=== PATIENT | female | born 1985 ===

== ENCOUNTER 2020-08-02 14:21 | Outpatient (REF) | payer OTHER, SELFPAY ==
--- NOTE | 2020-08-02 | PFT_ITS ---
INDICATION: Asthma. SPIROMETRY: FEV1 to FVC of 91% with an FEV1 of 3.05 L which is 96% predicted and an FVC of 3.34 L which is 88% predicted. No significant response to bronchodilators noted. Maximum voluntary ventilation 97% predicted. LUNG VOLUMES: Total lung capacity 81% predicted with an expiratory reserve volume of 49% predicted likely from elevated BMI. DIFFUSION CAPACITY: DLCO 82% predicted. COMPARISONS: None. INTERPRETATION: No obstructive nor restrictive ventilatory defects identified. No significant response to bronchodilators noted. Lung volumes are low normal and also a decrease in the expiratory reserve volume secondary to an elevated BMI. Diffusion capacity is also low normal. If asthma is in the differential, a methacholine challenge may be helpful in assessing for hyperreactive airways, otherwise clinical correlation warranted. George Sebastian MD MR/MODL / [id number]
== END 2020-08-02 14:22 | disposition home or self-care (01) ==
LOC: HO.RESP 14:21
PROVIDERS: PCP Internal Medicine; Visit Provider Nurse Practitioner Primary Care
DX: J45.41 Moderate persistent asthma with (acute) exacerbation (principal)
CPT/HCPCS: 94060; 94727; 94729

== ENCOUNTER → 2020-10-14 08:56 | Outpatient (BNVA) | payer OTHER, SELFPAY | PROVIDERS: PCP Family Medicine; Visit Provider Internal Medicine | DX: Z76.89 Persons encountering health services in other specified circumstances (principal) ==

== ENCOUNTER 2021-02-02 13:50 | Outpatient (REF) | payer OTHER, SELFPAY ==
--- NOTE | ~2021-02-02 | US_ITS ---
EXAMINATION: US THYROID CLINICAL INFORMATION: Nontoxic multinodular goiter. Age 35. COMPARISON: Ultrasound soft tissue head/neck thyroid dated 05/18/2020 and 08/29/2018. TECHNIQUE: Linear transducer grayscale and color Doppler examination with attention to the region of the thyroid. FINDINGS: SIZE: Measurements of the thyroid lobes and nodules are given in sagittal, anteroposterior and transverse dimensions respectively. Right Thyroid Lobe: 4.5 x 2.0 x 1.2 cm, volume 5.6 mL. Previously 5.0 x 1.9 x 1.4 cm, volume 7.0 mL. Parenchyma: The gland echotexture is heterogeneous. Thyroid vascularity is normal. Left Thyroid Lobe: 4.7 x 1.6 x 1.9 cm, volume 7.5 mL. Previously 4.2 x 1.6 x 1.6 cm, volume 5.6 mL. Parenchyma: The gland echotexture is heterogeneous. Thyroid vascularity is normal. Isthmus: 0.6 cm in maximum AP dimension. Previously 0.5 cm. Estimated total number of nodules greater than or equal to 1 cm: 0. Media Intern nodules are described as follows: 1. Location: Right mid. Size: 0.9 x 0.5 x 0.7 cm, volume 0.2 mL. Previously: 0.8 x 0.5 x 0.7 cm, volume 0.15 mL. Nodule characteristics: Composition: Solid (2). Echogenicity: Hypoechoic (2). Shape: Not taller than wide (0). Margins: Ill-defined (0). Echogenic Foci: None (0). ACR TI-RADS total points: 4 ACR TI-RADS category: 4 No significant change from prior exam. 2. Location: Left inferior. Size: 0.6 x 0.3 x 0.5 cm, volume 0.05 mL. Previously: 0.4 x 0.3 x 0.5 cm, volume 0.01 mL. Nodule characteristics: Composition: Solid (2). Echogenicity: Hyperechoic (1). Shape: Not taller than wide (0). Margins: Smooth (0). Echogenic Foci: None (0). ACR TI-RADS total points: 3 ACR TI-RADS category: 3 No significant change from prior exam. NODES: Largest node on right measures 1.5 cm short axis and approximately 3.6 cm long axis. Other right-sided nodes measures 0.9 cm short axis and under. Comparison with prior exam images shows a right-sided node measuring approximately 1.2 cm short axis and 3.4 cm long axis. Largest short axis parisa dimension on left measures 0.9 cm short axis and 1.7 cm in length along axis. Comparison with prior exam images demonstrates left-sided node measuring 0.7 x 1.7 cm. US/US thyroid IMPRESSION: 1. Right TI-RADS 4 nodule under 1 cm. No significant change. 2. Left TI-RADS 3 nodule under 1 cm. No significant change. 3. Prominent upper cervical nodes similar to prior exam. If further parisa characterization is clinically indicated, this may be performed with CT soft tissue neck with IV contrast. ACR TI-RADS RECOMMENDATION REFERENCE: Ultrasound-guided fine-needle aspiration, followup ultrasound, no further follow up. * TR3 (3 points): FNA if more than or equal to 2.5 cm in maximum dimension, followup ultrasound in 1, 3 and 5 years if 1.5 to 2.4 cm in maximum dimension. * TR4 (4-6 points): FNA if more than or equal to 1.5 cm in maximum dimension, followup ultrasound in 1, 2, 3 and 5 years if 1 to 1.4 cm in maximum dimension.
[2021-02-02 16:14] LABS: Free T4 (Free Thyroxine) 0.85 ng/dL (0.71-1.85); Thyroid Stimulating Hormone 0.64 uIU/mL (0.32-4.0); Vitamin D 25-OH Total 8.5 ng/mL (>30)
[2021-02-03 07:41] LABS: Triiodothyronine T3 Total 115 ng/dL (76-181)
[2021-02-05 19:26] LABS: Thyrotropin Receptor Antibody 4.37 IU/L (<=2.00)
[2021-02-10 12:47] LABS: Thyroid Stimulating Immunoglob 142 % baseline (<140)
== END 2021-02-02 13:51 | disposition home or self-care (01) ==
LOC: HO.US 13:50
PROVIDERS: PCP Family Medicine; Visit Provider Internal Medicine
DX: E04.2 Nontoxic multinodular goiter (principal); R59.0 Localized enlarged lymph nodes; E05.00 Thyrotoxicosis with diffuse goiter without thyrotoxic crisis or storm; E55.9 Vitamin D deficiency, unspecified
CPT/HCPCS: 36415; 76536; 82306; 83520; 84439; 84443; 84445; 84480

== ENCOUNTER 2021-02-04 15:09 | Outpatient (REF) | payer OTHER, SELFPAY | END 2021-02-04 15:10 | disposition home or self-care (01) | LOC: HO.LAB 15:09 | PROVIDERS: Visit Provider Internal Medicine | DX: Z20.822 Contact with and (suspected) exposure to COVID-19 (principal) | CPT/HCPCS: C9803; U0003; U0005 ==

== ENCOUNTER 2021-02-09 15:30 | Outpatient (REF) | payer OTHER, SELFPAY | END 2021-02-09 15:31 | disposition home or self-care (01) | LOC: HO.LAB 15:30 | PROVIDERS: Visit Provider Internal Medicine | DX: Z20.822 Contact with and (suspected) exposure to COVID-19 (principal) | CPT/HCPCS: C9803; U0003; U0005 ==

== ENCOUNTER 2021-02-14 13:35 | Emergency (ER) | payer OTHER, SELFPAY ==
--- NOTE | ~2021-02-14 | XR_ITS ---
EXAMINATION: XR CHEST CLINICAL INFORMATION: Chest tightness. COMPARISON: None TECHNIQUE: Frontal view of the chest was obtained. FINDINGS: Lungs are well-expanded and clear. The heart size and pulmonary vascularity is normal. No gross bony abnormality seen. XR/XR chest 1V IMPRESSION: Unremarkable chest exam.
[2021-02-14 13:38] VITALS: BP 136/99; BP 156/102; PULSE 81; PULSE 85; RESP 18; TEMP 36.7; O2SAT 97; O2SAT 99; BMI 52.4
--- NOTE | 2021-02-14 15:37 | PC.NURSE ---
ambulatory pulse ox remains 99-100%, hr 105, Leola SHINE aware
--- NOTE | 2021-02-14 15:38 | ECG_ITS ---
Test Reason : WEAKNESS Blood Pressure : / mmHG Vent. Rate : 080 BPM Atrial Rate : 080 BPM P-R Int : 182 ms QRS Dur : 110 ms QT Int : 394 ms P-R-T Axes : 031 003 042 degrees QTc Int : 454 ms Normal sinus rhythm Incomplete right bundle branch block Voltage criteria for left ventricular hypertrophy Abnormal ECG When compared with ECG of 18-MAY-2020 17:38, Incomplete right bundle branch block is now Present Referred By: Leola Andrew Electronically Signed By:KARLIE ELAINE
[2021-02-14 15:57] VITALS: O2SAT 99
[2021-02-14 16:18] LABS: Influenza A PCR NEGATIVE (Negative); Influenza B PCR NEGATIVE (Negative); Resp Syncy Virus RNA Qual PCR NEGATIVE (Negative); SARS COV2 PCR INHOUSE NEGATIVE (Negative)
--- NOTE | 2021-02-14 16:33 | ED.GENADULT ---
HPI - General Adult General Chief complaint: General Medical Stated complaint: Chills/ Body aches Time Seen by Provider: 02/14/21 15:04 Source: patient Mode of arrival: EMS History of Present Illness HPI narrative: 35-year-old female with a past medical history of Graves disease, multinodular thyroid, vitamin-D deficiency, presenting to the ED complaining chest tightness, intermittent SOB, worse on exertion, myalgias, generalized fatigue since last night. Admits 5 children at home are COVID-19 positive, she last tested negative for COVID-19 five days ago. Denies fever, cough, LE edema/calf pain, recent travel, abdominal pain, nausea/vomiting Onset (ago): day(s) Related Data Home Medications Medication Instructions Recorded Confirmed albuterol sulfate 90 mcg/actuation 2 puff PO Q4-6H PRN 09/06/20 10/14/20 aerosol inhaler benzonatate 100 mg capsule 100 mg PO Q8H PRN 09/06/20 10/14/20 blood pressure test kit-large #1 ea 09/06/20 10/14/20 cyclobenzaprine 10 mg tablet 10 mg PO BEDTIME 09/06/20 10/14/20 diclofenac sodium 50 mg 50 mg PO BID 09/06/20 10/14/20 tablet,delayed release ketoconazole 2 % shampoo 1 applic TOPICAL 2XW 09/06/20 10/14/20 triamcinolone acetonide 0.025 % applic TOPICAL 09/06/20 10/14/20 topical cream clindamycin HCl 300 mg capsule 300 mg PO BID 10/14/20 10/14/20 fluticasone propionate 110 0 mcg INHALATION 10/14/20 10/14/20 mcg/actuation HFA aerosol inhaler ibuprofen 800 mg tablet 800 mg PO TID 10/14/20 10/14/20 inhalational spacing device #1 ea 10/14/20 10/14/20 metoprolol tartrate 50 mg tablet 50 mg PO DAILY 10/14/20 10/14/20 Previous Rx's Medication Instructions Recorded albuterol sulfate 5 mg INHALATION Q4H PRN #30 ea 02/14/21 benzonatate [Tessalon Perles] 100 mg PO TID PRN #14 cap 02/14/21 Allergies Allergy/AdvReac Type Severity Reaction Status Date / Time aspirin [ASA] Allergy Unknown HIVES Verified 10/14/20 09:02 levofloxacin [From LEVAQUIN] Allergy Unknown RASH Verified 10/14/20 09:02 penicillin G Allergy Unknown Unknown Verified 10/14/20 09:02 Penicillins [PCN] Allergy Unknown HIVES Verified 10/14/20 09:02 Sulfa (Sulfonamide Allergy Unknown ITCHING Verified 10/14/20 09:02 Antibiotics) [SULFA (SULFONAMIDE ANTIBIOTICS)] Aspir-81 Allergy Unknown Unknown Uncoded 10/14/20 09:02 Sulfa Allergy Unknown Unknown Uncoded 10/14/20 09:02 SURGICAL TAPE Allergy Unknown UNKNOWN Uncoded 07/01/20 19:21 Review of Systems Review of Systems: Constitutional: No Fever, + Chills, No Night Sweats, + Fatigue, No Malaise ENT/Mouth: No Ear Pain, + Nasal Congestion, No Sinus Pain, No Hoarseness, No sore throat, No Rhinorrhea Eyes: No Eye Pain, No Discharge, No Vision Changes Cardiovascular: + Chest Pain, + SOB, + Dyspnea on Exertion, + Orthopnea, No Edema, No Palpitations Respiratory: + Cough, + Sputum, No Wheezing Gastrointestinal: No Nausea, No Vomiting, No Diarrhea, No Constipation, No Abdominal pain Genitourinary: No irregular bleeding, No Dysuria Musculoskeletal: No joint pain, No Myalgias, No Joint Swelling Skin: No Skin Lesions, No rash Neuro: No Weakness, No Numbness, No Paresthesias Yes all other systems are reviewed and are negative PMFSH Past Medical History Attestation statement: The following information was validated with the patient. Medical History Graves disease Multinodular thyroid Vitamin D deficiency Surgical History History of 2 sections History of excision of pilonidal cyst Family History Family History Father Hypertension Mother Hypertension Diabetes Social History Social History Smoking Status: Current every day smoker Advance Directives: Yes Advance Directives Information Provided: Yes Advance Directives on File: No Physical Exam Vital Signs: Vital Signs: Last Vital Signs Temp 98.0 F 02/14/21 13:38 Pulse 81 02/14/21 13:38 Resp 18 02/14/21 13:38 BP 156/102 H 02/14/21 13:38 Pulse Ox 99 02/14/21 15:57 Body Mass Index 52.4 Const: General: cooperative, healthy appearing, comfortable, no acute distress, well developed, alert and awake Orientation/consciousness: patient oriented x3 Limitations: no limitations HENMT: Head: Yes normal to inspection Ears: hearing grossly normal bilaterally General nose exam: Normal external nose present Face and sinus: Yes normal facial exam Eyes: General: appearance normal, both eyes and all related structures EOM: EOMs intact bilaterally Neck: Neck: Yes normal visual inspection and Yes no meningeal signs Resp: Effort & Inspection: normal respiratory effort Auscultation: clear to auscultation bilaterally, no rales, no rhonchi and no wheezes Cardio: Rate: regular rate Heart sounds: S1 normal heart sound present and S2 normal heart sound present GI: Inspection: Yes normal to inspection Palpation (GI): Soft to palpation, nontender, no guarding and not rigid Skin: Rashes: no rashes Wounds: no wounds Neuro: General: patient oriented x3 and no meningeal signs Gait exam (Neuro): Normal gait present Extrem: General: Yes normal to inspection, Yes no pedal edema and Yes no calf tenderness Course Course Course Narrative: XR chest 1V IMPRESSION: Unremarkable chest exam. -patient maintain saturations of 99-100% on RA during ambulation -COVID-19/influenza/RSV negative -1700--troponin and BNP negative. Results discussed with patient including worrisome signs and symptoms and strict return precautions. She verbalized understanding feel safe for discharge home Medical Decision Making MDM Narrative Medical decision making narrative: On exam mildly hypertensive, NAD, nontoxic appearing, lungs CTA, no LE edema or calf tenderness. Concern for viral syndrome/COVID-19. Rule out pneumonia and ACS. Unlikely PE/CHF Plan: EKG, labs, COVID-19 testing, ambulatory pulse ox Lab Data Result diagrams: 02/14/21 16:36 02/14/21 16:36 Labs: Lab Results 02/14/21 02/14/21 02/14/21 Range/Units 15:25 16:36 16:36 WBC 10.0 (4.8-10.8) X10*3/uL RBC 4.03 L (4.20-5.50) X10*6/uL Hgb 10.9 L (12.0-16.0) g/dl Hct 35.7 L (37-47) % MCV 88.6 (80-98) fL MCH 27.0 (27.0-33.0) pg MCHC 30.5 L (31.0-35.0) g/dl RDW 17.1 H (11.0-16.0) % Plt Count 284 (160-400) X10*3/uL MPV 10.4 (9.4-12.3) fL Immature Gran % (Auto) 0.3 (0.0-0.4) % Neut % (Auto) 67.9 (45-73) % Lymph % (Auto) 22.8 (20-40) % [place] % (Auto) 5.1 (2-11) % Eos % (Auto) 3.4 (0-4) % Baso % (Auto) 0.5 (0-2) % Lymph # (Auto) 2.3 (1.2-4.9) X10*3/uL [place] # (Auto) 0.5 (0.1-1.2) X10*3/uL Eos # (Auto) 0.3 (0.0-0.4) X10*3/uL Baso # (Auto) 0.1 (0.0-0.2) X10*3/uL Abs Immat Gran (auto) 0.03 (0.00-0.03) X10*3/uL Absolute Neuts (auto) 6.8 (2.0-8.3) X10*3/uL Absolute Nucleated RBC 0.000 (0.0-0.012) X10*3/uL Nucleated RBC % (auto) 0.0 (0.0-0.2) /100WBC Hold Blue Top Sodium 139 (135-145) mmol/L Potassium 4.0 (3.3-5.1) mmol/L Chloride 104 (96-108) mmol/L Carbon Dioxide 26 (22-29) mmol/L Anion Gap 13 (12-20) BUN 13 (9-16) mg/dL Creatinine 0.77 (0.5-1.4) mg/dL Estim Creat Clear Calc 144.2 Estimated GFR > 60 Random Glucose 98 (60-115) mg/dL Calcium 9.3 (8.4-10.2) mg/dL Troponin I High Sens (<3.5-17.0) ng/L B-Natriuretic Peptide (<100) pg/mL Coronavirus (PCR) NEGATIVE (Negative) Influenza Type A (PCR) NEGATIVE (Negative) Influenza Type B (PCR) NEGATIVE (Negative) RSV RNA Qual (PCR) NEGATIVE (Negative) 02/14/21 02/14/21 Range/Units 16:36 16:36 WBC (4.8-10.8) X10*3/uL RBC (4.20-5.50) X10*6/uL Hgb (12.0-16.0) g/dl Hct (37-47) % MCV (80-98) fL MCH (27.0-33.0) pg MCHC (31.0-35.0) g/dl RDW (11.0-16.0) % Plt Count (160-400) X10*3/uL MPV (9.4-12.3) fL Immature Gran % (Auto) (0.0-0.4) % Neut % (Auto) (45-73) % Lymph % (Auto) (20-40) % [place] % (Auto) (2-11) % Eos % (Auto) (0-4) % Baso % (Auto) (0-2) % Lymph # (Auto) (1.2-4.9) X10*3/uL [place] # (Auto) (0.1-1.2) X10*3/uL Eos # (Auto) (0.0-0.4) X10*3/uL Baso # (Auto) (0.0-0.2) X10*3/uL Abs Immat Gran (auto) (0.00-0.03) X10*3/uL Absolute Neuts (auto) (2.0-8.3) X10*3/uL Absolute Nucleated RBC (0.0-0.012) X10*3/uL Nucleated RBC % (auto) (0.0-0.2) /100WBC Hold Blue Top SEE NOTE Sodium (135-145) mmol/L Potassium (3.3-5.1) mmol/L Chloride (96-108) mmol/L Carbon Dioxide (22-29) mmol/L Anion Gap (12-20) BUN (9-16) mg/dL Creatinine (0.5-1.4) mg/dL Estim Creat Clear Calc Estimated GFR Random Glucose (60-115) mg/dL Calcium (8.4-10.2) mg/dL Troponin I High Sens < 3.5 (<3.5-17.0) ng/L B-Natriuretic Peptide < 10 (<100) pg/mL Coronavirus (PCR) (Negative) Influenza Type A (PCR) (Negative) Influenza Type B (PCR) (Negative) RSV RNA Qual (PCR) (Negative) ECG Data Attestation: I personally reviewed and interpreted this ECG as follows: Interpretation: EKG normal sinus rhythm with rate of 80. Nonischemic/no STEMI, QTC 454 Discharge Plan Discharge Clinical Impression: Acute viral syndrome Patient Disposition: Home, Self-Care Instructions: Viral Syndrome (ED) Additional Instructions: Your chest x-ray was unremarkable today in the ED. Her COVID-19 was negative Tessalon Perles for cough, take as needed Albuterol inhaler will help with shortness of breath/wheezing, take as needed Follow-up with your doctor Prescriptions: New benzonatate [Tessalon Perles] 100 mg capsule 100 mg PO TID PRN (Reason: cough) Qty: 14 RF: 0 albuterol sulfate 2.5 mg/0.5 mL solution for nebulization 5 mg inhalation Q4H PRN (Reason: shortness of breath or wheezing) Qty: 30 RF: 0 No Action cyclobenzaprine 10 mg tablet 10 mg PO BEDTIME RF: 0 diclofenac sodium 50 mg tablet,delayed release (DR/EC) 50 mg PO BID RF: 0 albuterol sulfate 90 mcg/actuation HFA aerosol inhaler 2 puff PO Q4-6H PRNRF: 0 triamcinolone acetonide 0.025 % cream topical RF: 0 (DME) blood pressure test kit-large Kit See Rx Instructions ea .ROUTE .MEDSUPPLY Qty: 1 RF: 0 ketoconazole 2 % shampoo 1 applic topical 2XW RF: 0 benzonatate 100 mg capsule 100 mg PO Q8H PRN (Reason: cough) RF: 0 (DME) Aerochamber Plus Flow-Vu Spacer See Rx Instructions ea .ROUTE .MEDSUPPLY Qty: 1 RF: 0 Flovent HFA 110 mcg/actuation HFA aerosol inhaler 0 mcg inhalation RF: 0 ibuprofen 800 mg tablet 800 mg PO TID RF: 0 clindamycin HCl 300 mg capsule 300 mg PO BID RF: 0 metoprolol tartrate 50 mg tablet 50 mg PO DAILY RF: 0 Referrals: Thania Padgett MD [Primary Care Provider] - 2 days
[2021-02-14 16:42] LABS: MANUAL DIFF FLAG NO
[2021-02-14 16:45] LABS: Basophils Absolute Auto 0.1 X10*3/uL (0.0-0.2); Basophils Percent Auto 0.5 % (0-2); Eosinophils Absolute Auto 0.3 X10*3/uL (0.0-0.4); Eosinophils Percent Auto 3.4 % (0-4); Hematocrit 35.7 % (37-47); Hemoglobin 10.9 g/dl (12.0-16.0); Imm Gran Abs Auto 0.03 X10*3/uL (0.00-0.03); Imm Gran Pct Auto 0.3 % (0.0-0.4); Lymphocytes Absolute Auto 2.3 X10*3/uL (1.2-4.9); Lymphocytes Percent Auto 22.8 % (20-40); Mean Corpuscular HGB Conc 30.5 g/dl (31.0-35.0); Mean Corpuscular Volume 88.6 fL (80-98); Mean Platelet Volume 10.4 fL (9.4-12.3); Monocytes Absolute Auto 0.5 X10*3/uL (0.1-1.2); Monocytes Percent Auto 5.1 % (2-11); Neutrophils Absolute Auto 6.8 X10*3/uL (2.0-8.3); Neutrophils Percent Auto 67.9 % (45-73); Platelet Count 284 X10*3/uL (160-400); Red Blood Count 4.03 X10*6/uL (4.20-5.50); Red Cell Distribution Width 17.1 % (11.0-16.0)
[2021-02-14 17:00] LABS: Anion Gap 13 (12-20); Blood Urea Nitrogen 13 mg/dL (9-16); Calcium 9.3 mg/dL (8.4-10.2); Carbon Dioxide 26 mmol/L (22-29); Chloride 104 mmol/L (96-108); Creatinine Clr Calc Pharmacy 144.2; Estimated Glomerular Filt Rate > 60; Glucose Random 98 mg/dL (60-115); Sodium 139 mmol/L (135-145)
[2021-02-14 17:09] LABS: B Type Natriuretic Peptide < 10 pg/mL (<100); Troponin-I High Sensitivity < 3.5 ng/L (<3.5-17.0)
== END 2021-02-14 17:31 | disposition home or self-care (01) ==
PROVIDERS: Physician Assistant; Emergency Provider Internal Medicine; PCP Family Medicine
DX: B34.9 Viral infection, unspecified (principal); M79.10 Myalgia, unspecified site; E55.9 Vitamin D deficiency, unspecified; F17.200 Nicotine dependence, unspecified, uncomplicated; Z71.6 Tobacco abuse counseling; Z79.899 Other long term (current) drug therapy; Z20.822 Contact with and (suspected) exposure to COVID-19
CPT/HCPCS: 0241U; 36415; 71045; 80048; 83880; 84484; 85025; 93005; 99283

== ENCOUNTER 2021-03-09 12:11 | Emergency (ER) | payer OTHER, SELFPAY ==
--- NOTE | ~2021-03-09 | US_ITS ---
EXAMINATION: US VENOUS ULTRASOUND WITH DOPPLER LOWER EXTREMITY, LEFT CLINICAL INFORMATION: Leg pain and swelling COMPARISON: None TECHNIQUE: Ultrasound of the deep veins is performed from the hip to the calf with compression sonography and color and pulse Doppler assessment. Spectral analysis with color-flow imaging is performed. FINDINGS: Patient is unable to tolerate full compression of left common femoral and greater saphenous vein or condyle flow is visualized. There is normal venous compression and respiratory variation and augmented flow. The visualized common femoral vein, superficial femoral vein, profunda femoral vein, popliteal vein, and the trifurcation region shows no evidence of deep venous thrombosis. There is no significant popliteal fossa cyst. If the patient's symptoms persist, followup ultrasound in 5 days 7 days might be of value to exclude proximal propagation from a non-visualized calf vein. US/US venous duplex LE LT IMPRESSION: No DVT demonstrated in the left lower extremity.
[2021-03-09 12:40] VITALS: BP 181/115; RESP 16; TEMP 36.7; BMI 53.2
[2021-03-09 14:30] VITALS: BP 145/76; PULSE 85; RESP 18; O2SAT 96
--- NOTE | 2021-03-09 14:30 | ECG_ITS ---
Test Reason : HYPERTENSION Blood Pressure : / mmHG Vent. Rate : 083 BPM Atrial Rate : 083 BPM P-R Int : 170 ms QRS Dur : 106 ms QT Int : 376 ms P-R-T Axes : 044 007 032 degrees QTc Int : 441 ms Normal sinus rhythm Incomplete right bundle branch block Voltage criteria for left ventricular hypertrophy Abnormal ECG When compared with ECG of 14-FEB-2021 16:07, No significant change was found Referred By: Sydnie Philippe Electronically Signed By:KARLIE ELAINE
--- NOTE | 2021-03-09 14:32 | ED.GENADULT ---
HPI - General Adult General Chief complaint: General Medical <SILVIO Cain - Last Filed: 03/09/21 23:19> Stated complaint: leg swelling, high blood pressure <SILVIO Cain - Last Filed: 03/09/21 23:19> Time Seen by Provider: 03/09/21 14:18 <SILVIO Cain - Last Filed: 03/09/21 23:19> Source: patient, RN notes reviewed and old records reviewed <SILVIO Cain - Last Filed: 03/09/21 23:19> Mode of arrival: ambulatory <SILVIO Cain - Last Filed: 03/09/21 23:19> Limitations: no limitations <SILVIO Cain - Last Filed: 03/09/21 23:19> History of Present Illness HPI narrative: 35-year-old female with past medical history of vitamin-D deficiency, multinodular thyroid, obesity, asthma and Graves disease here today for complaining of high blood pressure and left leg pain and swelling. Patient also reports that she is short of breath with exertion. She also is SOB when she is lying down. Patient reports that she does have seasonal allergies and does not have anything at home to take for that except for her inhalers. Denies chest pain, syncope, presyncope. Patient reports that she called her doctor this morning when she checked her blood pressure was 160/110, however that was before she took her metoprolol. She was told to go to emergency department <SILVIO Cain - Last Filed: 03/09/21 23:19> Related Data Home medications: Home Medications Medication Instructions Recorded Confirmed albuterol sulfate 90 mcg/actuation 2 puff PO Q4-6H PRN 09/06/20 10/14/20 aerosol inhaler benzonatate 100 mg capsule 100 mg PO Q8H PRN 09/06/20 10/14/20 blood pressure test kit-large #1 ea 09/06/20 10/14/20 cyclobenzaprine 10 mg tablet 10 mg PO BEDTIME 09/06/20 10/14/20 diclofenac sodium 50 mg 50 mg PO BID 09/06/20 10/14/20 tablet,delayed release ketoconazole 2 % shampoo 1 applic TOPICAL 2XW 09/06/20 10/14/20 triamcinolone acetonide 0.025 % applic TOPICAL 09/06/20 10/14/20 topical cream clindamycin HCl 300 mg capsule 300 mg PO BID 10/14/20 10/14/20 fluticasone propionate 110 0 mcg INHALATION 10/14/20 10/14/20 mcg/actuation HFA aerosol inhaler ibuprofen 800 mg tablet 800 mg PO TID 10/14/20 10/14/20 inhalational spacing device #1 ea 10/14/20 10/14/20 metoprolol tartrate 50 mg tablet 50 mg PO DAILY 10/14/20 10/14/20 Previous Rx's Medication Instructions Recorded albuterol sulfate 5 mg INHALATION Q4H PRN #30 ea 02/14/21 benzonatate [Tessalon Perles] 100 mg PO TID PRN #14 cap 02/14/21 loratadine [Claritin] 10 mg PO DAILY #20 tab 03/09/21 <SILVIO Cain - Last Filed: 03/09/21 23:19> Allergies/adverse reactions: Allergies Allergy/AdvReac Type Severity Reaction Status Date / Time aspirin [ASA] Allergy Unknown HIVES Verified 03/09/21 12:45 levofloxacin [From LEVAQUIN] Allergy Unknown RASH Verified 03/09/21 12:45 penicillin G Allergy Unknown Unknown Verified 03/09/21 12:45 Penicillins [PCN] Allergy Unknown HIVES Verified 03/09/21 12:45 Sulfa (Sulfonamide Allergy Unknown ITCHING Verified 03/09/21 12:45 Antibiotics) [SULFA (SULFONAMIDE ANTIBIOTICS)] Aspir-81 Allergy Unknown Unknown Uncoded 10/14/20 09:02 Sulfa Allergy Unknown Unknown Uncoded 10/14/20 09:02 SURGICAL TAPE Allergy Unknown UNKNOWN Uncoded 07/01/20 19:21 <SILVIO Cain - Last Filed: 03/09/21 23:19> Review of Systems Review of Systems: Constitutional : No Weight loss, No Fever, No Chills, No Night Sweats, No Fatigue, No Malaise ENT/Mouth : No Hearing loss, No Ear Pain, No Nasal Congestion, No Sinus Pain, No Hoarseness, No sore throat, No Rhinorrhea, No Swallowing Difficulty Eyes: No Eye Pain, No Swelling, No Redness, No Foreign Body, No Discharge, No Vision Changes Cardiovascular : No Chest Pain, SOB,Dyspnea on Exertion, No Orthopnea, No Edema, No Palpitations Respiratory : No Cough, No Sputum, No Wheezing, No Smoke Exposure, No Dyspnea Gastrointestinal : No Nausea, No Vomiting, No Diarrhea, No Constipation, No abdominal Pain, No Hematochezia, No Melena Genitourinary : no irregular bleeding, No Dysuria, No Urinary Frequency, No Hematuria, No Urinary Incontinence, No Urgency, No Flank Pain, No Urinary Flow Changes, No Hesitancy Musculoskeletal : No joint pain, No Myalgias, No Joint Swelling Skin : No Skin Lesions, No rash Neuro : No Weakness, No Numbness, No Paresthesias, No Loss of Consciousness, No Dizziness, No Headache Psych : No Anxiety/Panic, No Depression, No SI/HI/AH/VH, No Social Issues, Heme/Lymph: No Bruising, No Bleeding,No Lymphadenopathy Endocrine : No Polyuria, No Polydipsia, No Temperature Intolerance <[facility] - Last Filed: 03/09/21 23:19> Yes all other systems are reviewed and are negative <TRUMAN Cain - Last Filed: 03/09/21 23:19> PMFSH Past Medical History Medical History: Medical History Graves disease Multinodular thyroid Vitamin D deficiency <[facility] - Last Filed: 03/09/21 23:19> Surgical History: Surgical History History of 2 sections History of excision of pilonidal cyst <TRUMAN Cain - Last Filed: 03/09/21 23:19> Family History Family History: Family History Father Hypertension Mother Hypertension Diabetes <TRUMAN Cain - Last Filed: 03/09/21 23:19> Social History Social History: Social History Alcohol intake: current Alcohol intake frequency: holidays/special occasions only Patient Tobacco Use Status: Current everyday Tobacco user Smoked in Last 30 Days: Yes Use of substances other than those prescribed or required for medical reasons: No Advance Directives: No Advance Directives Information Provided: No Patient : No <CHARLEE CainP-BC - Last Filed: 03/09/21 23:19> Physical Exam Vital Signs: Vital Signs: Last Vital Signs Temp 98.1 F 03/09/21 12:40 Pulse 85 03/09/21 14:30 Resp 18 03/09/21 14:30 BP 145/76 H 03/09/21 14:30 Pulse Ox 96 03/09/21 14:30 Body Mass Index 53.2 <Sydnie Philippe [employer] - Last Filed: 03/09/21 23:19> Vital Signs: Last Vital Signs Temp 98.1 F 03/09/21 12:40 Pulse 85 03/09/21 14:30 Resp 18 03/09/21 14:30 BP 145/76 H 03/09/21 14:30 Pulse Ox 96 03/09/21 14:30 Body Mass Index 53.2 <Juan Benitez MD - Last Filed: 03/11/21 13:53> Const: General: healthy appearing, no acute distress and well developed <CHARLEE CainP-BC - Last Filed: 03/09/21 23:19> Nutritional Appearance: well nourished <CHARLEE CainP-BC - Last Filed: 03/09/21 23:19> Orientation/consciousness: patient oriented x3 <Sydnie Philippe [employer] - Last Filed: 03/09/21 23:19> Neck: Neck: Yes normal visual inspection, Yes full ROM and Yes trachea midline <CHARLEE CainP-BC - Last Filed: 03/09/21 23:19> Thyroid: Thyroid normal <CHARLEE CainP-BC - Last Filed: 03/09/21 23:19> Resp: Auscultation: clear to auscultation bilaterally <SILVIO Cain - Last Filed: 03/09/21 23:19> Cardio: Rate: regular rate <SILVIO Cain - Last Filed: 03/09/21 23:19> Rhythm: regular rhythm <SILVIO Cain - Last Filed: 03/09/21 23:19> GI: Inspection: Yes normal to inspection and No distended <SILVIO Cain - Last Filed: 03/09/21 23:19> Palpation (GI): No hepatosplenomegaly present <SILVIO Cain - Last Filed: 03/09/21 23:19> Auscultation: normal bowel sounds <SILVIO Cain - Last Filed: 03/09/21 23:19> Skin: General skin exam: elasticity normal, turgor normal and dry skin <SILVIO Cain - Last Filed: 03/09/21 23:19> Neuro: General: patient oriented x3 <SILVIO Cain - Last Filed: 03/09/21 23:19> Course Course Course Narrative: 35-year-old female with past medical history of multinodular thyroid, Graves disease, asthma, morbid obesity here today with shortness of breath, left leg swelling and pain and high blood pressure. Blood pressure in the ED 145/76 heart rate 85. Will do ultrasound of her L leg to rule out DVT. Patient reports that she does have seasonal allergies, besides her inhaler does not take anything else for it. Her lung sounds are clear anteriorly and posteriorly. Patient looks common relaxed. <SILVIO Cain - Last Filed: 03/09/21 23:19> I have reviewed the chart <Juan Benitez MD - Last Filed: 03/11/21 13:53> Reevaluation(s) Reevaluation #1: Patient denies any CP, SOB. All lab work negative for any abnormalities, mild anemia, that has unchanged since February 14. BNP negative. Ultrasound done and negative for DVT. Patient reports that she does have seasonal allergies, I will send her home with Michael. She is agreeable to that. She will follow-up with her PCP in 2-3 days <KYLIE Cain- - Last Filed: 03/09/21 23:19> Medical Decision Making Lab Data Result diagrams: : 03/09/21 14:52 03/09/21 14:52 <KYLIE Cain-BC - Last Filed: 03/09/21 23:19> Labs: Lab Results 03/09/21 03/09/21 03/09/21 Range/Units 14:52 14:52 14:52 WBC 10.8 (4.8-10.8) X10*3/uL RBC 4.02 L (4.20-5.50) X10*6/uL Hgb 10.8 L (12.0-16.0) g/dl Hct 35.1 L (37-47) % MCV 87.3 (80-98) fL MCH 26.9 L (27.0-33.0) pg MCHC 30.8 L (31.0-35.0) g/dl RDW 16.3 H (11.0-16.0) % Plt Count 291 (160-400) X10*3/uL MPV 10.7 (9.4-12.3) fL Immature Gran % (Auto) 0.3 (0.0-0.4) % Neut % (Auto) 71.5 (45-73) % Lymph % (Auto) 18.5 L (20-40) % [place] % (Auto) 5.5 (2-11) % Eos % (Auto) 3.6 (0-4) % Baso % (Auto) 0.6 (0-2) % Lymph # (Auto) 2.0 (1.2-4.9) X10*3/uL [place] # (Auto) 0.6 (0.1-1.2) X10*3/uL Eos # (Auto) 0.4 (0.0-0.4) X10*3/uL Baso # (Auto) 0.1 (0.0-0.2) X10*3/uL Abs Immat Gran (auto) 0.03 (0.00-0.03) X10*3/uL Absolute Neuts (auto) 7.8 (2.0-8.3) X10*3/uL Absolute Nucleated RBC 0.000 (0.0-0.012) X10*3/uL Nucleated RBC % (auto) 0.0 (0.0-0.2) /100WBC Sodium 137 (135-145) mmol/L Potassium 4.1 (3.3-5.1) mmol/L Chloride 107 (96-108) mmol/L Carbon Dioxide 20 L (22-29) mmol/L Anion Gap 14 (12-20) BUN 11 (9-16) mg/dL Creatinine 0.73 (0.5-1.4) mg/dL Estim Creat Clear Calc 153.6 Estimated GFR > 60 Random Glucose 119 H (60-115) mg/dL Calcium 9.0 (8.4-10.2) mg/dL Troponin I High Sens < 3.5 (<3.5-17.0) ng/L B-Natriuretic Peptide < 10 (<100) pg/mL <Sydnie Philippe, [employer]- - Last Filed: 03/09/21 23:19> Lab Results 03/09/21 03/09/21 03/09/21 Range/Units 14:52 14:52 14:52 WBC 10.8 (4.8-10.8) X10*3/uL RBC 4.02 L (4.20-5.50) X10*6/uL Hgb 10.8 L (12.0-16.0) g/dl Hct 35.1 L (37-47) % MCV 87.3 (80-98) fL MCH 26.9 L (27.0-33.0) pg MCHC 30.8 L (31.0-35.0) g/dl RDW 16.3 H (11.0-16.0) % Plt Count 291 (160-400) X10*3/uL MPV 10.7 (9.4-12.3) fL Immature Gran % (Auto) 0.3 (0.0-0.4) % Neut % (Auto) 71.5 (45-73) % Lymph % (Auto) 18.5 L (20-40) % [place] % (Auto) 5.5 (2-11) % Eos % (Auto) 3.6 (0-4) % Baso % (Auto) 0.6 (0-2) % Lymph # (Auto) 2.0 (1.2-4.9) X10*3/uL [place] # (Auto) 0.6 (0.1-1.2) X10*3/uL Eos # (Auto) 0.4 (0.0-0.4) X10*3/uL Baso # (Auto) 0.1 (0.0-0.2) X10*3/uL Abs Immat Gran (auto) 0.03 (0.00-0.03) X10*3/uL Absolute Neuts (auto) 7.8 (2.0-8.3) X10*3/uL Absolute Nucleated RBC 0.000 (0.0-0.012) X10*3/uL Nucleated RBC % (auto) 0.0 (0.0-0.2) /100WBC Sodium 137 (135-145) mmol/L Potassium 4.1 (3.3-5.1) mmol/L Chloride 107 (96-108) mmol/L Carbon Dioxide 20 L (22-29) mmol/L Anion Gap 14 (12-20) BUN 11 (9-16) mg/dL Creatinine 0.73 (0.5-1.4) mg/dL Estim Creat Clear Calc 153.6 Estimated GFR > 60 Random Glucose 119 H (60-115) mg/dL Calcium 9.0 (8.4-10.2) mg/dL Troponin I High Sens < 3.5 (<3.5-17.0) ng/L B-Natriuretic Peptide < 10 (<100) pg/mL <Juan Benitez MD - Last Filed: 03/11/21 13:53> Discharge Plan Discharge Clinical Impression: FINLEY (dyspnea on exertion) <SILVIO Cain - Last Filed: 03/09/21 23:19> Patient Disposition: Home, Self-Care <SILVIO Cain - Last Filed: 03/09/21 23:19> Instructions: Shortness of Breath (ED) <SILVIO Cain - Last Filed: 03/09/21 23:19> Additional Instructions: You were seen here today for complaints of high blood pressure, shortness of breath and left leg swelling and pain. All your lab work was negative for any abnormal findings. Your ultrasound was also negative for any blood clots. Follow-up with your primary care doctor in 2-3 days. You may return to emergency department if you symptoms will return or if you will experience any additional concerning symptoms. Please make sure you take your medication for blood pressure <SILVIO Cain - Last Filed: 03/09/21 23:19> Prescriptions: New loratadine [Claritin] 10 mg tablet 10 mg PO DAILY Qty: 20 RF: 0 No Action benzonatate [Tessalon Perles] 100 mg capsule 100 mg PO TID PRN (Reason: cough) Qty: 14 RF: 0 albuterol sulfate 2.5 mg/0.5 mL solution for nebulization 5 mg inhalation Q4H PRN (Reason: shortness of breath or wheezing) Qty: 30 RF: 0 cyclobenzaprine 10 mg tablet 10 mg PO BEDTIME RF: 0 diclofenac sodium 50 mg tablet,delayed release (DR/EC) 50 mg PO BID RF: 0 albuterol sulfate 90 mcg/actuation HFA aerosol inhaler 2 puff PO Q4-6H PRNRF: 0 triamcinolone acetonide 0.025 % cream topical RF: 0 (DME) blood pressure test kit-large Kit See Rx Instructions ea .ROUTE .MEDSUPPLY Qty: 1 RF: 0 ketoconazole 2 % shampoo 1 applic topical 2XW RF: 0 benzonatate 100 mg capsule 100 mg PO Q8H PRN (Reason: cough) RF: 0 (DME) Aerochamber Plus Flow-Vu Spacer See Rx Instructions ea .ROUTE .MEDSUPPLY Qty: 1 RF: 0 Flovent HFA 110 mcg/actuation HFA aerosol inhaler 0 mcg inhalation RF: 0 ibuprofen 800 mg tablet 800 mg PO TID RF: 0 clindamycin HCl 300 mg capsule 300 mg PO BID RF: 0 metoprolol tartrate 50 mg tablet 50 mg PO DAILY RF: 0 <SILVIO Cain - Last Filed: 03/09/21 23:19> Referrals: Thania Padgett MD [Primary Care Provider] - 2 days <SILVIO Cain - Last Filed: 03/09/21 23:19> Interventions: ED Discharge Assessment Last Done: 03/09/21 18:31 <SILVIO Cain - Last Filed: 03/09/21 23:19> Discharge Date/Time: 03/09/21 18:33 <SILVIO Cain - Last Filed: 03/09/21 23:19>
[2021-03-09 15:01] LABS: Basophils Absolute Auto 0.1 X10*3/uL (0.0-0.2); Basophils Percent Auto 0.6 % (0-2); Eosinophils Absolute Auto 0.4 X10*3/uL (0.0-0.4); Eosinophils Percent Auto 3.6 % (0-4); Hematocrit 35.1 % (37-47); Hemoglobin 10.8 g/dl (12.0-16.0); Imm Gran Abs Auto 0.03 X10*3/uL (0.00-0.03); Imm Gran Pct Auto 0.3 % (0.0-0.4); Lymphocytes Percent Auto 18.5 % (20-40); MANUAL DIFF FLAG NO; Mean Corpuscular HGB Conc 30.8 g/dl (31.0-35.0); Mean Corpuscular Hemoglobin 26.9 pg (27.0-33.0); Mean Corpuscular Volume 87.3 fL (80-98); Mean Platelet Volume 10.7 fL (9.4-12.3); Monocytes Absolute Auto 0.6 X10*3/uL (0.1-1.2); Monocytes Percent Auto 5.5 % (2-11); Neutrophils Absolute Auto 7.8 X10*3/uL (2.0-8.3); Neutrophils Percent Auto 71.5 % (45-73); Platelet Count 291 X10*3/uL (160-400); Red Blood Count 4.02 X10*6/uL (4.20-5.50); Red Cell Distribution Width 16.3 % (11.0-16.0); White Blood Count 10.8 X10*3/uL (4.8-10.8)
[2021-03-09 15:32] LABS: Anion Gap 14 (12-20); Blood Urea Nitrogen 11 mg/dL (9-16); Carbon Dioxide 20 mmol/L (22-29); Chloride 107 mmol/L (96-108); Creatinine Clr Calc Pharmacy 153.6; Estimated Glomerular Filt Rate > 60; Glucose Random 119 mg/dL (60-115); Potassium 4.1 mmol/L (3.3-5.1); Sodium 137 mmol/L (135-145)
[2021-03-09 15:34] LABS: B Type Natriuretic Peptide < 10 pg/mL (<100); Troponin-I High Sensitivity < 3.5 ng/L (<3.5-17.0)
== END 2021-03-09 18:33 | disposition home or self-care (01) ==
PROVIDERS: Nurse Practitioner Family; Emergency Provider Emergency Medicine; PCP Family Medicine
DX: R60.0 Localized edema (principal); R06.00 Dyspnea, unspecified; F17.200 Nicotine dependence, unspecified, uncomplicated; Z71.6 Tobacco abuse counseling; Z79.899 Other long term (current) drug therapy
CPT/HCPCS: 36415; 80048; 83880; 84484; 85025; 93005; 93971; 99285

== ENCOUNTER 2021-03-23 10:31 | Emergency (ER) | payer OTHER, SELFPAY ==
--- NOTE | 2021-03-23 | ECG_ITS ---
Test Reason : PALPITATIONS Blood Pressure : / mmHG Vent. Rate : 106 BPM Atrial Rate : 106 BPM P-R Int : 158 ms QRS Dur : 102 ms QT Int : 352 ms P-R-T Axes : 048 001 069 degrees QTc Int : 467 ms Sinus tachycardia Voltage criteria for left ventricular hypertrophy Nonspecific ST and T wave abnormality Abnormal ECG When compared with ECG of 09-MAR-2021 15:16, Nonspecific ST abnormality are now Present Referred By: Generic ED Physician Electronically Signed By:MICHELINE STREET MD
--- NOTE | ~2021-03-23 | XR_ITS ---
EXAMINATION: XR CHEST CLINICAL INFORMATION: Question pneumonia COMPARISON: Previous chest x-ray most recent February 2021 TECHNIQUE: Frontal view of the chest was obtained. FINDINGS: No significant abnormality is noted involving the heart, lungs, mediastinum, bony thorax or soft tissues. XR/XR chest 1V IMPRESSION: Unremarkable examination.
[2021-03-23 10:35] VITALS: BP 146/88; PULSE 91; RESP 18; TEMP 36.6; O2SAT 95; BMI 53.2
--- NOTE | 2021-03-23 14:05 | ED_ITS ---
HPI - General Adult General Chief complaint: Anxiety Stated complaint: ? irregular hr Time Seen by Provider: 03/23/21 13:46 Source: patient Mode of arrival: ambulatory Limitations: no limitations History of Present Illness HPI narrative: Patient presents to ED for palpitations. Patient states she has felt like her heart been skipping of beats since last night. Patient states family history of of atrial fibrillation. 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 Patient not vaccinated for COVID. Patient denies any chest pain or shortness of breath. Patient denies any leg swelling, calf pain, or chest pain on inspiration Related Data Home Medications Medication Instructions Recorded Confirmed albuterol sulfate 90 mcg/actuation 2 puff PO Q4-6H PRN 09/06/20 10/14/20 aerosol inhaler benzonatate 100 mg capsule 100 mg PO Q8H PRN 09/06/20 10/14/20 blood pressure test kit-large #1 ea 09/06/20 10/14/20 cyclobenzaprine 10 mg tablet 10 mg PO BEDTIME 09/06/20 10/14/20 diclofenac sodium 50 mg 50 mg PO BID 09/06/20 10/14/20 tablet,delayed release ketoconazole 2 % shampoo 1 applic TOPICAL 2XW 09/06/20 10/14/20 triamcinolone acetonide 0.025 % applic TOPICAL 09/06/20 10/14/20 topical cream clindamycin HCl 300 mg capsule 300 mg PO BID 10/14/20 10/14/20 fluticasone propionate 110 0 mcg INHALATION 10/14/20 10/14/20 mcg/actuation HFA aerosol inhaler ibuprofen 800 mg tablet 800 mg PO TID 10/14/20 10/14/20 inhalational spacing device #1 ea 10/14/20 10/14/20 metoprolol tartrate 50 mg tablet 50 mg PO DAILY 10/14/20 10/14/20 Previous Rx's Medication Instructions Recorded albuterol sulfate 5 mg INHALATION Q4H PRN #30 ea 02/14/21 benzonatate [Tessalon Perles] 100 mg PO TID PRN #14 cap 02/14/21 loratadine [Claritin] 10 mg PO DAILY #20 tab 03/09/21 Allergies Allergy/AdvReac Type Severity Reaction Status Date / Time aspirin [ASA] Allergy Unknown HIVES Verified 03/23/21 10:41 levofloxacin [From LEVAQUIN] Allergy Unknown RASH Verified 03/23/21 10:41 penicillin G Allergy Unknown Unknown Verified 03/23/21 10:41 Penicillins [PCN] Allergy Unknown HIVES Verified 03/23/21 10:41 Sulfa (Sulfonamide Allergy Unknown ITCHING Verified 03/23/21 10:41 Antibiotics) [SULFA (SULFONAMIDE ANTIBIOTICS)] Aspir-81 Allergy Unknown Unknown Uncoded 10/14/20 09:02 Sulfa Allergy Unknown Unknown Uncoded 10/14/20 09:02 SURGICAL TAPE Allergy Unknown UNKNOWN Uncoded 07/01/20 19:21 Review of Systems Review of Systems: Yes all other systems are reviewed and are negative Constitutional: Constitutional: Reports as per HPI and Reports no additional constitutional complaints Eyes: Eyes: Reports as per HPI and Reports no additional eye complaints ENT: Reports system reviewed and no additional complaints, except as documented and Reports as per HPI Cardiovascular: Cardiovascular: Reports as per HPI, Reports no additional car diovascular complaints and Denies chest pain Comments: Palpitation Respiratory: Respiratory: Reports as per HPI and Reports no additional respiratory complaints Gastrointestinal: Gastrointestinal: Reports as per HPI and Reports no additional gastrointestinal complaints Genitourinary: Genitourinary: Reports no additional female genitourinary co mplaints and Reports as per HPI Musculoskeletal: Musculoskeletal: Reports no additional musculoskeletal complaints and Reports as per HPI Neurologic: Reports system reviewed and no additional complaints, except as documented and Reports as per HPI Psychiatric: Psychiatric: Reports no additional psychiatric complaints and Reports as per HPI PMFSH Past Medical History Medical History Graves disease Multinodular thyroid Vitamin D deficiency Surgical History History of 2 sections History of excision of pilonidal cyst Family History Family History Father Hypertension Mother Hypertension Diabetes Social History Social History Alcohol intake: current Alcohol intake frequency: holidays/special occasions only Patient Tobacco Use Status: Current everyday Tobacco user Use of substances other than those prescribed or required for medical reasons: No Advance Directives: No Advance Directives Information Provided: Yes Physical Exam Vital Signs: Vital Signs: Last Vital Signs Temp 98.5 F 03/23/21 17:17 Pulse 77 03/23/21 17:17 Resp 16 03/23/21 17:17 BP 121/77 03/23/21 17:17 Pulse Ox 97 03/23/21 17:17 Body Mass Index 53.2 Const: General: cooperative, healthy appearing, comfortable, no acute distress, well developed, alert, awake and Physically active Orientation/consciousness: oriented to time and patient oriented x3 HENMT: Head: Yes normal to inspection, Yes No palpable skull fracture present, Yes normocephalic, Yes atraumatic, No abrasion, No Acrocyanosis present and No palpable skull fracture Eyes: General: appearance normal, both eyes and all related structures Neck: Neck: Yes normal visual inspection, Yes full ROM, Yes no l ymphadenopathy, Yes no meningeal signs, Yes trachea midline, Yes supple and No tender Chest: Chest palpation & inspection: normal inspection of the chest and normal palpation of entire chest wall Resp: Effort & Inspection: normal respiratory effort and able to speak in complete sentences Auscultation: clear to auscultation bilaterally Cardio: Jugular venous distension: no JVD Heart sounds: S1 normal heart sound present and S2 normal heart sound present GI: Inspection: Yes normal to inspection and No abdominal wall ecchymosis Palpation (GI): Soft to palpation, not firm, nontender, no guarding and not rigid : General: No CVA tenderness and Yes no CVA tenderness Back/Spine/Pelvis: Back: no CVA tenderness, No CVA tenderness and No back tenderness Skin: General skin exam: no rashes or lesions noted and elasticity normal Neuro: General: oriented to time, patient oriented x3, no meningeal signs and CN's II-XI intact bilaterally Cranial nerves: Yes CN's II-XII intact bilaterally Extrem: Other: Lower extremities negative for swelling, pitting edema, calf tenderness. Psych: Appearance: grossly normal, well kempt and not disheveled Course Course Course Narrative: Will order EKG and thyroid levels. Also will do troponin, chest x-ray, and COVID swab. Reevaluation(s) Reevaluation #1: EKG shows sinus tach. Chest x-ray negative for pneumonia Time: 14:09 Reevaluation #2: Patient's COVID swab pending. Patient's D-dimer is 236 which makes a negative. D-dimerUpper normal limit is 278. PERC Score 0. Rest of labs are at baseline normal appearing awaiting for TSH Time: 15:05 Reevaluation #3: TSH came back slightly low 0.16. t4 is 1.05. Patient is not tachycardic on monitor. Patient is not in thyroid storm. Patient would like to eat some food. Patient made aware TSH is low which indicate she is once again back in hyperthyroidism. Patient states she has close follow-up tomorrow and was informed she should talk to her PCP in regards to going back on PTU to treat her hyperthyroidism. Patient already on metoprolol. Patient informed to return to the ED if symptoms return or worsen. Case was discussed wt Dr. Byers who agreeable with plan. Patient given copy of labs especially thyroid levels for follow-up with PCP Time: 18:17 Medical Decision Making [facility] Narrative Medical decision making narrative: Palpitation Lab Data Result diagrams: 03/23/21 15:05 /07/05 15:05 Labs: Lab Results 03/23/21 03/23/21 03/23/21 Range/Units 15:05 15:05 15:05 WBC 8.8 (4.8-10.8) X10*3/uL RBC 4.07 L (4.20-5.50) X10*6/uL Hgb 11.1 L (12.0-16.0) g/dl Hct 35.3 L (37-47) % MCV 86.7 (80-98) fL MCH 27.3 (27.0-33.0) pg MCHC 31.4 (31.0-35.0) g/dl RDW 16.3 H (11.0-16.0) % Plt Count 288 (160-400) X10*3/uL MPV 10.9 (9.4-12.3) fL Immature Gran % (Auto) 0.3 (0.0-0.4) % Neut % (Auto) 65.6 (45-73) % Lymph % (Auto) 21.2 (20-40) % [place] % (Auto) 7.7 (2-11) % Eos % (Auto) 4.6 H (0-4) % Baso % (Auto) 0.6 (0-2) % Lymph # (Auto) 1.9 (1.2-4.9) X10*3/uL [place] # (Auto) 0.7 (0.1-1.2) X10*3/uL Eos # (Auto) 0.4 (0.0-0.4) X10*3/uL Baso # (Auto) 0.1 (0.0-0.2) X10*3/uL Abs Immat Gran (auto) 0.03 (0.00-0.03) X10*3/uL Absolute Neuts (auto) 5.8 (2.0-8.3) X10*3/uL Absolute Nucleated RBC 0.000 (0.0-0.012) X10*3/uL Nucleated RBC % (auto) 0.0 (0.0-0.2) /100WBC PT (10.8-13.0) SEC INR (0.9-1.1) APTT (24.1-38.0) SEC D-Dimer NG/ML Sodium 138 (135-145) mmol/L Potassium 3.6 (3.3-5.1) mmol/L Chloride 100 (96-108) mmol/L Carbon Dioxide 28 (22-29) mmol/L Anion Gap 14 (12-20) BUN 13 (9-16) mg/dL Creatinine 0.71 (0.5-1.4) mg/dL Estim Creat Clear Calc 157.9 Estimated GFR > 60 Random Glucose 105 (60-115) mg/dL Calcium 9.6 D (8.4-10.2) mg/dL Total Bilirubin 0.3 (0.0-1.0) mg/dL AST 27 (5-31) U/L ALT 35 H (0-31) U/L Alkaline Phosphatase 73 (39-117) U/L Troponin I High Sens < 3.5 (<3.5-17.0) ng/L B-Natriuretic Peptide < 10 (<100) pg/mL Total Protein 7.6 (6.5-8.0) g/dL Albumin 3.8 (3.5-5.0) g/dL TSH 0.16 L (0.32-4.0) uIU/mL Free T4 1.06 (0.71-1.85) ng/dL Beta HCG, Quant < 2 mIU/mL Coronavirus (PCR) (Negative) Influenza Type A (PCR) (Negative) Influenza Type B (PCR) (Negative) RSV RNA Qual (PCR) (Negative) 03/23/21 03/23/21 Range/Units 15:05 16:07 WBC (4.8-10.8) X10*3/uL RBC (4.20-5.50) X10*6/uL Hgb (12.0-16.0) g/dl Hct (37-47) % MCV (80-98) fL MCH (27.0-33.0) pg MCHC (31.0-35.0) g/dl RDW (11.0-16.0) % Plt Count (160-400) X10*3/uL MPV (9.4-12.3) fL Immature Gran % (Auto) (0.0-0.4) % Neut % (Auto) (45-73) % Lymph % (Auto) (20-40) % [place] % (Auto) (2-11) % Eos % (Auto) (0-4) % Baso % (Auto) (0-2) % Lymph # (Auto) (1.2-4.9) X10*3/uL [place] # (Auto) (0.1-1.2) X10*3/uL Eos # (Auto) (0.0-0.4) X10*3/uL Baso # (Auto) (0.0-0.2) X10*3/uL Abs Immat Gran (auto) (0.00-0.03) X10*3/uL Absolute Neuts (auto) (2.0-8.3) X10*3/uL Absolute Nucleated RBC (0.0-0.012) X10*3/uL Nucleated RBC % (auto) (0.0-0.2) /100WBC PT 13.7 H (10.8-13.0) SEC INR 1.2 H (0.9-1.1) APTT 27.5 (24.1-38.0) SEC D-Dimer 236 NG/ML Sodium (135-145) mmol/L Potassium (3.3-5.1) mmol/L Chloride (96-108) mmol/L Carbon Dioxide (22-29) mmol/L Anion Gap (12-20) BUN (9-16) mg/dL Creatinine (0.5-1.4) mg/dL Estim Creat Clear Calc Estimated GFR Random Glucose (60-115) mg/dL Calcium (8.4-10.2) mg/dL Total Bilirubin (0.0-1.0) mg/dL AST (5-31) U/L ALT (0-31) U/L Alkaline Phosphatase (39-117) U/L Troponin I High Sens (<3.5-17.0) ng/L B-Natriuretic Peptide (<100) pg/mL Total Protein (6.5-8.0) g/dL Albumin (3.5-5.0) g/dL TSH (0.32-4.0) uIU/mL Free T4 (0.71-1.85) ng/dL Beta HCG, Quant mIU/mL Coronavirus (PCR) NEGATIVE (Negative) Influenza Type A (PCR) NEGATIVE (Negative) Influenza Type B (PCR) NEGATIVE (Negative) RSV RNA Qual (PCR) NEGATIVE (Negative) ECG Data Interpretation: Sinus tachycardia. Ventricular rate 106. Parents were 158. QRS 102. QTC 467. Negative STEMI Discharge Plan Discharge Clinical Impression: Palpitations, Hyperthyroidism Patient Disposition: Home, Self-Care Instructions: Heart Palpitations (ED), Hyperthyroidism (ED) Additional Instructions: Return to the ED immediately for any chest pain, shortness of breath, diaphoresis, extreme weight loss, headache, dizziness, fever, chills, neck pain, worsening palpitations, or any other concerning symptoms. Your TSH level came back low which indicates your probably back into hypothyroidism. Please speak with your PCP tomorrow to see if she will put you back on hyperthyroidism medication. Please give your PCP copy of labs given by nurse. Prescriptions: No Action benzonatate [Tessalon Perles] 100 mg capsule 100 mg PO TID PRN (Reason: cough) Qty: 14 RF: 0 albuterol sulfate 2.5 mg/0.5 mL solution for nebulization 5 mg inhalation Q4H PRN (Reason: shortness of breath or wheezing) Qty: 30 RF: 0 loratadine [Claritin] 10 mg tablet 10 mg PO DAILY Qty: 20 RF: 0 cyclobenzaprine 10 mg tablet 10 mg PO BEDTIME RF: 0 diclofenac sodium 50 mg tablet,delayed release (DR/EC) 50 mg PO BID RF: 0 albuterol sulfate 90 mcg/actuation HFA aerosol inhaler 2 puff PO Q4-6H PRNRF: 0 triamcinolone acetonide 0.025 % cream topical RF: 0 (DME) blood pressure test kit-large Kit See Rx Instructions ea .ROUTE .MEDSUPPLY Qty: 1 RF: 0 ketoconazole 2 % shampoo 1 applic topical 2XW RF: 0 benzonatate 100 mg capsule 100 mg PO Q8H PRN (Reason: cough) RF: 0 (DME) Aerochamber Plus Flow-Vu Spacer See Rx Instructions ea .ROUTE .MEDSUPPLY Qty: 1 RF: 0 Flovent HFA 110 mcg/actuation HFA aerosol inhaler 0 mcg inhalation RF: 0 ibuprofen 800 mg tablet 800 mg PO TID RF: 0 clindamycin HCl 300 mg capsule 300 mg PO BID RF: 0 metoprolol tartrate 50 mg tablet 50 mg PO DAILY RF: 0 Referrals: Thania Padgett MD [Primary Care Provider] - 2 days (Palpitations. Hyperthyroidism. TSH 0.16. T4 1.06. Chest x-ray negative. COVID swab negative. D-dimer negative. Labs are baseline. BNP negative) Stand Alone Forms: Work/School Release Discharge Date/Time: 03/23/21 18:45 Print Language: Bel[place]ian
[2021-03-23 14:40] VITALS: BP 113/77; PULSE 85; RESP 21; O2SAT 96
[2021-03-23 14:43] VITALS: PULSE 85
[2021-03-23] MEDS: 0.9 % Sodium Chloride 1,000 ML 999 ML IV (15:04)
[2021-03-23 15:18] LABS: MANUAL DIFF FLAG NO
[2021-03-23 15:23] LABS: Basophils Absolute Auto 0.1 X10*3/uL (0.0-0.2); Basophils Percent Auto 0.6 % (0-2); Eosinophils Absolute Auto 0.4 X10*3/uL (0.0-0.4); Eosinophils Percent Auto 4.6 % (0-4); Hematocrit 35.3 % (37-47); Hemoglobin 11.1 g/dl (12.0-16.0); Imm Gran Abs Auto 0.03 X10*3/uL (0.00-0.03); Imm Gran Pct Auto 0.3 % (0.0-0.4); Lymphocytes Absolute Auto 1.9 X10*3/uL (1.2-4.9); Lymphocytes Percent Auto 21.2 % (20-40); Mean Corpuscular HGB Conc 31.4 g/dl (31.0-35.0); Mean Corpuscular Hemoglobin 27.3 pg (27.0-33.0); Mean Corpuscular Volume 86.7 fL (80-98); Mean Platelet Volume 10.9 fL (9.4-12.3); Monocytes Absolute Auto 0.7 X10*3/uL (0.1-1.2); Monocytes Percent Auto 7.7 % (2-11); Neutrophils Absolute Auto 5.8 X10*3/uL (2.0-8.3); Neutrophils Percent Auto 65.6 % (45-73); Platelet Count 288 X10*3/uL (160-400); Red Blood Count 4.07 X10*6/uL (4.20-5.50); Red Cell Distribution Width 16.3 % (11.0-16.0); White Blood Count 8.8 X10*3/uL (4.8-10.8)
[2021-03-23 16:09] LABS: B Type Natriuretic Peptide < 10 pg/mL (<100); Troponin-I High Sensitivity < 3.5 ng/L (<3.5-17.0)
[2021-03-23 16:22] LABS: INTERNATIONAL NORM RATIO 1.2 (0.9-1.1); Prothrombin Time 13.7 SEC (10.8-13.0)
[2021-03-23 16:23] LABS: Alanine Aminotransferase 35 U/L (0-31); Albumin Level 3.8 g/dL (3.5-5.0); Alkaline Phosphatase 73 U/L (39-117); Anion Gap 14 (12-20); Aspartate Amino Transferase 27 U/L (5-31); Bilirubin Total 0.3 mg/dL (0.0-1.0); Blood Urea Nitrogen 13 mg/dL (9-16); Calcium 9.6 mg/dL (8.4-10.2); Carbon Dioxide 28 mmol/L (22-29); Chloride 100 mmol/L (96-108); Creatinine Clr Calc Pharmacy 157.9; Estimated Glomerular Filt Rate > 60; Glucose Random 105 mg/dL (60-115); Potassium 3.6 mmol/L (3.3-5.1); Sodium 138 mmol/L (135-145); Total Protein 7.6 g/dL (6.5-8.0)
[2021-03-23 16:25] LABS: Partial Thromboplastin Time 27.5 SEC (24.1-38.0)
[2021-03-23 16:27] LABS: HCG Quantitative < 2 mIU/mL; TSH reflex Free T4 0.16 uIU/mL (0.32-4.0)
[2021-03-23 17:11] LABS: D Dimer 236 NG/ML
[2021-03-23 17:16] LABS: Influenza A PCR NEGATIVE (Negative); Influenza B PCR NEGATIVE (Negative); Resp Syncy Virus RNA Qual PCR NEGATIVE (Negative); SARS COV2 PCR INHOUSE NEGATIVE (Negative)
[2021-03-23 17:17] VITALS: BP 121/77; PULSE 77; RESP 16; TEMP 36.9; O2SAT 97
[2021-03-23 17:30] LABS: Free T4 (Free Thyroxine) 1.06 ng/dL (0.71-1.85)
== END 2021-03-23 18:45 | disposition home or self-care (01) ==
PROVIDERS: Physician Assistant; Emergency Provider Emergency Medicine; PCP Family Medicine
DX: R00.2 Palpitations (principal); E05.90 Thyrotoxicosis, unspecified without thyrotoxic crisis or storm; Z20.822 Contact with and (suspected) exposure to COVID-19; I48.91 Unspecified atrial fibrillation; F17.210 Nicotine dependence, cigarettes, uncomplicated
CPT/HCPCS: 0241U; 36415; 71045; 80053; 83880; 84439; 84443; 84484; 84702; 85025; 85379; 85610; 85730; 93005; 96360; 99284; 99285

== ENCOUNTER → 2021-03-31 11:55 | Outpatient (BNVA) | payer OTHER, SELFPAY | PROVIDERS: PCP Family Medicine; Visit Provider Internal Medicine | CPT/HCPCS: Q3014 ==

== ENCOUNTER 2021-10-28 11:49 | Outpatient (REF) | payer OTHER, SELFPAY ==
[2021-10-28 13:24] LABS: Free T4 (Free Thyroxine) 0.94 ng/dL (0.71-1.85); Thyroid Stimulating Hormone 0.84 uIU/mL (0.32-4.0); Vitamin D 25-OH Total 8.8 ng/mL (>30)
[2021-10-29 11:57] LABS: Triiodothyronine T3 Total 124 ng/dL (76-181)
== END 2021-10-28 11:50 | disposition home or self-care (01) ==
LOC: HO.LAB 11:49
PROVIDERS: PCP Family Medicine; Visit Provider Internal Medicine
DX: E05.00 Thyrotoxicosis with diffuse goiter without thyrotoxic crisis or storm (principal); E04.2 Nontoxic multinodular goiter; E55.9 Vitamin D deficiency, unspecified
CPT/HCPCS: 36415; 82306; 84439; 84443; 84480

== ENCOUNTER → 2021-11-02 12:49 | Outpatient (BNVA) | payer OTHER, SELFPAY | PROVIDERS: PCP Family Medicine; Visit Provider Internal Medicine | DX: E05.00 Thyrotoxicosis with diffuse goiter without thyrotoxic crisis or storm (principal); E55.9 Vitamin D deficiency, unspecified; E04.2 Nontoxic multinodular goiter | CPT/HCPCS: 99212 ==

== ENCOUNTER 2022-01-03 16:07 | Outpatient (REF) | payer OTHER, SELFPAY ==
[2022-01-03 17:37] LABS: Free T4 (Free Thyroxine) 0.98 ng/dL (0.71-1.85); Thyroid Stimulating Hormone 1.42 uIU/mL (0.32-4.0)
[2022-01-04 19:41] LABS: Triiodothyronine T3 Total 116 ng/dL (76-181)
== END 2022-01-03 16:08 | disposition home or self-care (01) ==
LOC: HO.LAB 16:07
PROVIDERS: PCP Family Medicine; Visit Provider Internal Medicine
DX: E05.00 Thyrotoxicosis with diffuse goiter without thyrotoxic crisis or storm (principal); E55.9 Vitamin D deficiency, unspecified
CPT/HCPCS: 36415; 82306; 84439; 84443; 84480

== ENCOUNTER → 2022-02-08 13:37 | Outpatient (BNVA) | payer OTHER, SELFPAY | PROVIDERS: PCP Family Medicine; Visit Provider Internal Medicine | DX: E05.00 Thyrotoxicosis with diffuse goiter without thyrotoxic crisis or storm (principal); E55.9 Vitamin D deficiency, unspecified; E04.2 Nontoxic multinodular goiter | CPT/HCPCS: Q3014 ==

== ENCOUNTER 2023-03-02 14:16 | Outpatient (REF) | payer OTHER, SELFPAY ==
--- NOTE | ~2023-03-02 | US_ITS ---
EXAMINATION: US THYROID CLINICAL INFORMATION: Nontoxic multinodular goiter. COMPARISON: Thyroid ultrasound 02/02/2021 and 05/18/2020. TECHNIQUE: Linear transducer grayscale and color Doppler examination with attention to the region of the thyroid. FINDINGS: SIZE: Measurements of the thyroid lobes and nodules are given in sagittal, anteroposterior and transverse dimensions respectively. Right Thyroid Lobe: 4.2 x 1.6 x 1.5 cm, volume 5.3 mL. Previously 4.5 x 2.0 x 1.2 cm, volume 5.6 mL. Parenchyma: The gland echotexture is heterogeneous. Thyroid vascularity is normal. Left Thyroid Lobe: 4.5 x 1.7 x 1.7 cm, volume 6.8 mL. Previously 4.7 x 1.6 x 1.9 cm, volume 7.5 mL. Parenchyma: The gland echotexture is heterogeneous. Thyroid vascularity is normal. Isthmus: 0.5 cm in maximum AP dimension. Previously 0.6 cm. Estimated total number of nodules greater than or equal to 1 cm: 1. 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 Location: Right isthmus. Size: 1.0 x 0.6 x 0.8 cm, volume 0.23 mL. Previously: 0.9 x 0.5 x 0.7 cm, volume 0.2 mL. Nodule characteristics: Composition: Solid (2). Echogenicity: Hypoechoic (2). Shape: Not taller than wide (0). Margins: Smooth (0). Echogenic Foci: None (0). ACR TI-RADS total points: 4 Previous: 4 ACR TI-RADS category: 4 Previous: 4 Significant change in size (>/= 20% in 2 dimensions and minimal increase of 2 mm or 50% or greater increase in volume): No Change in features: No Change in ACR TI-RADS risk category: No 2. Location: Right isthmus. Size: 0.9 x 0.5 x 0.9 cm, volume 0.2 mL. Previously: Not previously documented, new. Nodule characteristics: Composition: Solid (2). Echogenicity: Isoechoic (1). Shape: Not taller than wide (0). Margins: Smooth (0). Echogenic Foci: None (0). ACR TI-RADS total points: 3 ACR TI-RADS category: 3 3. Location: Left lower pole. Size: 0.7 x 0.4 x 0.6 cm, volume 0.08 mL. Previously: 0.6 x 0.3 x 0.5 cm, volume 0.05 mL. Nodule characteristics: Composition: Solid (2). Echogenicity: Isoechoic (1). Shape: Not taller than wide (0). Margins: Smooth (0). Echogenic Foci: None (0). ACR TI-RADS total points: 3 Previous: 3 ACR TI-RADS category: 3 Previous: 3 Significant change in size (>/= 20% in 2 dimensions and minimal increase of 2 mm or 50% or greater increase in volume): Yes Change in features: No Change in ACR TI-RADS risk category: No NODES: An left cervical level II, a 1.5 x 0.9 1.6 cm reniform lymph node is seen. This shows faint corticomedullary differentiation and a vascular hilum. US/US thyroid IMPRESSION: 1. Bilateral thyroid nodules are seen, as detailed. Recommend continued thyroid ultrasound surveillance. 2. There is heterogeneous thyroid echotexture, consistent with with the provided history of Graves' disease. 3. A mildly enlarged left cervical lymph node is seen. This is a nonspecific finding, which should be managed on a clinical basis. If of continued clinical concern, consider follow-up ultrasound imaging in 3-6 months to ensure stability/regression. ACR TI-RADS RECOMMENDATION REFERENCE: Ultrasound-guided fine-needle aspiration, followup ultrasound, no further follow up. * TR1 (0 point) and TR2 (2 points): No FNA or follow up * TR3 (3 points): FNA if more than or equal to 2.5 cm in maximum dimension, followup ultrasound in 1, 3 and 5 years if 1.5 to 2.4 cm in maximum dimension. * TR4 (4-6 points): FNA if more than or equal to 1.5 cm in maximum dimension, followup ultrasound in 1, 2, 3 and 5 years if 1 to 1.4 cm in maximum dimension. * TR5 (more than or equal to 7 points): FNA if more than or equal to 1 cm in maximum dimension, followup ultrasound every year for 5 years if 0.5 to 0.9 cm in maximum dimension. * TR3, TR4 or TR5 nodules that are below the size threshold for follow up receive no follow up.
[2023-03-02 17:58] LABS: Free T4 (Free Thyroxine) 0.92 ng/dL (0.71-1.85); Thyroid Stimulating Hormone 1.85 uIU/mL (0.32-4.0); Vitamin D 25-OH Total 32.3 ng/mL (>30)
== END 2023-03-02 14:17 | disposition home or self-care (01) ==
LOC: HO.HMGCX 14:16
PROVIDERS: Absent Provider Internal Medicine; PCP Registered Nurse; Visit Provider Internal Medicine
DX: E05.00 Thyrotoxicosis with diffuse goiter without thyrotoxic crisis or storm (principal); E55.9 Vitamin D deficiency, unspecified; E04.2 Nontoxic multinodular goiter
CPT/HCPCS: 36415; 76536; 82306; 84439; 84443

== ENCOUNTER 2023-03-22 16:55 | Emergency (ER) | payer OTHER, SELFPAY ==
--- NOTE | ~2023-03-22 | XR_ITS ---
EXAMINATION: XR KNEE, LEFT CLINICAL INFORMATION: Left knee pain. COMPARISON: None available. TECHNIQUE: Four views of the left knee. FINDINGS: Bones and soft tissues are normal. No fracture or joint effusion. Alignment is anatomic. Joint spaces are well maintained. No abnormal soft tissue calcification. XR/XR knee LT 2V IMPRESSION: Unremarkable left knee.
--- NOTE | ~2023-03-22 | XR_ITS ---
EXAMINATION: XR KNEE, RIGHT CLINICAL INFORMATION: Right knee pain. COMPARISON: None available. TECHNIQUE: Four views of the right knee. FINDINGS: Mild medial femoral-tibial joint space narrowing is seen. There is no acute fracture or dislocation. Possible trace suprapatellar joint effusion. The soft tissues are unremarkable. XR/XR knee RT 2V IMPRESSION: Mild medial femoral-tibial joint space narrowing may be normal for the patient, but could be degenerative in nature suggesting osteoarthritis. Possible trace suprapatellar joint effusion.
[2023-03-22 17:17] VITALS: BP 126/78; PULSE 98; RESP 18; TEMP 36.8; O2SAT 94; BMI 58.2
--- NOTE | 2023-03-22 17:17 | ED.GENADULT ---
HPI - General Adult General Chief complaint: Extremity Injury, Lower Stated complaint: Pain both Knees Time Seen by Provider: 03/22/23 17:42 Source: patient and RN notes reviewed Mode of arrival: ambulatory Limitations: no limitations History of Present Illness HPI narrative: This is a 37-year-old female, with a past medical history of Graves disease, and asthma, presenting to the emergency department with complaints of bilateral knee pain for the last 4 days. Patient reports she has had no recent trauma or injury however woke up 4 days ago and immediately felt pain in her bilateral knees. Patient reports that throughout the day the pain improves as she is moving around. Her telemedicine physician saw her yesterday and gave her Toradol which helped with her symptoms temporarily however her pain persists. Denies any fevers or chills. No other complaints or concerns at time. MD complaint: Bilateral knee pain Onset (ago): day(s) Location: lower extremity Radiation: non-radiation Quality: aching Pain Consistency: constant Relieving factors: none Exacerbating factors: none Associated symptoms: denies other symptoms Treatments prior to arrival: none Related Data Home Medications Medication Instructions Recorded Confirmed albuterol sulfate 90 mcg/actuation 2 puff PO Q4-6H PRN 09/06/20 02/08/22 aerosol inhaler benzonatate 100 mg capsule 100 mg PO Q8H PRN cough 09/06/20 02/08/22 blood pressure test kit-large #1 margo 09/06/20 02/08/22 cyclobenzaprine 10 mg tablet 10 mg PO BEDTIME 09/06/20 02/08/22 diclofenac sodium 50 mg 50 mg PO BID 09/06/20 02/08/22 tablet,delayed release ketoconazole 2 % shampoo 1 applic topical 2XW 09/06/20 02/08/22 triamcinolone acetonide 0.025 % applic topical 09/06/20 02/08/22 topical cream ibuprofen 800 mg tablet 800 mg PO TID 10/14/20 02/08/22 inhalational spacing device #1 ea 10/14/20 02/08/22 metoprolol tartrate 50 mg tablet 50 mg PO DAILY 10/14/20 02/08/22 fluticasone propionate 110 110 mcg inhalation ONCE PRN 03/31/21 02/08/22 mcg/actuation HFA aerosol inhaler metformin 500 mg tablet 500 mg PO DAILY 11/02/21 02/08/22 Previous Rx's Medication Instructions Recorded albuterol sulfate 2.5 mg/0.5 mL 5 mg inhalation Q4H PRN shortness 02/14/21 solution for nebulization of breath or wheezing #30 ea benzonatate 100 mg capsule 100 mg PO TID PRN cough #14 caps 02/14/21 (Annalisemiltonrory Sergo) loratadine 10 mg tablet (Claritin) 10 mg PO DAILY #20 tabs 03/09/21 cholecalciferol (vitamin D3) 1,250 1,250 mcg PO QWEEK 8 weeks #8 caps 11/02/21 mcg (50,000 unit) capsule cholecalciferol (vitamin D3) 50 50 mcg PO DAILY 30 days #30 caps 11/21/22 mcg (2,000 unit) capsule cyclobenzaprine 5 mg tablet 5 mg PO TID PRN muscle spasm #14 03/22/23 tabs ibuprofen 800 mg tablet 800 mg PO Q8H PRN pain #45 tabs 03/22/23 prednisone 20 mg tablet 40 mg PO DAILY #10 tabs 03/22/23 Allergies Allergy/AdvReac Type Severity Reaction Status Date / Time aspirin [ASA] Allergy Unknown HIVES Verified 03/22/23 17:17 levofloxacin [From LEVAQUIN] Allergy Unknown RASH Verified 03/22/23 17:17 penicillin G Allergy Unknown Unknown Verified 03/22/23 17:17 Penicillins [PCN] Allergy Unknown HIVES Verified 02/08/22 13:53 Sulfa (Sulfonamide Allergy Unknown ITCHING Verified 03/22/23 17:17 Antibiotics) [SULFA (SULFONAMIDE ANTIBIOTICS)] Aspir-81 Allergy Unknown Unknown Uncoded 02/08/22 13:53 Sulfa Allergy Unknown Unknown Uncoded 02/08/22 13:53 SURGICAL TAPE Allergy Unknown UNKNOWN Uncoded 02/08/22 13:53 Review of Systems Review of Systems: Constitutional: No Weight loss, No Fever, No Chills ENT/Mouth: No Ear Pain, No Nasal Congestion, No Sinus Pain, No Hoarseness, No sore throat, No Rhinorrhea, No Swallowing Difficulty Cardiovascular: No Chest Pain, No SOB Respiratory: No Cough, No Sputum, No Wheezing Gastrointestinal: No Nausea, No Vomiting, No Diarrhea, No Constipation, No Abdominal pain Genitourinary: No Dysuria, No Urinary Frequency, No Hematuria, No Urinary Incontinence/retention, No Urgency, No Flank Pain Musculoskeletal: + joint pain, No Myalgias, No Joint Swelling Skin: No Skin Lesions, No rash Neuro: No Weakness, No Numbness, No Paresthesias Yes all other systems are reviewed and are negative Constitutional: Constitutional: Reports as per [facility] Past Medical History Medical History Graves disease Multinodular thyroid Vitamin D deficiency Surgical History History of 2 sections History of excision of pilonidal cyst Family History Family History Father Hypertension Mother Hypertension Diabetes Social History Social History Alcohol intake: current Alcohol intake frequency: holidays/special occasions only Patient Tobacco Use Status: Current everyday Tobacco user Advance Directives: No Advance Directives Information Provided: No Physical Exam ED Vital Signs: Vital Signs - 24 hr 03/22/23 17:17 Temperature 98.3 F Pulse Rate 98 Respiratory Rate 18 Blood Pressure 126/78 Pulse Oximetry 94 Oxygen Delivery Method Room Air BMI result Body Mass Index 58.2 Const General: cooperative, comfortable and no acute distress Orientation/consciousness: patient oriented x3 Limitations: no limitations [facility] Head: Yes normal to inspection, Yes normocephalic and Yes atraumatic Ears: hearing grossly normal bilaterally General nose exam: Normal external nose present Face and sinus: Yes normal facial exam Mouth: Normal oral and palatal mucosa present, oropharynx normal and moist mucous membranes Throat: Yes posterior oropharynx normal Eyes General: appearance normal, both eyes and all related structures Eyelids: Yes eyelids normal Conjunctivae: conjunctivae normal Sclerae: sclerae normal Pupils: Equal, round and reactive pupils present EOM: EOMs intact bilaterally Neck Neck: Yes normal visual inspection, Yes full ROM and Yes no lymphadenopathy Lymphatic: no lymphadenopathy noted Chest Chest palpation & inspection: normal inspection of the chest Resp Effort & Inspection: normal respiratory effort and able to speak in complete sentences Auscultation: clear to auscultation bilaterally, no crackles, no rales, no rhonchi and no wheezes Cardio Rate: regular rate Rhythm: regular rhythm Heart sounds: S1 normal heart sound present and S2 normal heart sound present GI Inspection: Yes normal to inspection Skin General skin exam: no rashes or lesions noted Trauma: no lacerations or abrasions Wounds: no wounds Neuro General: patient oriented x3 and moves all extremities Cranial nerves: Yes Equal, round and reactive pupils present Extrem Other: Bilateral knees with no obvious deformities or swelling, limited range of motion secondary to pain. Able to flex and extend however decreased secondary to pain. No erythema, edema noted. Tenderness to palpation along the bilateral patellas, and pain with varus and valgus strain. Unable to perform anterior and posterior drawer test secondary to pain General: Yes normal to inspection Right upper extremity: normal to inspection Left upper extremity: normal to inspection Right lower extremity: normal to inspection Left lower extremity: normal to inspection Course Course Course Narrative: RME- 37-year-old female presents for evaluation of bilateral knee pain. She has chronic issues with back and knees but reports the pain isn't worse over the last few days. She reports ?somatic scan to my house and gave me an injection but that only helped for a few hours. ? Plan for x-rays of the knees. Medical Decision Making Medical Decision Making [facility] Narrative: 37-year-old female with a past medical history of asthma, presenting to the emergency department for bilateral knee pain for the last 4 days. No trauma or injury. On examination patient is diffusely tender throughout her knees, x-rays reviewed with evidence of osteoarthritis. Discussed these results with patient and the importance of continuing to move the knees, rest, ice, and elevation. Also given referral to Orthopedics for follow-up. Discharge on a script for prednisone and ibuprofen. Advised to return with any new or worsening symptoms. Differential Diagnosis Differential Diagnoses: The differential diagnosis associated with the presentation includes Knee strain, contusion, fracture, arthritis Admission/Observation Consideration of admission/observation: Escalation of care including admission/observation considered Lab Data [facility] Lab Attestation statement: I reviewed the patient's lab results. Radiology Impression Discussion of test interpretation with radiology: I have reviewed the radiologist's reading. Radiologist Impression: EXAMINATION: XR KNEE, RIGHT? CLINICAL INFORMATION: Right knee pain.? COMPARISON: None available.? TECHNIQUE: Four views of the right knee. FINDINGS: Mild medial femoral-tibial joint space narrowing is seen. There is no acute fracture or dislocation. Possible trace suprapatellar joint effusion. The soft tissues are unremarkable. XR/XR knee RT 2V IMPRESSION: Mild medial femoral-tibial joint space narrowing may be normal for the patient, but could be degenerative in nature suggesting osteoarthritis. Possible trace suprapatellar joint effusion. ? Dictated By: Simone Hollingsworth MD Signed By: <Electronically signed by Simone Hollingsworth MD in OV> 03/22/23 1801 DD/ 1740 TD/TT:? Quality Supervisor: MARIAN EXAMINATION: XR KNEE, LEFT CLINICAL INFORMATION: Left knee pain.? COMPARISON: None available.? TECHNIQUE: Four views of the left knee. FINDINGS: Bones and soft tissues are normal. No fracture or joint effusion. Alignment is anatomic. Joint spaces are well maintained. No abnormal soft tissue calcification.? XR/XR knee LT 2V IMPRESSION: Unremarkable left knee. ? Dictated By: Simone Hollingsworth MD External Record Review External record reviewed: Inpatient record, Office record, Outpatient record, Prior outpatient labs, Prior outpatient radiology, Primary care record and Outside ED record Discharge Plan Discharge Clinical Impression: Bilateral knee pain Patient Disposition: Home, Self-Care Instructions: Knee Pain (ED) Additional Instructions: Take prescribed medications as directed. Rest, ice, elevation and wearing Edward wraps around your knees can help with pain and swelling. Please be aware that x-ray all can cause drowsiness, do not drink alcohol or drive while taking these medications. Follow-up with orthopedics if your symptoms persist, call to make an appointment. If any new or worsening symptoms occur please return for re-evaluation. Prescriptions: New prednisone 20 mg tablet 40 mg PO DAILY Qty: 10 0RF cyclobenzaprine 5 mg tablet 5 mg PO TID PRN (Reason: muscle spasm) Qty: 14 0RF ibuprofen 800 mg tablet 800 mg PO Q8H PRN (Reason: pain) Qty: 45 0RF No Action cholecalciferol (vitamin D3) 50 mcg (2,000 unit) capsule 50 mcg PO DAILY 30 Days Qty: 30 2RF benzonatate [Tessalon Perles] 100 mg capsule 100 mg PO TID PRN (Reason: cough) Qty: 14 0RF albuterol sulfate 2.5 mg/0.5 mL solution for nebulization 5 mg inhalation Q4H PRN (Reason: shortness of breath or wheezing) Qty: 30 0RF loratadine [Claritin] 10 mg tablet 10 mg PO DAILY Qty: 20 0RF cyclobenzaprine 10 mg tablet 10 mg PO BEDTIME diclofenac sodium 50 mg tablet,delayed release (DR/EC) 50 mg PO BID albuterol sulfate 90 mcg/actuation HFA aerosol inhaler 2 puff PO Q4-6H PRN triamcinolone acetonide 0.025 % cream topical (DME) blood pressure test kit-large Kit See Rx Instructions .ROUTE .MEDSUPPLY Qty: 1 Rx Instructions: As directed ketoconazole 2 % shampoo 1 applic topical 2XW benzonatate 100 mg capsule 100 mg PO Q8H PRN (Reason: cough) (DME) Aerochamber Plus Flow-Vu Spacer See Rx Instructions .ROUTE .MEDSUPPLY Qty: 1 Rx Instructions: As directed ibuprofen 800 mg tablet 800 mg PO TID metoprolol tartrate 50 mg tablet 50 mg PO DAILY fluticasone propionate 110 mcg/actuation HFA aerosol inhaler 110 mcg inhalation ONCE PRN metformin 500 mg tablet 500 mg PO DAILY cholecalciferol (vitamin D3) 1,250 mcg (50,000 unit) capsule 1,250 mcg PO QWEEK 56 Days Qty: 8 0RF Referrals: [facility] [place] [facility] [Provider Group]
== END 2023-03-22 19:44 | disposition home or self-care (01) ==
PROVIDERS: Emergency Provider Internal Medicine
DX: M25.562 Pain in left knee (principal); M25.561 Pain in right knee; F17.200 Nicotine dependence, unspecified, uncomplicated
CPT/HCPCS: 73560; 99282; 99283

== ENCOUNTER 2023-06-04 08:15 | Outpatient (AMB) | payer OTHER, SELFPAY ==
--- NOTE | 2023-06-04 08:16 | A.OFFVIS_ITS ---
Intake Intake Visit Reasons: F/U Grave's Disease Intake Note: Grave's Disease follow up visit. Nuclear Supervising Operator Required: No Allergies aspirin [ASA] Allergy (Unknown, Verified 06/04/23 09:33) HIVES levofloxacin [From LEVAQUIN] Allergy (Unknown, Verified 06/04/23 09:33) RASH penicillin G Allergy (Unknown, Verified 06/04/23 09:33) Unknown Penicillins [PCN] Allergy (Unknown, Verified 06/04/23 09:33) HIVES Sulfa (Sulfonamide Antibiotics) [SULFA (SULFONAMIDE ANTIBIOTICS)] Allergy (Unknown, Verified 06/04/23 09:33) ITCHING Aspir-81 Allergy (Unknown, Uncoded 06/04/23 09:33) Unknown Sulfa Allergy (Unknown, Uncoded 06/04/23 09:33) Unknown SURGICAL TAPE Allergy (Unknown, Uncoded 06/04/23 09:33) UNKNOWN Medication List - Last Reconciled 06/04/23 by Catarina Lerma, DO albuterol sulfate 5 mg inhalation Q4H PRN albuterol sulfate 90 mcg/actuation 2 puffs PO Q4-6H PRN benzonatate (Tessalon Perles) 100 mg PO TID PRN benzonatate 100 mg PO Q8H PRN blood pressure test kit-large As directed cyclobenzaprine 5 mg PO TID PRN cyclobenzaprine 10 mg PO BEDTIME diclofenac sodium 50 mg PO BID fluticasone propionate 110 mcg/actuation 110 mcg inhalation ONCE PRN ibuprofen 800 mg PO Q8H PRN ibuprofen 800 mg PO TID inhalational spacing device As directed ketoconazole 2% 1 appl topical 2XW lamotrigine 25 mg PO DAILY lisinopril-hydrochlorothiazide 20-25 mg 1 tab PO DAILY loratadine (Claritin) 10 mg PO DAILY metformin 500 mg PO DAILY metoprolol tartrate 50 mg PO DAILY omeprazole 20 mg PO DAILY prednisone 40 mg (2 x 20 mg) PO DAILY triamcinolone acetonide 0.025% appl topical HPI HPI Comments History of Present Illness Details 37 YO F with PMHx Hyperthyroidism who is seen in F/U for the same. She was previously managed by Gwendolyn Asher. She initially presented in August of 2018 with symptoms of hyperthyroidism. Labs at that time revealed TSH <0.01 with FT4 1.39 and FT3 4.4. TSI, TPO and TRAB antibodies were all positive. She had a thyroid uptake and scan which was consistent with Grave's disease with diffusely increased uptake of 67.2% at 24 hours. She was started on Methimazole 10 mg PO BID and asked to have labs repeated, but she was subsequently lost to F/U. She was then seen by me, again with labs confirming Thyrotoxicosis. She was started on Methimazole 10 mg PO BID, but was only taking this once per day. She reported many symptoms including fatigue, body aches, odd colored urine after starting this and she was advised to stop it and have labs repeated immediately. She did not have labs done and again was lost to F/U. She then presented to the ED 07/03/19 with multiple medical complaints. She was found to be hypertensive with BP 151/105. TFTs revealed TSH <0.01, TT3 155 and FT4 1.15. She was discharged from the ED and asked to F/U with Endocrinology. She was started again on Methimazole 10 mg PO BID, but again was lost to F/U for months, and was not taking the Methimazole at that time. She represented reporting palpitations and feeling somewhat unwell with poorly controlled hypertension. We repeated labs 05/18/2020 and TSH was 0.53 with FT4 0.71 AND TT3 117.3, WNL. She was thought to be in remission at that time and Methimazole was not resumed. She again was lost to F/U. She then presented to the ED in February 2021 with palpitations. Labs revealed hyperthyroidism again. She was started on Metoprolol 50 mg PO daily and Methimazole 5 mg PO daily. She again was lost to F/U and then called the office in Oct 2021 reporting hypertension which she was concerned was related to her thyroid. TFTs were checked and were found to be WNL. She is seen today in F/U. She did have a thyroid US completed which revealed a multinodular thyroid with prominent lymph nodes. Thyroid US: 03/02/2023 FINDINGS: ? SIZE: Measurements of the thyroid lobes and nodules are given in sagittal, anteroposterior and transverse dimensions respectively. Right Thyroid Lobe: 4.2 x 1.6 x 1.5 cm, volume 5.3 mL. Previously 4.5 x 2.0 x 1.2 cm, volume 5.6 mL. Parenchyma: The gland echotexture is heterogeneous. Thyroid vascularity is normal. Left Thyroid Lobe: 4.5 x 1.7 x 1.7 cm, volume 6.8 mL. Previously 4.7 x 1.6 x 1.9 cm, volume 7.5 mL. Parenchyma: The gland echotexture is heterogeneous. Thyroid vascularity is normal. Isthmus: 0.5 cm in maximum AP dimension. Previously 0.6 cm. Estimated total number of nodules greater than or equal to 1 cm: 1. Powder Shoveler nodules are described as follows: 1.? Location: Right isthmus. ?? ? Size: 1.0 x 0.6 x 0.8 cm, volume 0.23 mL. ?? ? Previously: 0.9 x 0.5 x 0.7 cm, volume 0.2 mL. ?? ? Nodule characteristics: ?? ? Composition: Solid (2). ?? ? Echogenicity: Hypoechoic (2). ?? ? Shape: Not taller than wide (0). ?? ? Margins: Smooth (0). ?? ? Echogenic Foci: None (0). ?? ? ACR TI-RADS total points: 4 Previous: 4 ?? ? ACR TI-RADS category: 4 Previous: 4 ? Significant change in size (>/= 20% in 2 dimensions and minimal increase of 2 mm or 50% or greater increase in volume): No ?? ? Change in features: No ?? ? Change in ACR TI-RADS risk category: No 2.? Location: Right isthmus. ?? ? Size: 0.9 x 0.5 x 0.9 cm, volume 0.2 mL. ?? ? Previously: Not previously documented, new. ?? ? Nodule characteristics: ?? ? Composition: Solid (2). ?? ? Echogenicity: Isoechoic (1). ?? ? Shape: Not taller than wide (0). ?? ? Margins: Smooth (0). ?? ? Echogenic Foci: None (0). ?? ? ACR TI-RADS total points: 3 ?? ? ACR TI-RADS category: 3 ?? ? 3.? Location: Left lower pole. ?? ? Size: 0.7 x 0.4 x 0.6 cm, volume 0.08 mL. ?? ? Previously: 0.6 x 0.3 x 0.5 cm, volume 0.05 mL. ?? ? Nodule characteristics: ?? ? Composition: Solid (2). ?? ? Echogenicity: Isoechoic (1). ?? ? Shape: Not taller than wide (0). ?? ? Margins: Smooth (0). ?? ? Echogenic Foci: None (0). ?? ? ACR TI-RADS total points: 3 Previous: 3 ?? ? ACR TI-RADS category: 3 Previous: 3 ? Significant change in size (>/= 20% in 2 dimensions and minimal increase of 2 mm or 50% or greater increase in volume): Yes ?? ? Change in features: No ?? ? Change in ACR TI-RADS risk category: No NODES: An left cervical level II, a 1.5 x 0.9 1.6 cm reniform lymph node is seen. This shows faint corticomedullary differentiation and a vascular hilum. Labs: Laboratory Tests 03/02/23 14:22 25-OH Vitamin D To jeremy 32.3 TSH 1.85 Free T4 0.92 PFSH Medical History Graves disease Multinodular thyroid Vitamin D deficiency Surgical History History of 2 sections History of excision of pilonidal cyst Family History Father Hypertension Mother Hypertension Diabetes Social History Alcohol intake: current Alcohol intake frequency: holidays/special occasions only Patient Tobacco Use Status: Current everyday Tobacco user Assessment & Plan Assessment & Plan (1) Graves disease: Code(s): E05.00 - Thyrotoxicosis with diffuse goiter without thyrotoxic crisis or storm Plan: Patient with Grave's disease, now in remission. Otherwise she will remain off methimazole and repeat labs in 1 years time. She will call me with any recurrence of symptoms. All of her questions were answered. She is in agreement with this plan of care. I spent 20 minutes in reviewing the record, speaking with the patient and documenting in the medical record, including 5 minutes on the phone with the Patient. (2) Vitamin D deficiency: Code(s): E55.9 - Vitamin D deficiency, unspecified Plan: Vitamin D levels are at goal. Will continue with Vitamin D 2000 IU daily. (3) Multinodular thyroid: Code(s): E04.2 - Nontoxic multinodular goiter Plan: Patient with a multinodular thyroid. She does have 1 nodule measuring 1.0 cm, and a prominent cervical lymph node. I recommend she repeat her US of the thyroid in 3 months time for surveillance and FNA biopsy can be performed at that time. We reviewed I will be leaving the practice and she will be following with with the covering Metal Shaping Machine Operator Lefty Bustamante. I recommend she call and make an appointment in 6 weeks time to be sure her surveillance US is completed timely. Telehealth Telehealth Location of provider rendering services: practice address Location of patient: address on file Patient Identification confirmed using: Name, : Yes Telehealth method: voice only Patient verbally consented to treatment: Yes Patient verbally consented to billing insurance company: Yes Patient informed of any privacy concerns related to visit: Yes Coding Level of Care Code Tele Est Pt Level 3 (44381) Diagnoses Graves disease E05.00 Vitamin D deficiency E55.9 Multinodular thyroid E04.2
== END 2023-06-04 14:40 | disposition home or self-care (01) ==
LOC: HO.ENCR 08:15
PROVIDERS: Visit Provider Internal Medicine
DX: E05.00 Thyrotoxicosis with diffuse goiter without thyrotoxic crisis or storm (principal); E55.9 Vitamin D deficiency, unspecified; E04.2 Nontoxic multinodular goiter
CPT/HCPCS: 99441

== ENCOUNTER → 2023-06-04 08:15 | Outpatient (BNVA) | payer OTHER, SELFPAY | PROVIDERS: Visit Provider Internal Medicine ==

== ENCOUNTER 2023-06-05 14:35 | Outpatient (AMB) | payer OTHER, SELFPAY ==
--- NOTE | 2023-06-05 14:36 | MHC.OFFVIS ---
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 Intake Note: New patient dx palpitation c/o palpitations mostly a few minute a few weeks ago had them off and on all night [employer] Required: No Allergies aspirin [ASA] Allergy (Unknown, Verified 06/04/23 09:33) HIVES levofloxacin [From LEVAQUIN] Allergy (Unknown, Verified 06/04/23 09:33) RASH penicillin G Allergy (Unknown, Verified 06/04/23 09:33) Unknown Penicillins [PCN] Allergy (Unknown, Verified 06/04/23 09:33) HIVES Sulfa (Sulfonamide Antibiotics) [SULFA (SULFONAMIDE ANTIBIOTICS)] Allergy (Unknown, Verified 06/04/23 09:33) ITCHING Aspir-81 Allergy (Unknown, Uncoded 06/04/23 09:33) Unknown Sulfa Allergy (Unknown, Uncoded 06/04/23 09:33) Unknown SURGICAL TAPE Allergy (Unknown, Uncoded 06/04/23 09:33) UNKNOWN Medication List - Last Reconciled 06/05/23 by Maikol Rahman MD albuterol sulfate 5 mg inhalation Q4H PRN albuterol sulfate 90 mcg/actuation 2 puffs PO Q4-6H PRN benzonatate (Tessalon Perles) 100 mg PO TID PRN benzonatate 100 mg PO Q8H PRN blood pressure test kit-large As directed cyclobenzaprine 5 mg PO TID PRN cyclobenzaprine 10 mg PO BEDTIME diclofenac sodium 50 mg PO BID fluticasone propionate 110 mcg/actuation 110 mcg inhalation ONCE PRN ibuprofen 800 mg PO Q8H PRN inhalational spacing device As directed ketoconazole 2% 1 appl topical 2XW lamotrigine 25 mg PO DAILY lisinopril-hydrochlorothiazide 20-25 mg 1 tab PO DAILY loratadine (Claritin) 10 mg PO DAILY metformin 500 mg PO DAILY metoprolol succinate ER 50 mg PO DAILY omeprazole 20 mg PO DAILY triamcinolone acetonide 0.025% appl topical HPI HPI Comments History of Present Illness Details Danielle was referred here because of symptoms of palpitations. She had 1 recent episode that lasted for the whole night, did not seek emergency room. She is very worried about it. She does have history of sleep apnea but does not use her CPAP. She says she woke is claustrophobic because of that. PE she also has prior history of hyperthyroidism. Also history of hypertension, says a blood pressures become difficult to control. She also has bowl and diabetes currently on metformin therapy. She is taking all her medications. However she says that her weight has become an issue. She gets more symptoms of exertional shortness of breath and she says she almost feels lightheaded when she has to breathe. She also has history of osteoarthritis. Associated with this palpitation, she has associated chest pressure. She is worried about her heart as she has family history of atrial fibrillation. She denies any actual syncopal episode. No heart failure symptoms. [facility] Medical History Diabetes Graves disease HTN (hypertension) Morbid obesity Multinodular thyroid Obstructive sleep apnea Vitamin D deficiency Surgical History History of 2 sections History of excision of pilonidal cyst Family History Father Hypertension Mother Hypertension Diabetes Social History Alcohol intake: current Alcohol intake frequency: holidays/special occasions only Patient Tobacco Use Status: Current everyday Tobacco user Review of Systems Const Denies chills, Denies fatigue, Denies fever(s), Denies frequent falls, Denies weakness, Denies weight gain and Denies weight loss Eyes Denies loss of vision ENT Denies dizziness Card Denies chest pain, Denies leg edema, Denies lightheadedness, Denies palpitations, Denies dyspnea, Denies dyspnea on exertion, Denies orthopnea and Denies other (loss of consciousness) Resp Denies cough, Denies dyspnea, Denies dyspnea on exertion and Denies wheezing GI Denies hematochezia and Denies change in stool character Denies urinary frequency and Denies dysuria Musc Denies abnormal gait, Denies muscle weakness, Denies numbness, Denies radiating pain into limb and Denies tingling Skin/Breast Denies nail changes and Denies rash Neuro Denies Abnormal speech present, Denies abnormal gait, Denies dizziness, Denies frequent falls, Denies loss of vision, Denies memory loss, Denies numbness, Denies tingling and Denies weakness Psych Denies depression and Denies memory loss Endo Denies fatigue and Denies palpitations Russ/Lymph Reports easy bruising and Reports other (anemia) Aller/Immun Denies wheezing Physical Exam Vital Signs: Last Vital Signs Pulse 81 06/05/23 14:38 BP 140/84 H 06/05/23 14:38 BMI result Body Mass Index 57.6 Const General: cooperative, comfortable, no acute distress, alert and awake Nutritional Appearance: obese morbidly obese Orientation/consciousness: patient oriented x3 Limitations: no limitations HEENT Head: Yes normocephalic and Yes atraumatic Neck Neck: Yes trachea midline, Yes supple and Yes no JVD Resp Effort & Inspection: normal respiratory effort Auscultation: clear to auscultation bilaterally Cardio Jugular venous distension: no JVD Rate: regular rate Rhythm: regular rhythm Heart sounds: S1 normal heart sound present, S2 normal heart sound present, no click, no gallops, no murmurs and no rubs GI Inspection: Yes obesity Auscultation: normal bowel sounds Skin General skin exam: no rashes or lesions noted Neuro General: patient oriented x3 and no focal motor deficits Speech: No Abnormal speech present Extrem General: Yes no clubbing, cyanosis or edema Psych Appearance: grossly normal Office Procedures EKG Details: EKG shows normal sinus rhythm with incomplete right bundle-branch block [id number], Complete Assessment & Plan Assessment & Plan (1) Atypical chest pain: Code(s): R07.89 - Other chest pain Plan: Patient with symptoms chest pain associated with palpitations. She has multiple risk factors for obstructive coronary artery disease. Would suggest her to undergo a vasodilating myocardial perfusion imaging as she cannot exercise. Also suggest echocardiogram to evaluate LV systolic and diastolic function to evaluate for RV size and systolic function as well as pulmonary hypertension. These tests will be scheduled in near future. (2) Palpitations: Code(s): R00.2 - Palpitations Plan: Palpitations, highly suggestive atrial fibrillation. She has family history of atrial fibrillation as well as significant risk factors for atrial fibrillation including untreated sleep apnea, morbid obesity as well as underlying hypertension diabetes. This needs to be diagnose as she is at risk for thromboembolic complications related to atrial fibrillation. Will suggest a 30 day event monitor for the same. However she needs aggressive risk factor modification. We discussed about aggressive weight loss program. She is interested in bariatric surgical program and have advised her to follow-up with the educational seminar. Also suggest to participate in aggressive blood pressure control. Advised to monitor blood pressure at home maintain a log. Also importance of CPAP therapy was discussed with her. Will follow up in the clinic in 2 months time after testing. Thank you for allowing me to partake in the care Coding Level of Care Code New Pt Level 4 (36172) Diagnoses Atypical chest pain R07.89 Palpitations R00.2 CPT Codes EKG - CPT: 98620-[id number], Complete ([id number])
[2023-06-05 14:38] VITALS: BP 140/84; PULSE 81; BMI 57.6
== END 2023-06-05 15:07 | disposition home or self-care (01) ==
PROVIDERS: PCP Registered Nurse; Referring Provider Registered Nurse; Visit Provider Internal Medicine Cardiovascular Disease
DX: R07.89 Other chest pain (principal); R00.2 Palpitations
CPT/HCPCS: 93010; 99204

== ENCOUNTER → 2023-06-05 14:35 | Outpatient (BNVA) | payer OTHER, SELFPAY | PROVIDERS: PCP Registered Nurse; Referring Provider Registered Nurse; Visit Provider Internal Medicine Cardiovascular Disease | DX: R00.2 Palpitations (principal); R07.89 Other chest pain | CPT/HCPCS: 93005; 99202 ==

== ENCOUNTER → 2023-06-12 14:18 | Outpatient (BNVA) | payer OTHER, SELFPAY | PROVIDERS: PCP Registered Nurse; Visit Provider Physician Assistant ==

== ENCOUNTER 2023-06-21 14:26 | Outpatient (REF) | payer OTHER, SELFPAY ==
--- NOTE | 2023-06-21 14:29 | EMG_ITS ---
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 Nerve Conduction Studies Anti Sensory Summary Table ?Stim Site NR Onset (ms) Norm Onset (ms) Peak (ms) Norm Peak (ms) O-P Amp (?V) Norm O-P Amp Site1 Site2 Delta-0 (ms) Dist (cm) Etienne (m/s) Norm Etienne (m/s) Left Sural Anti Sensory (Lat Mall) Calf ? 1.1 1.5 <4.0 15.6 >5.0 Calf Lat Mall 1.1 14.0 127 Right Sural Anti Sensory (Lat Mall) Calf ? 2.7 3.2 <4.0 1.5 >5.0 Calf Lat Mall 2.7 14.0 52 Motor Summary Table ?Stim Site NR Onset (ms) Norm Onset (ms) O-P Amp (mV) Norm O-P Amp iAmp (mV) Amp (1st) (%) Site1 Site2 Delta-0 (ms) Dist (cm) Etienne (m/s) Norm Etienne (m/s) Right Peroneal Motor (Ext Dig Brev) Ankle ? 3.8 <4.0 3.7 >2.5 4.8 100.0 Ankle Ext Dig Brev 3.8 0.0 B Fib ? 10.5 2.7 3.4 73.0 B Fib Ankle 6.7 33.0 49 >40 Poplt ? 11.5 3.6 4.4 97.3 Poplt B Fib 1.0 5.0 50 >40 Left Tibial Motor (Abd Rodriguez Brev) Ankle ? 4.4 <5 2.8 >2.5 3.7 100.0 Ankle Abd Rodriguez Brev 4.4 0.0 Knee ? 12.6 0.5 0.6 17.9 Knee Ankle 8.2 44.0 54 >40 Right Tibial Motor (Abd Rodriguez Brev) Ankle ? 5.0 <5 3.0 >2.5 4.5 100.0 Ankle Abd Rodriguez Brev 5.0 0.0 Knee ? 13.7 0.2 0.3 6.7 Knee Ankle 8.7 47.0 54 >40 EMG ?Side Muscle Nerve Root Ins Act Fibs Psw Amp Dur Poly Recrt Int Pat Comment Right AbdHallucis MedPlantar S1-2 Nml Nml Nml Nml Nml 0 Nml Complete Right AntTibialis Dp Br Peron L4-5 Nml Nml Nml Nml Nml 0 Nml Complete Right PostTibialis Tibial L5, S1 Nml Nml Nml Nml Nml 0 Nml Complete Right MedGastroc Tibial S1-2 Nml Nml Nml Nml Nml 0 Nml Complete Right VastusMed Femoral L2-4 Nml Nml Nml Nml Nml 0 Nml Complete Left AbdHallucis MedPlantar S1-2 Nml Nml Nml Nml Nml 0 Nml Complete Left AntTibialis Dp Br Peron L4-5 Nml Nml Nml Nml Nml 0 Nml Complete Left PostTibialis Tibial L5, S1 Nml Nml Nml Nml Nml 0 Nml Complete Left MedGastroc Tibial S1-2 Nml Nml Nml Nml Nml 0 Nml Complete Left VastusMed Femoral L2-4 Nml Nml Nml Nml Nml 0 Nml Complete FINDINGS: All motor and sensory nerves tested showed normal latencies, amplitudes and conduction velocities. Tibial proximal amplitudes small which I attribute to technical difficulties and patient habitus. Concentric needle EMG was performed in selected muscles of the bilateral lower extremity the. Study did not reveal signs of electric abnormalities as shown in the table below. IMPRESSION: 1. This is normal study. 2. There is no electrodiagnostic evidence for peroneal neuropathy, tibial neuropathy, lumbosacral plexopathy, lumbar radiculopathy, or peripheral neuropathy. Thank you for your kind referral. Debby Becker MD, DAYANA Board Certified, [place] [employer] and [employer] (ABPMR) Board Certified, [place] [employer] Electro[employer] (ABEM) CODIN 93316 x 2 MTDD
== END 2023-06-21 14:27 | disposition home or self-care (01) ==
LOC: HO.NEURO 14:26
PROVIDERS: PCP Registered Nurse; Visit Provider Registered Nurse
DX: R20.2 Paresthesia of skin (principal); R20.0 Anesthesia of skin
CPT/HCPCS: 95886; 95909

== ENCOUNTER → 2023-06-21 14:29 | Outpatient (BNV) | payer OTHER, SELFPAY | PROVIDERS: PCP Registered Nurse; Visit Provider Physical Medicine & Rehabilitation | DX: M79.604 Pain in right leg (principal); M79.605 Pain in left leg | CPT/HCPCS: 95886; 95909 ==

== ENCOUNTER 2023-06-26 14:16 | Outpatient (AMB) | payer OTHER, SELFPAY ==
[2023-06-26 14:21] VITALS: BMI 55.3
--- NOTE | 2023-06-26 14:21 | MHC.OFFVIS ---
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 The patient describes her back pain as sharp and severe in nature, 10/10. Her back pain does radiate down the posterior aspects of both of her legs. Her back pain has gotten worse over the last few years in spite of continued non operative treatments. She has done physical therapy for 12 weeks over the last 6 months which aggravated her pain. She has also tried Tylenol and anti-inflammatory medicines which gave her minimal relief. She also reports weakness in both of her legs. Allergies aspirin [ASA] Allergy (Unknown, Verified 06/26/23 14:31) HIVES levofloxacin [From LEVAQUIN] Allergy (Unknown, Verified 06/26/23 14:31) RASH penicillin G Allergy (Unknown, Verified 06/26/23 14:31) Unknown Penicillins [PCN] Allergy (Unknown, Verified 06/26/23 14:31) HIVES Sulfa (Sulfonamide Antibiotics) [SULFA (SULFONAMIDE ANTIBIOTICS)] Allergy (Unknown, Verified 06/26/23 14:31) ITCHING Aspir-81 Allergy (Unknown, Uncoded 06/26/23 14:31) Unknown Sulfa Allergy (Unknown, Uncoded 06/26/23 14:31) Unknown SURGICAL TAPE Allergy (Unknown, Uncoded 06/26/23 14:31) UNKNOWN Medication List - Last Reconciled 06/26/23 by Jessee Rodriges MD albuterol sulfate 5 mg inhalation Q4H PRN albuterol sulfate 90 mcg/actuation 2 puffs PO Q4-6H PRN benzonatate (Tessalon Perles) 100 mg PO TID PRN benzonatate 100 mg PO Q8H PRN blood pressure test kit-large As directed cyclobenzaprine 5 mg PO TID PRN cyclobenzaprine 10 mg PO BEDTIME diclofenac sodium 50 mg PO BID fluticasone propionate 110 mcg/actuation 110 mcg inhalation ONCE PRN ibuprofen 800 mg PO Q8H PRN inhalational spacing device As directed ketoconazole 2% 1 appl topical 2XW lamotrigine 25 mg PO DAILY lisinopril-hydrochlorothiazide 20-25 mg 1 tab PO DAILY loratadine (Claritin) 10 mg PO DAILY metformin 500 mg PO DAILY methylprednisolone (Medrol (Jacoby)) PO PER PKG DIR metoprolol succinate ER 50 mg PO DAILY omeprazole 20 mg PO DAILY triamcinolone acetonide 0.025% appl topical PFSH Medical History Diabetes Graves disease HTN (hypertension) Morbid obesity Multinodular thyroid Obstructive sleep apnea Vitamin D deficiency Surgical History (Reviewed 06/26/23 @ 14:31 by Sofiya Brown [facility]) History of excision of pilonidal cyst History of 2 sections Family History Father Hypertension Mother Hypertension Diabetes Social History Alcohol intake: current Alcohol intake frequency: holidays/special occasions only Patient Tobacco Use Status: Current everyday Tobacco user Physical Exam Vital Signs: BMI result Body Mass Index 55.3 Const Other: Well-nourished well-developed very friendly female awake alert and oriented x3 in no acute distress Back/Spine/Pelvis Other: Low back examination shows bilateral paraspinal muscle tenderness, pain with range of motion, positive straight leg raise test bilaterally at 70 degrees, 4/5 strength with testing of her bilateral hip flexors and knee extensors Extrem Other: Bilateral lower extremity examination shows good capillary refill, no skin lesions noted, normal sensation light touch Bilateral knee examination shows minimal effusions, mild crepitus with range of motion, tenderness along her medial joint lines, positive Patricia's test, no instability Results Reviewed Results Reviewed: X-rays of the patient's bilateral knees show mild diffuse joint space narrowing, no acute bony abnormalities Assessment & Plan Assessment & Plan (1) Bilateral knee pain: Code(s): M25.561 - Pain in right knee; M25.562 - Pain in left knee Plan: Ms. Alamo presents with bilateral knee pains and mechanical symptoms due to early degenerative joint disease as well as possible tearing of her medial menisci. She also has low back pain which radiates into both of her legs possibly due to a disc herniation or lumbar stenosis. Thus, I will send the patient for an MRI of her lumbar spine for further evaluation. I will see her back once the MRI is completed. She will contact me prior to that time should her symptoms worsen in any way. I did give her a prescription for a Medrol Dosepak to help with her pain in the meantime. Feel free to call me at any time should questions regarding her orthopedic management arise. Thank you very much for asking me to see this very friendly patient. I spent 22 minutes in reviewing the patient's records and imaging studies, seeing the patient and documenting in the medical record. (2) Low back pain: Code(s): M54.50 - Low back pain, unspecified Medications: New methylprednisolone (Medrol (Jacoby)) PO PER PKG DIR 21 ea 0RF Coding Level of Care Code New Pt Level 2 (91589) Diagnoses Bilateral knee pain M25.561; M25.562 Low back pain M54.50
== END 2023-06-26 14:48 | disposition home or self-care (01) ==
PROVIDERS: Visit Provider Orthopaedic Surgery
DX: M25.561 Pain in right knee (principal); M25.562 Pain in left knee; M54.50 Low back pain, unspecified
CPT/HCPCS: 99202

== ENCOUNTER → 2023-06-26 14:16 | Outpatient (BNVA) | payer OTHER, SELFPAY | PROVIDERS: Visit Provider Orthopaedic Surgery | DX: M17.0 Bilateral primary osteoarthritis of knee (principal); M54.50 Low back pain, unspecified | CPT/HCPCS: 99202 ==

== ENCOUNTER 2023-08-14 14:39 | Outpatient (REF) | payer OTHER, SELFPAY ==
[2023-08-14 15:21] LABS: MANUAL DIFF FLAG NO
[2023-08-14 15:50] LABS: Basophils Absolute Auto 0.1 X10*3/uL (0.0-0.2); Basophils Percent Auto 0.6 % (0-2); Eosinophils Absolute Auto 0.3 X10*3/uL (0.0-0.4); Eosinophils Percent Auto 2.6 % (0-4); Hematocrit 36.3 % (37.0-47.0); Hemoglobin 11.5 g/dl (12.0-16.0); Imm Gran Abs Auto 0.06 X10*3/uL (0.00-0.03); Imm Gran Pct Auto 0.5 % (0.0-0.4); Lymphocytes Absolute Auto 2.2 X10*3/uL (1.2-4.9); Lymphocytes Percent Auto 20.1 % (20-40); Mean Corpuscular HGB Conc 31.7 g/dl (31.0-35.0); Mean Corpuscular Hemoglobin 29.3 pg (27.0-33.0); Mean Corpuscular Volume 92.4 fL (80.0-98.0); Monocytes Absolute Auto 0.5 X10*3/uL (0.1-1.2); Monocytes Percent Auto 4.1 % (2-11); Neutrophils Absolute Auto 7.9 x10*3/uL (2.0-8.3); Neutrophils Percent Auto 72.1 % (45-73); Platelet Count 257 X10*3/uL (160-400); Red Blood Count 3.93 X10*6/uL (4.20-5.50); Red Cell Distribution Width 16.1 % (11.0-16.0); White Blood Count 10.9 X10*3/uL (4.8-10.8)
[2023-08-14 15:55] LABS: Estimated Average Glucose 131 mg/dL; Hemoglobin A1c % 6.2 % (<6.0)
[2023-08-14 16:07] LABS: Alanine Aminotransferase 24 U/L (0-31); Albumin Level 3.8 g/dL (3.5-5.0); Alkaline Phosphatase 62 U/L (39-117); Anion Gap 15 (12-20); Aspartate Amino Transferase 39 U/L (5-31); Bilirubin Total 0.4 mg/dL (0.0-1.0); Blood Urea Nitrogen 10 mg/dL (9-16); Calcium 9.7 mg/dL (8.4-10.2); Carbon Dioxide 25 mmol/L (22-29); Chloride 102 mmol/L (96-108); Cholesterol 171 mg/dL (<200); Estimated Glomerular Filt Rate > 60; Glucose Random 116 mg/dL (60-115); HDL Cholesterol 46 mg/dL (>40); LDL Cholesterol Calculated 93 mg/dL (<100); Potassium 3.8 mmol/L (3.3-5.1); Sodium 138 mmol/L (135-145); Triglycerides 161 mg/dL (<150)
[2023-08-14 16:24] LABS: Thyroid Stimulating Hormone 2.04 uIU/mL (0.32-4.0)
== END 2023-08-14 14:40 | disposition home or self-care (01) ==
LOC: HO.LAB 14:39
PROVIDERS: PCP Internal Medicine; Visit Provider Internal Medicine
DX: Z00.01 Encounter for general adult medical examination with abnormal findings (principal); E66.01 Morbid (severe) obesity due to excess calories; F31.9 Bipolar disorder, unspecified; G47.33 Obstructive sleep apnea (adult) (pediatric); I10 Essential (primary) hypertension; J45.909 Unspecified asthma, uncomplicated; M17.0 Bilateral primary osteoarthritis of knee; M54.50 Low back pain, unspecified; R05.9 Cough, unspecified; Z72.0 Tobacco use; R73.01 Impaired fasting glucose
CPT/HCPCS: 36415; 80053; 80061; 83036; 84443; 85025

== ENCOUNTER 2023-08-16 12:44 | Outpatient (AMB) | payer OTHER, SELFPAY ==
--- NOTE | 2023-08-16 12:53 | A.OFFVIS_ITS ---
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 Allergies aspirin [ASA] Allergy (Unknown, Verified 08/16/23 12:59) HIVES levofloxacin [From LEVAQUIN] Allergy (Unknown, Verified 08/16/23 12:59) RASH penicillin G Allergy (Unknown, Verified 08/16/23 12:59) Unknown Penicillins [PCN] Allergy (Unknown, Verified 08/16/23 12:59) HIVES Sulfa (Sulfonamide Antibiotics) [SULFA (SULFONAMIDE ANTIBIOTICS)] Allergy (Unknown, Verified 08/16/23 12:59) ITCHING Aspir-81 Allergy (Unknown, Uncoded 08/16/23 12:59) Unknown Sulfa Allergy (Unknown, Uncoded 08/16/23 12:59) Unknown SURGICAL TAPE Allergy (Unknown, Uncoded 08/16/23 12:59) UNKNOWN HPI HPI Comments History of Present Illness Details Intake Template This is a 38 year old woman who is accompanied by her adult daughter here to start SWL program with SWL classes. Her goal is to try to improve her health given her obesity related issues of hypertension, obstructive sleep apnea, palpitations that a being worked up by the principal software architect and possible diabetes being assessed by her PCP.? She reports first being concerned about her weight after she started having shoulder in at age 17. Patient notes that she was comfortable in her 20s when she weight around 230-240 lb. However, she notes that she is continued to gain weight and is now at the heaviest of her adult life at 346.0 lb/BMI 55.0 .? She has tried multiple methods of weight loss including fad diets, portion control, OTC diet supplements without permanent results. She lives with her 4 children. 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 She expressed concerns regarding financial cost regarding any type of food supplements and will check into what is covered by her insurance/food stamps before committing. Insurance: ____Medicare ? Bariatric surgery coverage: Y? She is disabled & due to fatigue/somnolence with recently diagnosed obstructive sleep apnea and problems with her CPAP, she frequently naps through the day and does not have restorative sleep. She notes that she had a sleep study done at [facility] about 6 months ago and was sent a machine but has had ongoing problems and states today that she has had no follow-up with [facility]. She is a current smoker taking 6-8 cigarettes per day Intolerance of dairy/lactose:?? Y?she doesn't drink milk Gluten Sensitivity:? N? Celiac? ? N PMH: BRYAN (CPAP prescribed), Thyroid issues, she is being evaluated for palpitations as well as possible DM by her PCP, audieradenitis PSH: tubal, C/S, pilonidal She wakes at:?6:30?bed at: midnight Breakfast:?skips? snack: Lunch:??skips?snack: she has a snack of sandwich or soup 1-2pm Dinner:???6pm rice, pasta, beans, meat? snack: candy, cookies, sweets before bed After dinner: denies snacking Other snacks: sweets: candy, cookies Liquids: recently quit regular soda; +Koolaid & SSBs, sweet iced tea Alcohol intake: ???nil? nicotine: smoking? marijuana:???denies? drugs:???denies? caffeine: iced tea & occ coffee Exercise: none, has a treadmill with incline ability at home Last mammogram: this month is pending Last pap smear: per PCP control method: tubal Colonoscopy: pt reports change in BM/diarrhea not d/w PCP; denies FH of GI malignancy DEVONTE: 10 ESS: 21 in spite of CPAP GERD: 25 QOL: 147 [facility] Medical History (Updated 08/16/23 @ 14:10 by Jeffrey Fernandez MD, FACS, FASS) Diabetes Obstructive sleep apnea Morbid obesity HTN (hypertension) Vitamin D deficiency Multinodular thyroid Graves disease Surgical History History of excision of pilonidal cyst History of 2 sections Family History Father Hypertension Mother Hypertension Diabetes Social History Alcohol intake: current Alcohol intake frequency: holidays/special occasions only Patient Tobacco Use Status: Current everyday Tobacco user Review of Systems Const All systems reviewed & are unremarkable except as noted in HPI and below Reports as per HPI Physical Exam The patient is non-toxic & in good spirits NC/AT, PERRLA, EOMI Mood, affect & judgment all appear appropriate Sclera anicteric conjunctiva pink and moist Oropharynx is clear with no aphthous ulcers, Mallampati class 4, mucous membranes moist Neck is supple with no masses, adenopathy or bruits Thyroid is nontender and free of dominant masses Heart is regular, normal S1-S2 no rubs or murmurs Lungs are clear and equal anteriorly with no audible wheezing, rubs or dullness to percussion No CVA tenderness present Abdomen is obese with no demonstrable hernias. No HSM, rebound, rigidity, guarding, masses or bruits are present. Rectal exam is deferred Skin has good turgor and is free of rashes Extremities free of cyanosis clubbing edema Results Reviewed Results Reviewed: labs 08/14/23 Hb 11.5, Plts 257K, wbc 10.9 HbA1C 6.2 AST elevated at 39, o/w LFTs wnl TAGs elevated at 161 Martine 171 TSH 2.04 BUN 10, Cr 0.76 Diagnostic imaging pending Assessment & Plan Assessment & Plan (1) BMI 50.0-59.9, adult: Code(s): Z68.43 - Body mass index [BMI] 50.0-59.9, adult (2) HTN (hypertension): Code(s): I10 - Essential (primary) hypertension (3) Vitamin D deficiency: Code(s): E55.9 - Vitamin D deficiency, unspecified (4) Graves disease: Code(s): E05.00 - Thyrotoxicosis with diffuse goiter without thyrotoxic crisis or storm (5) Anemia: Code(s): D64.9 - Anemia, unspecified (6) DMII (diabetes mellitus, type 2): Code(s): E11.9 - Type 2 diabetes mellitus without complications (7) Obstructive sleep apnea: Code(s): G47.33 - Obstructive sleep apnea (adult) (pediatric) (8) Diabetes: Code(s): E11.9 - Type 2 diabetes mellitus without complications (9) Nicotine use: Code(s): Z72.0 - Tobacco use Plan The patient is interested in pursuing surgical intervention regarding her obesity and we reviewed normal anatomy, physiology and options including gastric bypass and sleeve gastrectomy. The patient is interested in a laparoscopic sleeve gastrectomy. The inherent risks of weight regain if maladaptive eating and sedentary behavior persist were discussed and apparently understood. In addition, the inherent risks of bleeding, need for reoperation or blood transfusion, risk of DVT and fatal PE were all discussed. Patient seems to understand and requested that she would like to check in to protein supplement options. She was given teaching papers regarding diet, scale options, and the importance of communicating with Cardiology was working her up for palpitations. Patient has an upcoming echo and other cardiac tests pending Patient is also granted permission to communicate with her PCP regarding her diarrhea, changing bowel habit and anemia identified and the should be discussed with the patient's PCP since this will need evaluation. Patient believes that her sleep apnea testing was done at [facility] sleep medicine and she reports an [place] Sleepiness Scale of 21 in spite of CPAP being ordered. She is granted permission for us to communicate with her PCP to obtain the name of provider's treating her obstructive sleep apnea since this will need to be addressed. The importance of nicotine cessation to qualify for bariatric surgery, the importance of 10% weight loss which represents approximately 35 lb for the patient was all discussed and apparently understood. She seemed understand her options and will come back to see me to review labs in 3 weeks for 45 minute visit. At that point, after she has reviewed protein supplement options regarding her fixed income, we will address the meal plan. Orders: Orders Insulin Today D64.9 - Anemia, unspecified, E11.9 - Type 2 diabetes mellitus without complications, E55.9 - Vitamin D deficiency, unspecified, G47.33 - Obstructive sleep apnea (adult) (pediatric), I10 - Essential (primary) hypertension, Z68.43 - Body mass index [BMI] 50.0-59.9, adult, Z72.0 - Tobacco use Zinc Today D64.9 - Anemia, unspecified, E11.9 - Type 2 diabetes mellitus without complications, E55.9 - Vitamin D deficiency, unspecified, G47.33 - Obstructive sleep apnea (adult) (pediatric), I10 - Essential (primary) hypertension, Z68.43 - Body mass index [BMI] 50.0-59.9, adult, Z72.0 - Tobacco use Vitamin A Today D64.9 - Anemia, unspecified, E11.9 - Type 2 diabetes mellitus without complications, E55.9 - Vitamin D deficiency, unspecified, G47.33 - Obstructive sleep apnea (adult) (pediatric), I10 - Essential (primary) hypertension, Z68.43 - Body mass index [BMI] 50.0-59.9, adult, Z72.0 - Tobacco use C Reactive Protein Today D64.9 - Anemia, unspecified, E11.9 - Type 2 diabetes mellitus without complications, E55.9 - Vitamin D deficiency, unspecified, G47 .33 - Obstructive sleep apnea (adult) (pediatric), I10 - Essential (primary) hypertension, Z68.43 - Body mass index [BMI] 50.0-59.9, adult, Z72.0 - Tobacco use Ferritin Today D64.9 - Anemia, unspecified, E11.9 - Type 2 diabetes mellitus without complications, E55.9 - Vitamin D deficiency, unspecified, G47.33 - Obstructive sleep apnea (adult) (pediatric), I10 - Essential (primary) hypertension, Z68.43 - Body mass index [BMI] 50.0-59.9, adult, Z72.0 - Tobacco use PTHI Today D64.9 - Anemia, unspecified, E11.9 - Type 2 diabetes mellitus without complications, E55.9 - Vitamin D deficiency, unspecified, G47.33 - Obstructive sleep apnea (adult) (pediatric), I10 - Essential (primary) hypertension, Z68.43 - Body mass index [BMI] 50.0-59.9, adult, Z72.0 - Tobacco use H Pylori Breath Test Today D64.9 - Anemia, unspecified, E11.9 - Type 2 diabetes mellitus without complications, E55.9 - Vitamin D deficiency, unspecified, G47.33 - Obstructive sleep apnea (adult) (pediatric), I10 - Essential (primary) hypertension, Z68.43 - Body mass index [BMI] 50.0-59.9, adult, Z72.0 - Tobacco use Vitamin D 25-OH Total Today D64.9 - Anemia, unspecified, E11.9 - Type 2 diabetes mellitus without complications, E55.9 - Vitamin D deficiency, unspecified, G47.33 - Obstructive sleep apnea (adult) (pediatric), I10 - Essential (primary) hypertension, Z68.43 - Body mass index [BMI] 50.0-59.9, adult, Z72.0 - Tobacco use Lipid Panel Today D64.9 - Anemia, unspecified, E11.9 - Type 2 diabetes mellitus without complications, E55.9 - Vitamin D deficiency, unspecified, G47.33 - Obstructive sleep apnea (adult) (pediatric), I10 - Essential (primary) hypertension, Z68.43 - Body mass index [BMI] 50.0-59.9, adult, Z72.0 - Tobacco use IRON PROFILE Today D64.9 - Anemia, unspecified, E11.9 - Type 2 diabetes mellitus without complications, E55.9 - Vitamin D deficiency, unspecified, G47.33 - Obstructive sleep apnea (adult) (pediatric), I10 - Essential (primary) hypertension, Z68.43 - Body mass index [BMI] 50.0-59.9, adult, Z72.0 - Tobacco use Complete Blood Count Auto Diff Today D64.9 - Anemia, unspecified, E11.9 - Type 2 diabetes mellitus without complications, E55.9 - Vitamin D deficiency, unspecified, G47.33 - Obstructive sleep apnea (adult) (pediatric), I10 - Essential (primary) hypertension, Z68.43 - Body mass index [BMI] 50.0-59.9, adult, Z72.0 - Tobacco use Vitamin B12 and Folate Today D64.9 - Anemia, unspecified, E11.9 - Type 2 diabetes mellitus without complications, E55.9 - Vitamin D deficiency, unspecified, G47.33 - Obstructive sleep apnea (adult) (pediatric), I10 - Essential (primary) hypertension, Z68.43 - Body mass index [BMI] 50.0-59.9, adult, Z72.0 - Tobacco use Comprehensive Met. Panel Today D64.9 - Anemia, unspecified, E11.9 - Type 2 diabetes mellitus without complications, E55.9 - Vitamin D deficiency, unspecified, G47.33 - Obstructive sleep apnea (adult) (pediatric), I10 - Essential (primary) hypertension, Z68.43 - Body mass index [BMI] 50.0-59.9, adult, Z72.0 - Tobacco use Vitamin B1 Today D64.9 - Anemia, unspecified, E11.9 - Type 2 diabetes mellitus without complications, E55.9 - Vitamin D deficiency, unspecified, G47.33 - Obstructive sleep apnea (adult) (pediatric), I10 - Essential (primary) hypertension, Z68.43 - Body mass index [BMI] 50.0-59.9, adult, Z72.0 - Tobacco use TSH reflex Free T4 Today D64.9 - Anemia, unspecified, E11.9 - Type 2 diabetes mellitus without complications, E55.9 - Vitamin D deficiency, unspecified, G47.33 - Obstructive sleep apnea (adult) (pediatric), I10 - Essential (primary) hypertension, Z68.43 - Body mass index [BMI] 50.0-59.9, adult, Z72.0 - Tobacco use Hemoglobin A1c Today D64.9 - Anemia, unspecified, E11.9 - Type 2 diabetes mellitus without complications, E55.9 - Vitamin D deficiency, unspecified, G47.33 - Obstructive sleep apnea (adult) (pediatric), I10 - Essential (primary) hypertension, Z68.43 - Body mass index [BMI] 50.0-59.9, adult, Z72.0 - Tobacco use US abdomen comp w elastography Today D64.9 - Anemia, unspecified, E11.9 - Type 2 diabetes mellitus without complications, E55.9 - Vitamin D deficiency, unspecified, G47.33 - Obstructive sleep apnea (adult) (pediatric), I10 - Essential (primary) hypertension, Z68.43 - Body mass index [BMI] 50.0-59.9, adult, Z72.0 - Tobacco use XR chest 2V Today D64.9 - Anemia, unspecified, E11.9 - Type 2 diabetes mellitus without complications, E55.9 - Vitamin D deficiency, unspecified, G47.33 - Obstructive sleep apnea (adult) (pediatric), I10 - Essential (primary) hypertension, Z68.43 - Body mass index [BMI] 50.0-59.9, adult, Z72.0 - Tobacco use ECG 12 lead EKG Today D64.9 - Anemia, unspecified, E11.9 - Type 2 diabetes mellitus without complications, E55.9 - Vitamin D deficiency, unspecified, G47.33 - Obstructive sleep apnea (adult) (pediatric), I10 - Essential (primary) hypertension, Z68.43 - Body mass index [BMI] 50.0-59.9, adult, Z72.0 - Tobacco use FL upper GI w air Today D64.9 - Anemia, unspecified, E11.9 - Type 2 diabetes mellitus without complications, E55.9 - Vitamin D deficiency, unspecified, G47.33 - Obstructive sleep apnea (adult) (pediatric), I10 - Essential (primary) hypertension, Z68.43 - Body mass index [BMI] 50.0-59.9, adult, Z72.0 - Tobacco use Referrals Nutrition/Dietitian Referral D64.9 - Anemia, unspecified, E11.9 - Type 2 diabetes mellitus without complications, E55.9 - Vitamin D deficiency, unspecified, G47.33 - Obstructive sleep apnea (adult) (pediatric), I10 - Essential (primary) hypertension, Z68.43 - Body mass index [BMI] 50.0-59.9, adult, Z72.0 - Tobacco use Behavioral Health Referral D64.9 - Anemia, unspecified, E11.9 - Type 2 diabetes mellitus without complications, E55.9 - Vitamin D deficiency, unspecified, G47. 33 - Obstructive sleep apnea (adult) (pediatric), I10 - Essential (primary) hypertension, Z68.43 - Body mass index [BMI] 50.0-59.9, adult, Z72.0 - Tobacco use Coding Level of Care Code New Pt Level 4 (85071) Diagnoses BMI 50.0-59.9, adult Z68.43 HTN (hypertension) I10 Vitamin D deficiency E55.9 Graves disease E05.00 Anemia D64.9 DMII (diabetes mellitus, type 2) E11.9 Obstructive sleep apnea G47.33 Diabetes E11.9 Nicotine use Z72.0
[2023-08-16 13:09] VITALS: BP 147/80; PULSE 100; TEMP 36.6; O2SAT 96; BMI 55.0
== END 2023-08-16 14:12 | disposition home or self-care (01) ==
PROVIDERS: Visit Provider Surgery
DX: E66.01 Morbid (severe) obesity due to excess calories (principal); Z68.43 Body mass index [BMI] 50.0-59.9, adult; I10 Essential (primary) hypertension; E55.9 Vitamin D deficiency, unspecified; E05.00 Thyrotoxicosis with diffuse goiter without thyrotoxic crisis or storm; D64.9 Anemia, unspecified; E11.9 Type 2 diabetes mellitus without complications; G47.33 Obstructive sleep apnea (adult) (pediatric); Z72.0 Tobacco use
CPT/HCPCS: 99204

== ENCOUNTER → 2023-08-16 12:44 | Outpatient (BNVA) | payer OTHER, SELFPAY | PROVIDERS: Visit Provider Surgery | DX: E66.01 Morbid (severe) obesity due to excess calories (principal); E55.9 Vitamin D deficiency, unspecified; E05.00 Thyrotoxicosis with diffuse goiter without thyrotoxic crisis or storm; E11.9 Type 2 diabetes mellitus without complications; I10 Essential (primary) hypertension; D64.9 Anemia, unspecified; G47.33 Obstructive sleep apnea (adult) (pediatric); Z72.0 Tobacco use; Z68.43 Body mass index [BMI] 50.0-59.9, adult | CPT/HCPCS: 99202 ==

== ENCOUNTER 2023-11-07 09:12 | Outpatient (AMB) | payer OTHER, SELFPAY ==
[2023-11-07 09:14] VITALS: BP 142/86; BMI 55.6
--- NOTE | 2023-11-07 09:14 | A.OFFVIS_ITS ---
Intake Vital Signs 11/07/23 09:14 Height 5 ft 6.5 in Weight 350 lb BMI 55.6 BP 142/86 H Intake Visit Reasons: New patient Annual/pap Intake Note: having incontinence problems and having weird movements Pageant Director Required: No Information Interpreted: non-clinical & clinical Internet Marketing Consultant: Internet Marketing Consultant Present (Aidyn) Accompanied by: Daughter Allergies aspirin [ASA] Allergy (Unknown, Verified 11/07/23 09:17) HIVES levofloxacin [From LEVAQUIN] Allergy (Unknown, Verified 11/07/23 09:17) RASH penicillin G Allergy (Unknown, Verified 11/07/23 09:17) Unknown Penicillins [PCN] Allergy (Unknown, Verified 11/07/23 09:17) HIVES Sulfa (Sulfonamide Antibiotics) [SULFA (SULFONAMIDE ANTIBIOTICS)] Allergy (Unknown, Verified 11/07/23 09:17) ITCHING Aspir-81 Allergy (Unknown, Uncoded 11/07/23 09:17) Unknown Sulfa Allergy (Unknown, Uncoded 11/07/23 09:17) Unknown SURGICAL TAPE Allergy (Unknown, Uncoded 11/07/23 09:17) UNKNOWN Medication List - Last Reconciled 11/07/23 by Jennifer Monique CNM albuterol sulfate 5 mg inhalation Q4H PRN albuterol sulfate 90 mcg/actuation 2 puffs PO Q4-6H PRN blood pressure test kit-large As directed cyclobenzaprine 5 mg PO TID PRN cyclobenzaprine 10 mg PO BEDTIME diclofenac sodium 50 mg PO BID fluticasone propionate 110 mcg/actuation 110 mcg inhalation ONCE PRN ibuprofen 800 mg PO Q8H PRN inhalational spacing device As directed ketoconazole 2% 1 appl topical 2XW lamotrigine 25 mg PO DAILY lisinopril-hydrochlorothiazide 20-25 mg 1 tab PO DAILY loratadine (Claritin) 10 mg PO DAILY metformin 500 mg PO DAILY methylprednisolone (Medrol (Jacoby)) PO PER PKG DIR metoprolol succinate ER 50 mg PO DAILY omeprazole 20 mg PO DAILY triamcinolone acetonide 0.025% appl topical Is last menstrual period known: Yes Last menstrual period: 09/16/23 Post menopausal: No HPI New patient Annual/pap HPI Details Patient is here is a new environmental planning engineer visit. She has not been in for environmental planning engineer care to anywhere for many years she had 1 baby in [place] and her others at [facility]. She says she has not been taking care of herself and she has multiple medical problems and now is trying to take care of herself she has hypertension and diabetes and sleep apnea and trouble breathing and asthma. She has problems with her joints and walking and she also gets sleepy all the time and sometimes just falls asleep if she is talking to somebody she keeps her daughter with her. She is now planning to deal with her weight issue and going to the weight management program she has not fully started yet but she has appointments and has had lab work and she will be starting on the shakes soon and she is planning to deal with this in a more assertive way. She also sometimes has problems holding her urine. And she wanted to mention that as well. She said she recently had the flu and then soon after that she had COVID she feels she is passed the contagion point and quarantine point for both. She normally gets fairly regular periods about once a month or so sometimes they can be late she had her last period September 15 and she came down with COVID on October 16 so she has not had a period in October yet. She had her tubes tied so that is her method of control She has her teenage daughter with her in the room. [facility] Medical History (Updated 11/07/23 @ 12:38 by Jennifer Monique CNM) Diabetes Obstructive sleep apnea Morbid obesity HTN (hypertension) Vitamin D deficiency Multinodular thyroid Graves disease Surgical History (Updated 11/07/23 @ 12:38 by Jennifer Monique CNM) Hx of tubal ligation History of excision of pilonidal cyst History of 2 sections Family History (Updated 11/07/23 @ 09:20 by JAVIER Munguia) Father Hypertension Mother Hypertension Diabetes Maternal Grandmother Ovarian cancer Mother Uterine cancer Social History (Updated 11/07/23 @ 09:21 by JAVIER Munguia) Alcohol intake: current Alcohol intake frequency: holidays/special occasions only Patient Tobacco Use Status: Current everyday Tobacco user Cigarettes Per Day: 5 Female Reproductive History Menstrual Age of Menarche: 11 Duration of menses: 3-5 days Date of last menstrual period: 09/16/23 control method: other (tubal ligation) Total pregnancies: 7 Full term: 6 Number of Living Children: 6 Ab spontaneous: 1 Physical Exam Vital Signs: Last Vital Signs BP 142/86 H 11/07/23 09:14 BMI result Body Mass Index 55.6 Const Nutritional Appearance: obese morbidly obese Chest Other: Breast exam within normal limits obesity noted Other: Exam somewhat limited by obesity vagina pink moist cervix multiparous pink moist discharge appeared within normal limits very good tone with Kegel. Pelvic structures not fully palpable because of obesity as well as abdominal obesity. Speculum Exam - Vagina: normal appearance of the vagina and other Speculum Exam - Cervix: normal appearance of the cervix and Other cervical findings present (limited views) Bimanual exam- vagina & uterus: other (uterus difficult to assess 2' habitus) Bimanual Exam- Adnexa, other: Other (palpation of adnexae limited 2' habitus) Assessment & Plan Assessment & Plan (1) BMI 50.0-59.9, adult: Code(s): Z68.43 - Body mass index [BMI] 50.0-59.9, adult (2) DMII (diabetes mellitus, type 2): Code(s): E11.9 - Type 2 diabetes mellitus without complications (3) HTN (hypertension): Code(s): I10 - Essential (primary) hypertension (4) Women's annual routine gynecological examination: Code(s): Z01.419 - Encounter for gynecological examination (general) (routine) without abnormal findings (5) Cervical cancer screening: Code(s): Z12.4 - Encounter for screening for malignant neoplasm of cervix Plan -----Discussed in this visit the following: healthy balanced diet, regular and consistent exercise, getting recommended health screens, doing the best she can for her particular health concerns, kegel exercises, pap smear screening and followup recommendations, mammography screening and SBE, normal changes in cycles in her life stage--- . She says she will be rescheduling her mammogram that she had to miss because she was sick. I congratulated her on her determination to try and deal with all her many health problems and reinforced that it all starts with the weight loss program and I hope she does well and reaches her goals. Encouraged her to make that the focus right now because all of her other health concerns will be improved with weight loss I had her reproduce a Kegel exercise and she had very very good tone with Kegel and I encouraged her to do them a few times a day. We will see her in 1 year Orders: Orders CT NG by PCR Today Z20.2 - Contact with and (suspected) exposure to infections with a predominantly sexual mode of transmission Pap Smear Today C53.9 - Malignant neoplasm of cervix uteri, unspecified Bacterial Vaginosis Panel Today Z20.2 - Contact with and (suspected) exposure to infections with a predominantly sexual mode of transmission Coding Level of Care Code New Pt Prev Care 40-64y(18041) Diagnoses BMI 50.0-59.9, adult Z68.43 DMII (diabetes mellitus, type 2) E11.9 HTN (hypertension) I10 Women's annual routine gynecological examination Z01.419 Cervical cancer screening Z12.4
--- OUTSIDE RECORDS SUMMARY | 2023-11-07 09:14 | XMS_ITS | Continuity of Care Document ---
Author Name Unknown Organization [facility] Address [address] [place] [address] [address] [place] [address]- Care Team Providers Care Airline Radio Operator Name Role Phone Neli HALEY, Ellen Schneider Primary Care Physician [phone] Encounter [facility] [place] Date(s): 12/08/19 - 02/08/[address] [place] [address]- [facility] Attending Physician: Juan Aranda MD Referring Physician: Catarina Lerma DO Allergies, Adverse Reactions, Alerts Substance Reaction Severity Status penicillin Swelling of throat Hives Active sulfADIAZINE C/O: itching Rash Active aspirin Swelling of throat Hives Active Levaquin C/O: itching Rash Active Adhesive Bandage 1 Rash Active Tape 2 Active 1transpore tape 2transpore tape = rash Immunizations Given and Recorded Vaccine Date Status Refusal Reason influenza virus vaccine, inactivated 08/09/16 Give n influenza virus vaccine, inactivated 07/01/13 Give n influenza virus vaccine, inactivated 08/24/11 Give n tetanus/diphtheria/pertussis, acel(Tdap) 07/01/13 Given Medications albuterol 90 mcg/inh inhalation powder 2 puffs, Inhalation, Every 6 hours, PRN as needed, # 1 each, 4 Refills, Maintenance, 08/09/16 10:56:12, Powder, 2 puffs Inhalation Every 6 hours,PRN:as needed Start Date: 08/09/16 Status: Ordered clindamycin 1% topical gel 1 application, Topically, 2 times a day, # 30 Gm, 0 Refills, Maintenance, 12/12/16 14:23:32, Gel, 1application Topically 2 times a day,x21 days Start Date: 12/12/16 Stop Date: 01/02/17 Status: Ordered ferrous sulfate 325 mg oral tablet 1 tablet = 325 mg, By Mouth, 3 times a day, # 90 tablet, 3 Refills, Maintenance, 11/29/16 10:55:33,Tablet Start Date: 11/29/16 Status: Ordered Flonase 50 mcg/inh nasal spray 1 sprays, Nares, Both, 2 times a day, # 16 Gm, 0 Refills, Maintenance, 02/05/17 11:44:44, [place], 1 sprays Nares, Both 2 times a day Start Date: 02/05/17 Status: Ordered Flovent HFA 220 mcg/inh inhalation aerosol 1 puffs, Inhalation, 2 times a day, # 12 Gm, 2 Refills, Maintenance, 01/19/17 13:10:37, Aerosol Start Date: 01/19/17 Status: Ordered folic acid 0.4 mg oral tablet 1 tablet = 0.4 mg, By Mouth, Daily, # 30 tablet, 3 Refills, Maintenance, 11/29/16 10:55:51, Tablet Start Date: 11/29/16 Stop Date: 03/29/17 Status: Ordered Gauze Pad (4 X 4) See Instructions, # 100 each, Refills 1, Tot. Refills 1, Maintenance, to apply to wound, 11/29/16 10:48:37, Compound Start Date: 11/29/16 Status: Ordered Gauze Pad (4 X 4) See Instructions, # 100 each, Refills 3, Tot. Refills 3, Maintenance, to apply to affected area forcovering lesions, 12/12/16 14:21:12, Compound Start Date: 12/12/16 Status: Ordered ketoconazole 2% topical shampoo 1 application, Topically, Once, apply every 3 days as needed, # 120 mL, 0 Refills, Soft Stop, 05/23/17 14:43:40, Shampoo, 1 application Topically Once,Instr:apply every 3 days as needed Start Date: 05/23/17 Status: Ordered loratadine 10 mg oral tablet 10 mg, 1, tablet, By Mouth, Daily, # 30 tablet, Refills 1, Tot. Refills 1, Maintenance, 02/09/17 13:41:20, Route to Pharmacy Electronically, [id number], [facility]/pharmacy #[id number] Start Date: 02/09/17 Status: Ordered Medical Tape Medical Tape, See Instructions, # 2 each, Refills 0, Tot. Refills 0, Maintenance, to use with gauzepads, 12/13/16 18:01:41, Compound Start Date: 12/13/16 Status: Ordered Cradle See Instructions, # 1 each, Maintenance, Use as directed, 08/18/13 15:15:19, Compound Start Date: 08/18/13 Status: Ordered rash rash, See Instructions, # 1 each, Refills 0, Tot. Refills 0, Maintenance, paper tape to use to cover wounds, 08/09/16 11:27:44, Compound Start Date: 08/09/16 Status: Ordered Problem List Condition Effective Dates Status Health Status Inform ant *[phone]-Care Partn amina Kay(Confirmed) Active Social History Social History Type Response Smoking Status Current every day sm oker; Type: Cigarettes; Other: 2 - 3 a day; entered on: 11/29/16 Sex
--- OUTSIDE RECORDS SUMMARY | 2023-11-07 09:14 | XMS_ITS | Continuity of Care Document ---
Author Name Unknown Organization [facility] Address [address] [place] [address] [address] [place] [address]- Care Team Providers Care Capital Markets Specialist Name Role Phone Neli HALEY, Ellen Schneider Primary Care Physician [place] [facility] [place]/09/20 - 01/19/[address] [place] [address]- [facility] Attending Physician: Jolene Hyde Admitting Physician: Jolene Hyde Referring Physician: AdmtrJolene Allergies, Adverse Reactions, Alerts Substance Reaction Severity [...] 2 times a day,x21 days Start Date: 2/28/17 Stop Date: 01/02/17 Status: Ordered ferrous sulfate 325 mg oral tablet 1 tablet = 325 mg, By Mouth, 3 times a day, # 90 tablet, 3 Refills, Maintenance, 11/29/16 10:55:33,Tablet Start Date: 11/29/16 Status: Ordered Flonase 50 mcg/inh nasal spray 1 sprays, Nares, Both, 2 times a day, # 16 Gm, 0 Refills, Maintenance, 02/05/17 11:44:44, [place], 1 sprays Nares, Both 2 times a [...] Maintenance, 02/09/17 13:41:20, Route to Pharmacy Electronically, [id number], [facility]/pharmacy #[id number] Start Date: 02/09/17 Status: Ordered Medical [...] Effective Dates Status Health Status Inform ant *[phone]-[facility] Partn amina Kay(Confirmed) Active Social History Social History Type Response Smoking Status Current every day sm oker; Type: Cigarettes; Other: 2 - 3 a day; entered on: 11/29/16 Sex
--- OUTSIDE RECORDS SUMMARY | 2023-11-07 09:14 | XMS_ITS | Continuity of Care Document ---
Author Name Unknown Organization [facility] ter Address [address] [place] [address]- Care Team Providers Care Avian Keeper Name Role Phone Cherelle MUSIC MANAGER, Julianne Primary Care Physician Encounter [facility] [place] Date(s): 08/17/22 - 09/20/[address] [address] Attending Physician: Julianne Villarreal NP Admitting Physician: Julianne Villarreal NP Referring Physician: Cherelle MUSIC MANAGERJulianne Allergies, Adverse Reactions, Alerts Substance Reaction Severity Status penicillin Swelling of throat Hives Active sulfADIAZINE C/O: itching Rash Active Tape 1 Active Adhesive Bandage 2 Rash Active aspirin Swelling of throat Hives Active Levaquin C/O: itching Rash Active 1transpore tape = rash 2transpore tape Immunizations Given and Recorded Vaccine Date Status [...] 16 Gm, 0 Refills, Maintenance, 02/05/17 11:44:44, [place], 1 sprays Nares, Both 2 times a [...] 14:21:12, Compound Start Date: 12/12/16 Status: Ordered Gauze Pad (4 X 4) See Instructions, # 100 each, Refills 1, Tot. Refills 1, Maintenance, to apply to wound, 11/29/16 10:48:37, Compound Start Date: 11/29/16 Status: Ordered ketoconazole 2% topical shampoo 1 [...] Maintenance, 02/09/17 13:41:20, Route to Pharmacy Electronically, [id number], [facility]/pharmacy #[id number] Start Date: 02/09/17 Status: Ordered Medical [...] Date: 08/09/16 Status: Ordered Problem List Condition Confirmation Course Effective Dates Status Health St [facility] Informant *[phone]- [place] Mary Kate Kay Confirmed Active Social History Social History Type Response Smoking Status Current every day sm oker; Type: Cigarettes; Other: 2 - 3 a day; entered on: 11/29/16 Sex Patient Care team information Care Team Personnel Name: [place] MUSIC MANAGER, Julianne Position: Reference Physician Member Role: PCP Address: Address: [address] [place] [id number]- Care Team Related Persons Name: LUIS ENRIQUEZ Address: home [address] [place] [id number]
== END 2023-11-07 10:29 | disposition home or self-care (01) ==
LOC: HO.HWS 09:12
PROVIDERS: PCP Internal Medicine; Visit Provider Advanced Practice Midwife
DX: Z01.419 Encounter for gynecological examination (general) (routine) without abnormal findings (principal); Z68.43 Body mass index [BMI] 50.0-59.9, adult; E11.9 Type 2 diabetes mellitus without complications; I10 Essential (primary) hypertension; Z12.4 Encounter for screening for malignant neoplasm of cervix
CPT/HCPCS: 99386

== ENCOUNTER 2023-11-07 09:12 | Outpatient (REF) | payer OTHER, SELFPAY ==
[2023-11-08 03:24] LABS: CT PCR NOT DETECTED (Not Detect.); NG PCR NOT DETECTED (Not Detect.)
[2023-11-08 13:44] LABS: BV Int Neg Control Negative (Negative); BV Int Pos Control Positive (Positive)
[2023-11-10 06:43] LABS: HPV mRNA E6/E7 rflx Not Detected (Not Detected)
== END 2023-11-07 09:13 | disposition home or self-care (01) ==
LOC: HO.LNP 09:12
PROVIDERS: PCP Internal Medicine; Visit Provider Advanced Practice Midwife
DX: Z01.419 Encounter for gynecological examination (general) (routine) without abnormal findings (principal); C53.9 Malignant neoplasm of cervix uteri, unspecified; Z20.2 Contact with and (suspected) exposure to infections with a predominantly sexual mode of transmission; Z79.899 Other long term (current) drug therapy
CPT/HCPCS: 0353U; 87480; 87510; 87624; 87660; 88142

== ENCOUNTER 2023-12-10 14:03 | Outpatient (REF) | payer OTHER, SELFPAY | END 2023-12-10 14:04 | disposition home or self-care (01) | LOC: HO.MAMMO 14:03 | PROVIDERS: PCP Internal Medicine; Visit Provider Internal Medicine | DX: Z12.31 Encounter for screening mammogram for malignant neoplasm of breast (principal) | CPT/HCPCS: 77063; 77067 ==

== ENCOUNTER → 2023-12-10 14:30 | Outpatient (BNV) | payer OTHER, SELFPAY | PROVIDERS: PCP Internal Medicine; Visit Provider Radiology Diagnostic Radiology | DX: Z12.31 Encounter for screening mammogram for malignant neoplasm of breast (principal) | CPT/HCPCS: 77063; 77067 ==

== ENCOUNTER → 2024-01-09 13:35 | Outpatient (BNVA) | payer OTHER, SELFPAY | PROVIDERS: PCP Internal Medicine; Visit Provider Surgery ==

== ENCOUNTER 2024-03-07 13:37 | Emergency (ER) | payer OTHER, SELFPAY ==
[2024-03-07 13:55] VITALS: BP 136/83; PULSE 95; RESP 20; TEMP 36.6; O2SAT 97; BMI 59.4
--- NOTE | 2024-03-07 13:56 | ED_ITS ---
HPI - Skin/Abscess/Foreign Bdy General Chief complaint: Wound/Laceration Stated complaint: finger needs stitches ? Time Seen by Provider: 03/07/24 16:00 Source: patient Mode of arrival: ambulatory Limitations: no limitations History of Present Illness HPI narrative: patient is a 38-year-old female who presents emergency department for evaluation of a laceration to the distal tip of the left 2nd digit on the palmar aspect. Sustained yesterday night, reports that she was making jewelry and accidentally cut the tip of her finger with scissors. She thought that the bleeding with stop on its own, however when she removed the bandage this morning it began bleeding again which prompted her evaluation in the emergency department. She denies use of blood thinners. Denies numbness or tingling to the digit. reports she is up-to-date on tetanus vaccination Related Data Home Medications ?Medication ?Instructions ?Recorded ?Confirmed albuterol sulfate 90 mcg/actuation 2 puff PO Q4-6H PRN 09/06/20 11/07/23 aerosol inhaler blood pressure test kit-large #1 ea 09/06/20 11/07/23 cyclobenzaprine 10 mg tablet 10 mg PO BEDTIME 09/06/20 11/07/23 diclofenac sodium 50 mg 50 mg PO BID 09/06/20 11/07/23 tablet,delayed release ketoconazole 2 % shampoo 1 applic topical 2XW 09/06/20 11/07/23 triamcinolone acetonide 0.025 % applic topical 09/06/20 11/07/23 topical cream inhalational spacing device #1 ea 10/14/20 11/07/23 fluticasone propionate 110 110 mcg inhalation ONCE PRN 03/31/21 11/07/23 mcg/actuation HFA aerosol inhaler metformin 500 mg tablet 500 mg PO DAILY 11/02/21 11/07/23 lamotrigine 25 mg tablet 25 mg PO DAILY 06/04/23 11/07/23 lisinopril 20 1 tab PO DAILY 06/04/23 11/07/23 mg-hydrochlorothiazide 25 mg tablet omeprazole 20 mg capsule,delayed 20 mg PO DAILY 06/04/23 11/07/23 release metoprolol succinate 50 mg 50 mg PO DAILY 06/05/23 11/07/23 tablet,extended release 24 hr Previous Rx's ?Medication ?Instructions ?Recorded albuterol sulfate 2.5 mg/0.5 mL 5 mg inhalation Q4H PRN shortness 02/14/21 solution for nebulization of breath or wheezing #30 ea loratadine 10 mg tablet (Claritin) 10 mg PO DAILY #20 tabs 03/09/21 cyclobenzaprine 5 mg tablet 5 mg PO TID PRN muscle spasm #14 03/22/23 tabs ibuprofen 800 mg tablet 800 mg PO Q8H PRN pain #45 tabs 03/22/23 methylprednisolone 4 mg tablets in See Rx Instructions PO PER PKG DIR 06/26/23 a dose pack (Medrol (Jacoby)) #21 ea Allergies Allergy/AdvReac Type Severity Reaction Status Date / Time aspirin [ASA] Allergy Unknown HIVES Verified 03/07/24 13:58 levofloxacin [From LEVAQUIN] Allergy Unknown RASH Verified 03/07/24 13:58 penicillin G Allergy Unknown Unknown Verified 03/07/24 13:58 Penicillins [PCN] Allergy Unknown HIVES Verified 03/07/24 13:58 Sulfa (Sulfonamide Allergy Unknown ITCHING Verified 03/07/24 13:58 Antibiotics) [SULFA (SULFONAMIDE ANTIBIOTICS)] Aspir-81 Allergy Unknown Unknown Uncoded 03/07/24 13:58 Sulfa Allergy Unknown Unknown Uncoded 03/07/24 13:58 SURGICAL TAPE Allergy Unknown UNKNOWN Uncoded 03/07/24 13:58 Review of Systems Review of Systems: Yes all other systems are reviewed and are negative PMFSH Past Medical History Attestation statement: The following information was validated with the patient. Source: old records reviewed Medical History Diabetes Obstructive sleep apnea Morbid obesity HTN (hypertension) Vitamin D deficiency Multinodular thyroid Graves disease Surgical History Hx of tubal ligation History of excision of pilonidal cyst History of 2 sections Family History Family History (Updated 11/07/23 @ 09:20 by JAVIER Munguia) Father Hypertension Mother Hypertension Diabetes Maternal Grandmother Ovarian cancer Mother Uterine cancer Social History Social History (Updated 11/07/23 @ 09:21 by JAVIER Munguia) Alcohol intake: current Alcohol intake frequency: holidays/special occasions only Patient Tobacco Use Status: Current everyday Tobacco user Cigarettes Per Day: 5 Advance Directives: No Advance Directives Information Provided: No Physical Exam Vital Signs: Vital Signs: Last Vital Signs Temp 98 F 03/07/24 16:48 Pulse 88 03/07/24 16:48 Resp 20 03/07/24 16:48 BP 138/78 03/07/24 16:48 Pulse Ox 98 03/07/24 16:48 O2 Del Method Room Air 03/07/24 16:48 BMI result Body Mass Index 59.4 Appearance: Alert.?Oriented to person, place and time. No acute distress.?Normal affect. Neck: Normal inspection.? Neck supple.?? CVS: Heart sounds normal. Normal heart rate and rhythm.? Pulses normal.?? Respiratory: No respiratory distress.? Lung sounds clear to auscultation bilaterally?? Skin: Skin warm and dry.? Normal skin color.? Palmar aspect of distal tip of left 2nd digit with superficial thin flap-like laceration, 1 cm on each side. No active bleeding. Flap edges approximate well?? Extremities: No lower extremity edema.? Neuro: Moves all extremities spontaneously. Sensation intact bilaterally. Ambulates with normal steady gait. Course Course Course Narrative: This is an RME: Additional HPI, ROS, PE not included below will be deferred to primary provider. RME assessment and note performed by: Neelima Davenport PA-C This is a [id number]-female, with a history of type 2 diabetes, hypertension, Graves disease, who presents emergency department for evaluation of left 2nd digit laceration while making drawer yesterday. She accidentally lacerated her left 2nd digit on scissors last night. Avulsion type laceration noted to the DIP, may need sutures. Plan: Wound repair Medical Decision Making Medical Decision Making MDM Narrative: patient is a 38-year-old female who presents emergency department for evaluation of a superficial flap-like laceration to the distal tip on the palmar aspect of the left 2nd digit as per HPI. She feels strongly about avoiding repair with suture if possible. On examination the flap is very thin and superficial, which may even tear if attempting to suture. The edges are well approximated, distal tip is not under any point of tension. Irrigated extensively with normal saline. Full range of motion is intact to the digit. Suture closure with Steri-Strips and skin adhesive. Advised a worrisome signs and symptoms that would warrant re-evaluation in the emergency department including signs of infection. Stable for discharge. Differential Diagnosis Differential Diagnoses: The differential diagnosis associated with the presentation includes ( Laceration, uncontrolled bleeding, neurovascularly intact distally.) External Record Review External record reviewed: Outpatient record Prescription Management I considered prescription management with: Pain Medication ( Acetaminophen/ibuprofen) Procedures Laceration Laceration 1: Site: hand ( finger) Side (If applicable): left Size (cm): 2 Description: flap Depth: simple, single layer Pre-repair: wound explored, irrigated extensively and deep structures intact Discharge Plan Discharge Clinical Impression: Finger laceration Qualifiers: Encounter type: initial encounter Finger: index finger Damage to nail status: without damage Foreign body presence: without foreign body Laterality: left Qualified Code(s): S61.211A - Laceration without foreign body of left index finger without damage to nail, initial encounter Patient Disposition: Home, Self-Care Instructions: Finger Laceration (ED), Skin Adhesive Care (ED), Steristrips (ED) Prescriptions: No Action albuterol sulfate 2.5 mg/0.5 mL solution for nebulization 5 mg inhalation Q4H PRN (Reason: shortness of breath or wheezing) Qty: 30 0RF loratadine [Claritin] 10 mg tablet 10 mg PO DAILY Qty: 20 0RF cyclobenzaprine 5 mg tablet 5 mg PO TID PRN (Reason: muscle spasm) Qty: 14 0RF ibuprofen 800 mg tablet 800 mg PO Q8H PRN (Reason: pain) Qty: 45 0RF cyclobenzaprine 10 mg tablet 10 mg PO BEDTIME diclofenac sodium 50 mg tablet,delayed release (DR/EC) 50 mg PO BID albuterol sulfate 90 mcg/actuation HFA aerosol inhaler 2 puff PO Q4-6H PRN triamcinolone acetonide 0.025 % cream topical (DME) blood pressure test kit-large Kit See Rx Instructions .ROUTE .MEDSUPPLY Qty: 1 Rx Instructions: As directed ketoconazole 2 % shampoo 1 applic topical 2XW (DME) Aerochamber Plus Flow-Vu Spacer See Rx Instructions .ROUTE .MEDSUPPLY Qty: 1 Rx Instructions: As directed fluticasone propionate 110 mcg/actuation HFA aerosol inhaler 110 mcg inhalation ONCE PRN metformin 500 mg tablet 500 mg PO DAILY lamotrigine 25 mg tablet 25 mg PO DAILY omeprazole 20 mg capsule,delayed release(DR/EC) 20 mg PO DAILY lisinopril-hydrochlorothiazide 20-25 mg tablet 1 tab PO DAILY methylprednisolone [Medrol (Jacoby)] 4 mg tablets,dose pack See Rx Instructions PO PER PKG DIR Qty: 21 0RF Rx Instructions: PO PER PKG DIR metoprolol succinate 50 mg tablet extended release 24 hr 50 mg PO DAILY Referrals: Pao Farrell MD [Primary Care Provider] - Interventions: ED Discharge Assessment Last Done: 03/07/24 16:48 Discharge Date/Time: 03/07/24 16:49 Print Language: Norwegian
[2024-03-07 16:44] VITALS: BP 138/78; PULSE 88; RESP 20; TEMP 36.6; O2SAT 98
[2024-03-07 16:48] VITALS: BP 138/78; PULSE 88; RESP 20; TEMP 36.6; O2SAT 98
== END 2024-03-07 16:49 | disposition home or self-care (01) ==
PROVIDERS: Emergency Provider Emergency Medicine; PCP Internal Medicine
DX: S61.211A Laceration without foreign body of left index finger without damage to nail, initial encounter (principal); W26.9XXA Contact with unspecified sharp object(s), initial encounter; Y93.89 Activity, other specified; Y92.89 Other specified places as the place of occurrence of the external cause; Y99.9 Unspecified external cause status
CPT/HCPCS: 12001; 99282; 99283

== ENCOUNTER 2024-03-17 08:05 | Outpatient (AMB) | payer OTHER, SELFPAY ==
--- NOTE | 2024-03-17 13:19 | MHC.OFFVISWM ---
VS Expanded 03/17/24 13:37 Height 5 ft 6.5 in Weight 352 lb 4 oz BMI 56.0 Body Fat % 55.2 Body Fat Mass 194.4 Fat Free Mass 157.8 Visceral Fat Rating 21 Body Water % 32.1 Body Water Mass 113 Basal Metabolic Rate/Score 2,353 Intake Visit Reasons: TV Re-Est SWL BMI 56.0 *SEE COMMENTS Allergies aspirin [ASA] Allergy (Unknown, Verified 03/17/24 13:20) HIVES levofloxacin [From LEVAQUIN] Allergy (Unknown, Verified 03/17/24 13:20) RASH penicillin G Allergy (Unknown, Verified 03/17/24 13:20) Unknown Penicillins [PCN] Allergy (Unknown, Verified 03/17/24 13:20) HIVES Sulfa (Sulfonamide Antibiotics) [SULFA (SULFONAMIDE ANTIBIOTICS)] Allergy (Unknown, Verified 03/17/24 13:20) ITCHING Aspir-81 Allergy (Unknown, Uncoded 03/17/24 13:20) Unknown Sulfa Allergy (Unknown, Uncoded 03/17/24 13:20) Unknown SURGICAL TAPE Allergy (Unknown, Uncoded 03/17/24 13:20) UNKNOWN Medication List - Last Reconciled 03/17/24 by Jamie Rueda MD albuterol sulfate 5 mg inhalation Q4H PRN albuterol sulfate 90 mcg/actuation 2 puffs PO Q4-6H PRN blood pressure test kit-large As directed cyclobenzaprine 5 mg PO TID PRN cyclobenzaprine 10 mg PO BEDTIME fluticasone propionate 110 mcg/actuation 110 mcg inhalation ONCE PRN inhalational spacing device As directed ketoconazole 2% 1 appl topical 2XW lamotrigine 25 mg PO DAILY lisinopril-hydrochlorothiazide 20-25 mg 1 tab PO DAILY loratadine (Claritin) 10 mg PO DAILY metformin 500 mg PO DAILY metoprolol succinate ER 50 mg PO DAILY omeprazole 20 mg PO DAILY triamcinolone acetonide 0.025% appl topical HPI HPI TV Re-Est SWL BMI 56.0 *SEE COMMENTS: Details: Start time: 1.15pm, End time: 1.56pm ?I spent 36 minutes speaking with the patient on the phone plus an additional 5 minutes reviewing and updating records for a total of 41 minutes HPI Comments Details: Previous weight loss efforts: Self diets Wakes up: 11am, Sleeps: 11pm Breakfast: skips Lunch: skips Dinner: 6pm (rice, beans pasta, meat) Snacks: 1pm (sandwich or cookies), 9pm (chips. fruits, ice cream) Exercise: has home treadmill Fluids: Coffee: 1 cup/d with cream and sugar, Iced tea: some days of the week (Carroll), soda: none, juice: 1-2/wk. ETOH: on weekends (Nya 300ml) PFSH Medical History (Updated 03/17/24 @ 13:28 by Jamie Rueda MD) Bipolar 1 disorder PTSD (post-traumatic stress disorder) Depression DJD (degenerative joint disease) Asthma Diabetes Obstructive sleep apnea Morbid obesity HTN (hypertension) Vitamin D deficiency Multinodular thyroid Graves disease Surgical History Hx of tubal ligation History of excision of pilonidal cyst History of 2 sections Family History (Updated 11/07/23 @ 09:20 by JAVIER Munguia) Father Hypertension Mother Hypertension Diabetes Maternal Grandmother Ovarian cancer Mother Uterine cancer Social History (Updated 11/07/23 @ 09:21 by JAVIER Munguia) Alcohol intake: current Alcohol intake frequency: holidays/special occasions only Patient Tobacco Use Status: Current everyday Tobacco user Cigarettes Per Day: 5 Female Reproductive History Menstrual Age of Menarche: 11 Telehealth Telehealth Telehealth Platform: Telephone Location of provider rendering services: practice address Location of patient: address on file Patient Identification confirmed using: Name, : Yes Telehealth method: voice only Patient verbally consented to treatment: Yes Patient verbally consented to billing insurance company: Yes Patient informed of any privacy concerns related to visit: Yes Minutes spent on Phone/Video with Pt.: 41 Assessment & Plan Assessment & Plan (1) Morbid obesity: Code(s): E66.01 - Morbid (severe) obesity due to excess calories Category: Medical Plan: 1.? Plan for lap sleeve gastrectomy. If diaphragmatic or ventral hernias are present at time of surgery, these will be repaired laparoscopically as well. Risks and complications were discussed in detail including possible conversion to an open procedure, anastomotic leak, bleeding requiring transfusion, small bowel obstruction, , DVT and pulmonary embolism, cardiac, or pulmonary complications, as java core developer complications such as anastomotic ulcer, insufficient weight loss and vitamin deficiencies. I emphasized the importance of close follow-up, adherence to instructions and good communication. 2. Nutritional counseling. Start with 2 PREMIER protein shakes (ONE scoop EACH in 8oz low fat unsweetened almond milk each) at 11am-11pm and 2pm-4pm, dinner at 5pm (10 forks of protein and 10 forks of salad/vegetables) AND two protein bars (CELEBRATE protein bars, buy at [facility] [employer] [facility]) after dinner at 7pm-9pm and 9pm-11pm So you do 2 protein shakes, 2 protein bars and one meal per day. Meal to include lean meat (beef, fish, pork, turkey, chicken), or moldovan yogurt, or egg whites, or beans with a salad with olive oil and fruits (berries, pears, apples, kiwi). Avoid salt, breads, potatoes, rice, pasta, desserts. 3. Each shake would be drunk slowly, like coffee in a period of 2 hours. 4. Cut each bar in 4 pieces and eat each piece in 30min ?to make each bar last 2 hours. 5. I emphasized the importance of measuring accurately the food portion and measure it when serving the food in plate 6. The meal portions include 10 full-size forks of meat and 10 full-size forks of salad. You always eat the meat portion but you can replace up to 5 forks for salad/vegetables with rice, potatoes or pasta, or a fruit ?if you like. The less you do it the better weight loss will be. 7. One full-size fork is what it can be scooped on the fork without falling aside and not what can be bit with the fork. Use regular forks like those you find in a typical restaurant. 8.? Please send me weight measurements as soon as possible and then once a week. Always include your diet and exercise plan. 9. Start treadmill with an incline of 0.0 and speed of 2.0. Increase incline by 1 every 3 min to a max incline of 6.0, stay 3min at 6.0 and then return to 0.0 and repeat same steps until calorie goal is met. Goal is to burn 2000 calories per week on exercise, which means either 300 calories daily. You can do one work-out for 300 calories or you can break it down to 3 sessions of 100 calories each. 10.?It is important of avoiding and for at least 18 months postoperatively and has been discussed at the infosession. 11. Goal is to lose at least 1.5-2lbs per week 12. Goal to lose 10% of your weight before surgery, which is about 35lbs. Ultimate weight goal: 317lbs before surgery 13. Please follow the diet plan exactly without any change. If you don't like something about the plan or you feel hungry you need to communicate with me so I can help you revise the plan. You should not change the plan yourself. 14. To be scheduled for EGD due to history of GERD. The possibility of biopsies was discussed. Patient needs to avoid use of NSAIDs and aspirin for 1 week prior to EGD. Risks of perforation and? bleeding was discussed with the patient. This will be an outpatient procedure with IV sedation. Orders: Orders Comprehensive Met. Panel Today E11.9 - Type 2 diabetes mellitus without complications, E66.01 - Morbid (severe) obesity due to excess calories, I10 - Essential (primary) hypertension Vitamin B12 and Folate Today E11.9 - Type 2 diabetes mellitus without complications, E66.01 - Morbid (severe) obesity due to excess calories, I10 - Essential (primary) hypertension TSH reflex Free T4 Today E11.9 - Type 2 diabetes mellitus without complications, E66.01 - Morbid (severe) obesity due to excess calories, I10 - Essential (primary) hypertension Ferritin Today E11.9 - Type 2 diabetes mellitus without complications, E66.01 - Morbid (severe) obesity due to excess calories, I10 - Essential (primary) hypertension US abdomen comp w elastography Today E11.9 - Type 2 diabetes mellitus without complications, E66.01 - Morbid (severe) obesity due to excess calories, I10 - Essential (primary) hypertension XR chest 2V Today E11.9 - Type 2 diabetes mellitus without complications, E66.01 - Morbid (severe) obesity due to excess calories, I10 - Essential (primary) hypertension ECG 12 lead EKG Today E11.9 - Type 2 diabetes mellitus without complications, E66.01 - Morbid (severe) obesity due to excess calories, I10 - Essential (primary) hypertension FL upper GI w air Today E11.9 - Type 2 diabetes mellitus without complications, E66.01 - Morbid (severe) obesity due to excess calories, I10 - Essential (primary) hypertension Insulin Today E11.9 - Type 2 diabetes mellitus without complications, E66.01 - Morbid (severe) obesity due to excess calories, I10 - Essential (primary) hypertension Hemoglobin A1c Today E11.9 - Type 2 diabetes mellitus without complications, E66.01 - Morbid (severe) obesity due to excess calories, I10 - Essential (primary) hypertension H Pylori Breath Test Today E11.9 - Type 2 diabetes mellitus without complications, E66.01 - Morbid (severe) obesity due to excess calories, I10 - Essential (primary) hypertension Complete Blood Count Auto Diff Today E11.9 - Type 2 diabetes mellitus without complications, E66.01 - Morbid (severe) obesity due to excess calories, I10 - Essential (primary) hypertension Lipid Panel Today E11.9 - Type 2 diabetes mellitus without complications, E66.01 - Morbid (severe) obesity due to excess calories, I10 - Essential (primary) hypertension IRON PROFILE Today E11.9 - Type 2 diabetes mellitus without complications, E66.01 - Morbid (severe) obesity due to excess calories, I10 - Essential (primary) hypertension Zinc Today E11.9 - Type 2 diabetes mellitus without complications, E66.01 - Morbid (severe) obesity due to excess calories, I10 - Essential (primary) hypertension C Reactive Protein Today E11.9 - Type 2 diabetes mellitus without complications, E66.01 - Morbid (severe) obesity due to excess calories, I10 - Essential (primary) hypertension Vitamin B1 Today E11.9 - Type 2 diabetes mellitus without complications, E66.01 - Morbid (severe) obesity due to excess calories, I10 - Essential (primary) hypertension Vitamin A Today E11.9 - Type 2 diabetes mellitus without complications, E66.01 - Morbid (severe) obesity due to excess calories, I10 - Essential (primary) hypertension Vitamin D 25-OH Total Today E11.9 - Type 2 diabetes mellitus without complications, E66.01 - Morbid (severe) obesity due to excess calories, I10 - Essential (primary) hypertension Referrals Behavioral Health Referral E11.9 - Type 2 diabetes mellitus without complications, E66.01 - Morbid (severe) obesity due to excess calories, I10 - Essential (primary) hypertension Nutrition/Dietitian Referral E11.9 - Type 2 diabetes mellitus without complications, E66.01 - Morbid (severe) obesity due to excess calories, I10 - Essential (primary) hypertension
[2024-03-17 13:37] VITALS: BMI 56.0
== END 2024-03-17 13:57 | disposition home or self-care (01) ==
LOC: HO.HBS 08:05
PROVIDERS: PCP Internal Medicine; Visit Provider Surgery
DX: E66.01 Morbid (severe) obesity due to excess calories (principal); Z68.43 Body mass index [BMI] 50.0-59.9, adult
CPT/HCPCS: 99443

== ENCOUNTER → 2024-03-17 08:05 | Outpatient (BNVA) | payer OTHER, SELFPAY | PROVIDERS: PCP Internal Medicine; Visit Provider Surgery ==

== ENCOUNTER 2024-07-01 11:43 | Outpatient (AMB) | payer OTHER, SELFPAY ==
--- NOTE | 2024-07-01 11:46 | MHC.OFFVIS ---
Vital Signs 07/01/24 11:54 Height 5 ft 5 in Weight 364 lb BMI 60.6 BP 146/88 H Blood Pressure Location Rt brachial Position Sitting Pulse 76 Intake Visit Reasons: painful mass back of neck Intake Note: Patient referred by pcp Dr. Farrell for painful mass on mid posterior neck. Present for 1yr. 2 smaller cysts near area of concern. Pain that spreads to head. 2nd concern: hydradenitis suppurative on axilla area. Sales And Service Advisor Required: No Allergies aspirin [ASA] Allergy (Unknown, Verified 07/01/24 11:52) HIVES levofloxacin [From LEVAQUIN] Allergy (Unknown, Verified 07/01/24 11:52) RASH penicillin G Allergy (Unknown, Verified 07/01/24 11:52) Unknown Penicillins [PCN] Allergy (Unknown, Verified 07/01/24 11:52) HIVES Sulfa (Sulfonamide Antibiotics) [SULFA (SULFONAMIDE ANTIBIOTICS)] Allergy (Unknown, Verified 07/01/24 11:52) ITCHING Aspir-81 Allergy (Unknown, Uncoded 07/01/24 11:52) Unknown Sulfa Allergy (Unknown, Uncoded 07/01/24 11:52) Unknown SURGICAL TAPE Allergy (Unknown, Uncoded 07/01/24 11:52) UNKNOWN HPI Comments Details: Patient presents for evaluation with her significant other of to posterior neck symptomatic sebaceous cysts and hidradenitis suppurativa involving the right axilla. The posterior neck cysts are increasing in size and becoming more symptomatic. Patient has had a longstanding history of hidradenitis suppurativa especially involving the right axilla. It has come to a point where it is impairing her lifestyle and her ability to function and shaved the axillary area. Chart was reviewed and patient evaluated. She is been on long-term antibiotics regarding the hidradenitis suppurativa and would like to know if this is a surgical option to remove this process. [facility] Medical History Bipolar 1 disorder PTSD (post-traumatic stress disorder) Depression DJD (degenerative joint disease) Asthma Diabetes Obstructive sleep apnea Morbid obesity HTN (hypertension) Vitamin D deficiency Multinodular thyroid Graves disease Surgical History Hx of tubal ligation History of excision of pilonidal cyst History of 2 sections Family History Father Hypertension Mother Hypertension Diabetes Maternal Grandmother Ovarian cancer Mother Uterine cancer Social History Alcohol intake: current Alcohol intake frequency: holidays/special occasions only Patient Tobacco Use Status: Current everyday Tobacco user Cigarettes Per Day: 5 Female Reproductive History Menstrual Age of Menarche: 11 Physical Exam Vital Signs: Last Vital Signs Pulse 76 07/01/24 11:54 BP 146/88 H 07/01/24 11:54 BMI result Body Mass Index 60.6 Const Other: Corpulent female in no acute distress Neck Other: Roughly 3 x 2 cm mid posterior neck soft tissue mass consistent with a sebaceous cyst. Some very mild hidradenitis suppurativa skin changes. Chest Other: Chest breath sounds bilaterally, HS 1 in 2 GI Other: Very corpulent abdomen, benign Extrem Other: Patient has significant hidradenitis suppurativa skin changes involving the right axilla. She has similar but less severe involving the left axilla. Assessment & Plan Assessment & Plan (1) Hidradenitis suppurativa of multiple sites: Code(s): L73.2 - Hidradenitis suppurativa Category: Surgical (2) Sebaceous cyst: Code(s): L72.3 - Sebaceous cyst Category: Surgical Plan Patient would like to have the axillary hidradenitis of the right-sided dressed 1st and then the sebaceous cyst attended to. A lengthy discussion was had regarding surgical excision of the axillary skin area including all hair-bearing area in order to eradicate the hidradenitis suppurativa of the right axilla. Risks, benefits, and alternatives were extensively reviewed including but not limited to bleeding, infection, recurrence, numbness, pain, scarring, seroma formation, wound dehiscence and the patient understands and wishes to proceed. All questions answered. She will need to wear a sling for a week or 2 postoperatively as well. Patient wishes to proceed. All questions answered.. Once this process has healed, we will address the cyst sebaceous cyst of the neck. Coding Level of Care Code New Pt Level 5 (72745) Diagnoses Hidradenitis suppurativa of multiple sites L73.2 Sebaceous cyst L72.3
[2024-07-01 11:54] VITALS: BP 146/88; PULSE 76; BMI 60.6
== END 2024-07-01 11:59 | disposition home or self-care (01) ==
PROVIDERS: PCP Internal Medicine; Visit Provider Surgery
DX: L73.2 Hidradenitis suppurativa (principal); L72.3 Sebaceous cyst
CPT/HCPCS: 99204

== ENCOUNTER 2024-07-01 11:43 | Outpatient (REF) | payer OTHER, SELFPAY ==
[2024-07-01 13:00] LABS: Estimated Average Glucose 177 mg/dL; Hemoglobin A1c % 7.8 % (<6.0)
[2024-07-01 13:26] LABS: Alanine Aminotransferase 39 U/L (0-31); Albumin Level 3.7 g/dL (3.5-5.0); Alkaline Phosphatase 82 U/L (39-117); Anion Gap 14 (12-20); Aspartate Amino Transferase 94 U/L (5-31); Bilirubin Total 0.4 mg/dL (0.0-1.0); Blood Urea Nitrogen 10 mg/dL (9-16); Calcium 9.6 mg/dL (8.4-10.2); Carbon Dioxide 27 mmol/L (22-29); Chloride 103 mmol/L (96-108); Cholesterol 174 mg/dL (<200); Estimated Glomerular Filt Rate > 60; Glucose Random 201 mg/dL (60-115); HDL Cholesterol 34 mg/dL (>40); LDL Cholesterol Calculated 108 mg/dL (<100); Potassium 3.8 mmol/L (3.3-5.1); Sodium 140 mmol/L (135-145); Total Protein 7.9 g/dL (6.5-8.0); Triglycerides 164 mg/dL (<150)
== END 2024-07-01 11:44 | disposition home or self-care (01) ==
LOC: HO.LAB 11:43
PROVIDERS: PCP Internal Medicine; Referring Provider Internal Medicine; Visit Provider Surgery
DX: E11.9 Type 2 diabetes mellitus without complications (principal); E78.00 Pure hypercholesterolemia, unspecified; G47.33 Obstructive sleep apnea (adult) (pediatric); I10 Essential (primary) hypertension; L73.2 Hidradenitis suppurativa; M54.50 Low back pain, unspecified
CPT/HCPCS: 36415; 80053; 80061; 83036; 99202

== ENCOUNTER 2024-12-05 14:28 | Outpatient (REF) | payer OTHER, SELFPAY ==
--- OUTSIDE RECORDS SUMMARY | 2024-12-05 14:50 | XMS_ITS | Continuity of Care Document ---
Author Organization [facility] Address [address] [place] [address] [address] [place] [address] Phone Care Team Providers Care Pathology Assistant Name Role Phone Unavailable Unavailable Unavailable Advance Directives Directive Yes / No Effective Date File Name No Information Encounters Encounter Description Practice Location Reason(s) For Visit Diagnoses Date Provider Providers Copied on Encounter [facility], [address] [place] [address] [address], [place], [address], [place] tel:[phone] [address] [place] [address] OFFICE No Information No Information Referring Provider: DONI MARTINEZ I, [address] [facility] [address], [place], [address]. tel:[phone] Family History Family Member Type Diagnosis Age At Onset No Information Payers Payer name Insurance type Covered constitution party ID Authoriza tion(s) [facility] SERV OPTIONS IND EMNITY [id number] HUMANA HMO [id number] Social History Type Description Quantity Date Captured Comments Sex Female Smoking Status No Information Chief Complaint And Reason For Visit No Information History Of Present Illness Encounter Date Complaint History Of Prese nt Illness No Information Instructions Date Instruction Additional Infor mation No Information Assessments Type Assessment Date No Information
--- OUTSIDE RECORDS SUMMARY | 2024-12-05 14:50 | XMS_ITS | Continuity of Care Document ---
Author Organization [facility] Address [address] [place] [address] Phone Care Team Providers Care Oral Communication Instructor Name Role Phone Franklin Ramírez MD Unavailable Unavailable Procedures Procedure Date Office/outpatient visit,formerly [facility] Office/outpatient visit,[facility] [place] [place] 2015 Advance Directives Directive Yes / No Effective Date File Name No Information Encounters Encounter Description Practice Location Reason(s) For Visit Diagnoses Date Provider Providers Copied on Encounter Office/outpat ient visit,[facility], [address], [place], [id number], [place] tel:[phone] [facility] No Information Darrell Reid. [address], [place], [place], [id number] , [place]. tel:[phone] Referring Provider: Lima Phillips MD, [address] [place], [address]. tel:[phone] Office/outpat ient visit,est, mod [facility], [address], [place], [place], [id number], [place] tel:[phone] [facility] No Information Tirso Nuñez. [address], [place], [place], [id number] , [place]. tel:[phone] Referring Provider: Lima Phillips MD, [address] [place], [address]. tel:[phone] Family History Family Member Type Diagnosis Age At Onset No Information Payers Payer name Insurance type Covered democrat ID Authoriza tirory(s) Medicare Part B Primary [id number] Medicaid Secondary [id number] Social History Type Description Quantity Date Captured [...]
--- OUTSIDE RECORDS SUMMARY | 2024-12-05 14:50 | XMS_ITS | Encounter Summary ---
Author Organization [employer] Address [address] [facility] [address] 7[address] [place] [address] Care Team Providers Care Chief Scientist Name Role Phone [facility] Primary Care Provider [phone] Reason for Visit * Reason Comments Med Refill Encounter Details Date Type Department Care Team ([facility] st Contact Info) Description 08/15/2023 Refill [facility] [address] [place] [address] [facility] [address] [place] [address] Hidradenitis suppurativa Social History Tobacco Use Types Packs/Day Years Used Date Smoking Tobacco: Every Day Cigarettes 0.5 22.1 Started: 2002 Passive Smoke Exposure: Past Smokeless Tobacco: Never Alcohol Use Standard Drinks/Week Comments Never 0 (1 standard drink = 0.6 oz pur e alcohol) Depression Answer Date Recorded Patient Health Questionnaire-9 Score 24 11/14/2022 Housing Stability Answer Date Recorded What is your housing situation today? I have shad marcleo 07/30/[address] you li ve. Do you have problems with any of the following? None of the above 07/30/2023 Food Insecurity Answer Date Recorded Within the past 12 months, y ou worried that your food would run out before you got money to buy more: Never True 07/30/2023 Within the past 12 months,th e food you bought just didn't last and you didn't have enough money to get more: Never True Transportation Answer Date Recorded In the past 12 months, has l ack of transportation kept you from medical appts, meetings, work or from getting things needed for daily living? No 07/30/2023 Utilities Answer Date Recorded In the past 12 months, has t he electric, gas, oil or water company threatened to shut off services in your home? No 07/30/2023 Depression Answer Date Recorded Patient Health Questionnaire-2 Score 6 11/14/2022 Comments Unknown Sex and Gender Information Value Date Recorded Sex Assigned at Female 08/14/2022 10:32 AM EDT Legal Sex Female 10:32 AM EDT Gender Identity Female 08/14/2022 10:32 AM EDT Sexual Orientation Straight 08/14/2022 10 :32 AM EDT documented as of this encounter Plan of Treatment Not on file documented as of this encounter Visit Diagnoses Diagnosis Hidradenitis suppurativa Hidradenitis documented in this encounter Additional Health Concerns Assessment Noted Time PHQ-9 Depression Total Score: 24 023 3:24 PM EST documented as of this encounter Care Teams Chief Scientist Relationship Specialty Start Date End Date Julianne Villarreal FNP [address] [place] [id number] PCP - General Family Medicine 06/09/22 06/08/24 documented as of this encounter
--- OUTSIDE RECORDS SUMMARY | 2024-12-05 14:50 | XMS_ITS | Encounter Summary ---
Author Organization [employer] Address [address] [place] [address] Care Team Providers Care Salesperson Furs Name Role Phone Unavailable Primary Care Provider Unavailabl e Reason for Visit * Reason Comments Med Refill Encounter Details Date Type Department Care Team ([facility] st Contact Info) Description 10/29/2024 Refill [facility] [address] [place] [address] [facility] [address] [place] [address] Dyspepsia Social History Tobacco Use Types Packs/Day Years [...] your housing situation today? I have shad marcelo 07/30/[address] you li [...] as of this encounter Visit Diagnoses Diagnosis Dyspepsia Dyspepsia and other specified disorders of function of stomach documented in this encounter Additional Health Concerns Assessment Noted Time PHQ-9 Depression Total Score: 24 023 3:24 PM EST documented as of this encounter
--- OUTSIDE RECORDS SUMMARY | 2024-12-05 14:50 | XMS_ITS | Encounter Summary ---
Author Organization [employer] Address [address] [place] [address] Care Team Providers Care Glue Spreader Name Role Phone Unavailable Primary Care Provider Unavailabl e Reason for Visit * Reason Comments Med Refill Encounter Details Date Type Department Care Team ([facility] st Contact Info) Description 08/05/2024 Refill [facility] [address] [place] [address] Janelle Alberto MD [address] [place] [address] Social History Tobacco Use Types Packs/Day Years [...] documented as of this encounter Visit Diagnoses Not on filedocumented in this encounter Additional Health Concerns Assessment Noted Time PHQ-9 Depression Total Score: 24 023 3:24 PM EST documented as of this encounter
--- OUTSIDE RECORDS SUMMARY | 2024-12-05 14:50 | XMS_ITS | Continuity of Care Document ---
Author Organization [facility] Address [address] [place] [id number] Care Team Providers Care Hot Cell Technician Name Role Phone No Information Unavailable Unavailable Advance Directives Directive Yes / No Effective Date File Name No Information Encounters Encounter Description Practice Location Reason(s) For Visit Diagnoses Date Provider Providers Copied on Encounter [facility], [address] [place] [address], [phone], No Information No Information Family History Family Member Type Diagnosis Age At Onset No Information Payers Payer name Insurance type Covered democrat ID Authoriza tion(s) No Information Social History Type Description Quantity Date Captured Comments Sex Female Smoking Status No Information Chief Complaint And Reason For Visit No Information History Of Present Illness Encounter Date Complaint History Of Prese nt Illness No Information Instructions Date Instruction Additional Infor mation No Information Assessments Type Assessment Date No Information
--- OUTSIDE RECORDS SUMMARY | 2024-12-05 14:50 | XMS_ITS | Clinical Summary ---
Author Organization [email or web address] Address [address] [facility] 7[address] [place] [address] Care Team Providers Care Magnet Maker Name Role Phone Unavailable Primary Care Provider Unavailabl e Allergies Active Allergy Reactions Criticality Noted Date Comments Aspirin 07/12/2017 Other reaction(s): Hives, Swelling of throat Levofloxacin 07/12/2017 Other reaction(s): C/O: itching, Rash Penicillins 07/12/2017 Other reaction(s): Hives, Swelling of throat Sulfadiazine 11/14/2022 Other reaction(s): C/O: itching, Rash Medications D3 Super Strength 50 MCG (1999 UT) capsule 3 Active ibuprofen 200 MG tablet 2 Active lamoTRIgine (LaMICtal) 25 MG tablet Take 1 tablet (25 mg) by mouth in the morning. 30 tablet 5 3 Active triamcinolone (Kenalog) 0.025 % creamIndications: Hidradenitis suppurativa APPLY TO AFFECTED AREA(S) TWICE A DAY 90 g 3 Active lisinopril-hydroC HLOROthiazide 20-25 MG tabletIndications :Primary hypertension TAKE 1 TABLET BY MOUTH EVERY MORNING 28 tablet 5 3 Active fluticasone (Flovent HFA) 110 MCG/ACT inhalerIndication s:Asthma, unspecified asthma severity, unspecified whether complicated, unspecified whether persistent INHALE 1 PUFF BY MOUTH TWICE A DAY DIRECTED RINSE MOUTH AFTER USE 12 g 2 3 Active metFORMIN (Glucophage) 500 MG tablet Take 1 tablet (500 mg) by mouth in the evening. 90 tablet 1 3 Active albuterol 108 (90 Base) MCG/ACT inhaler Inhale 2 puffs every 4 (four) hours if needed for wheezing. 8.5 g 1 3 Active Allergy Relief 10 MG tablet Take 1 tablet (10 mg) by mouth in the morning. 90 tablet 1 3 Active metFORMIN (Glucophage) 500 MG tablet Take 1 tablet (500 mg) by mouth with evening meal. 90 tablet 1 3 Active clindamycin (Clindagel) 1 % gelIndications:Ra sh APPLY TOPICALLY TO THE AFFECTED AREA TWICE A DAY IN A THIN LAYER 60 g 2 4 Active ketoconazole (NIZOral) 2 % shampooIndication s:Rash APPLY TO THE AFFECTED AREA DAILY LEAVE IN PLACE FOR 5 MINUTES AND THEN RINSE OFF WITH WATER 120 mL 2 4 Active ferrous gluconate (Fergon) 324 (38 Fe) MG tablet TAKE 1 TABLET BY MOUTH EVERY OTHER DAY 45 tablet 1 4 Active doxycycline (Vibra-Tabs) 100 MG tabletIndications :Hidradenitis suppurativa TAKE 1 TABLET BY MOUTH EVERY NIGHT AT BEDTIME 28 tablet 4 Active omeprazole (PriLOSEC) [address] capsuleIndication s:Dyspepsia TAKE 1 CAPSULE BY MOUTH DAILY BEFORE MEALS 28 capsule 5 4 Active metoprolol succinate XL (Toprol-XL) 50 MG 24 hr tablet TAKE 1 TABLET BY MOUTH DAILY 28 tablet 1 4 Active Active Problems Problem Noted Date Diagnosed Date Apnea 11/02/2022 Overview (11/19/2022): ?? Sleep study completed at [facility] 11/02/2022 Overview (11/19/2022): Pap: Prior screening unknown, will schedule today Mammogram: Routine age 38 BMD: Routine age 63 CRC: Routine age 43 Vision: Discuss at f/u Dental: Discuss at f/u HIV: negative 08/2022 Hepatitis: negative 08/2022, needs Hep B vaccine Screening Labs: A1c-5.6 08/2022 Elevated liver enzymes 11/02/2022 Overview (11/19/2022): ?? Persistent mild liver enzyme <2x ULN ?? Negative hepatitis serology ?? Presumed fatty liver, no ultrasound on file Asthma, mild persistent 11/02/2022 Overview (11/02/2022): - Flovent b.i.d - Albuterol PRN -Currently well managed Hidradenitis suppurativa 08/12/2022 Hypertensive disorder 08/12/2022 Overview (11/19/2022): ?? Lisinopril 20mg ?? HCTZ 25mg ?? Metoprolol ER 50mg Maintenance: BMP: 08/2022, elevated liver enzymes, otherwise WNL Lipid Panel: 08/2022 ASCVD Risk: 2.6%, not on statin EKG: Obtain baseline at f/u - Aerobic exercise to reduce BP. Initial goal of 30 min walk 3-5x/week. Increase as tolerated. - low-sodium diet (goal: <2g/day) and heart healthy diet such as DASH to reduce BP and prevent ASCVD. - Home BP monitoring 1-2 x day with goal of <140/90. - Seek immediate medical attention for chest pain, palpitations, SOB, syncope, or sudden changes in mental status. - Do not change or discontinue current prescriptions without first consulting health care provider Assessment & Plan (11/19/2022 11:29 AM EST): BP elevated in office. Patient did not take BP medications today. Reports home BP typically well controlled. Denies current chest pain, shortness of breath, dizziness. ?? Pt to take BP medications at home ?? Continue to monitor home readings ?? RN BP check in 2 weeks Hyperthyroidism 08/07/2018 Overview (11/02/2022): - Followed by [facility] endocrinology, last seen 01/2022. 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 Overview (11/19/2022): - Bipolar disorder - Does not see therapist-on waiting list - lamotrigine 25mg daily, no current psych prescriber Severe obesity 07/12/2017 Recurrent major depression in partial remission 07/12/2017 Resolved Problems Problem Noted Date Diagnosed Date Resolved Date Mild intermittent asthma 07/12/2017 Encounters Date Type Department Care Team Description 11/26/2024 Refill [facility] [address] [place] [address] [facility] Dyspepsia 10/29/2024 Refill [facility] [address] [place] [address] [facility] Dyspepsia 10/01/2024 Refill [facility] [address] [place], [place] [id number] Janelle Alberto MD 09/05/2024 Refill [facility] [address] [place] [address] [facility] Hidradenitis suppurativa from Last 3 Months Immunizations Name Administration Dates Next Due Pfizer Covid-19 Vaccine 12+ Bivalent 10/27/2022 Social History Tobacco Use Types Packs/Day Years [...] Orientation Straight 08/14/2022 10 :32 AM EDT Last Filed Vital Signs Vital Sign Reading Time Taken Comments Blood Pressure 146/85 03/05/2023 6:20 PM EDT Pulse 106 03/05/2023 6:20 PM EDT Temperature 36.8 ??C (98.3 ??F) 03/05/2023 6:20 PM ED T Respiratory Rate 20 03/05/2023 6:20 PM EDT Oxygen Saturation 94% 11/14/2022 3:21 PM EST Inhaled Oxygen Concentration - - Weight 158 kg (347 lb 9.6 oz) 03/05/2023 6:20 PM EDT Height 165.1 cm (5' 5 ) 03/05/2023 6:20 PM EDT Body Mass Index 57.84 03/05/2023 6:20 PM EDT Plan of Treatment Health Maintenance Due Date Last Done Comments Alcohol/Substance Use Screening 1995 Family Planning (PISQ) 1998 Hepatitis B Vaccines (1 of 3 - 19+ 3-dose series) 2002 Pneumococcal Vaccine: Pediatrics (0 to 5 Years) and At-Risk Patients (6 to 49) Years) (1 of 2 - PCV) 2002 Pap Smear 2004 Cervical Cancer Screening 2013 HPV/Cotest 2013 Depression Monitoring (PHQ-9) 05/14/2023 11/14/2022, 11/14/2022 DTaP/Tdap/Td Vaccines (2 - Td or Tdap) 07/01/2023 07/01/2013 Mammogram 2023 08/28/2019 Depression Screening 11/14/2023 11/14/2022, 01/31/20 23 SDOH Screening 11/14/2023 11/14/2022 Tobacco Screening 03/05/2024 03/05/2023 COVID-19 Vaccine ( season) 2024 10/27/2022, 12/19/2021, 08/24/2021 Influenza Vaccine (#1) 2024 2, 08/24/2021, 08/06/2018, Additional history exists Lipid Panel 10/27/2027 10/27/2022 Zoster Vaccines (1 of 2) 2033 RSV Patients and Patients Aged 60 years or older (1 - 1-dose 75+ series) 2058 Hepatitis C Screening Completed 06/01/2020 HIV Screening Completed 10/27/2022, 06/01/2020 HIB Vaccines Aged Out No longer eligi ble based on patient's age to complete this topic HPV Vaccines Aged Out No longer eligi ble based on patient's age to complete this topic Hepatitis A Vaccines Aged Out No long er eligible based on patient's age to complete this topic IPV Vaccines Aged Out No longer eligi ble based on patient's age to complete this topic Meningococcal Vaccine Aged Out No danna olesya eligible based on patient's age to complete this topic RSV under 20 months Aged Out No longe r eligible based on patient's age to complete this topic Rotavirus Vaccines Aged Out No longer eligible based on patient's age to complete this topic Procedures Procedure Name Priority Date/Time Associated Diagnosis Comments HIV 1/2 ANTIGEN/ANTIBODY, FOURTH GENERATION W/RFL Routine 10/27/2022 2:29 PM EST LIPID PANEL, STANDARD Routine 10/27/2022 2:29 PM EST [facility] HISTORICAL HEPATITIS C AB W/REFL TO HCV RNA, QN, PCR Routine 06/01/2020 2:02 PM EDT BI MAMMOGRAM DIAGNOSTIC BILATERAL Routine 08/28/2019 4:16 PM EST from Last 3 Months or Most Recently Relevant to Health Maintenance Results * HIV-1/2 Antigen and Antibodies, Fourth Generation, with Reflexes (10/27/2022 2:29 PM EST) [facility] HIV Antigen/Antibody, 4th Generation NON-REAC TIVE NON-REAC TIVE [facility] Comment: HIV-1 antigen and HIV-1/HIV-2 antibodies were not detected. There is no laboratory evidence of HIV infection. PLEASE NOTE: This information has been disclosed to you from records whose confidentiality may be protected by state law. ??If your state requires such protection, then the state law prohibits you from making any further disclosure of the information without the specific written consent of the person to whom it pertains, or as otherwise permitted by law. A general authorization for the release of medical or other information is NOT sufficient for this purpose. ?? For additional information please refer to http://education.Gingr/faq/PYG367 (This link is being provided for informational/ educational purposes only.) The performance of this assay has not been clinically validated in patients less than 2 years old. 10/27/2022 2:29 PM EST 10/27/2022 2:30 PM EST Narrative [facility] - 10/30/2022 4:26 PM EST FASTING:UNKNOWN FASTING: UNKNOWN [facility] LAB BLOOD ORDERABLES Final Re sult [facility] [address], [place] [address] [facility] [address] [facility], ([address]) [place] [address] * (ABNORMAL) Lipid Panel, Standard (10/27/2022 2:29 PM EST) [facility] Cholesterol, Total 155 <200 mg/dL [facility] HDL Cholesterol 48(L) > OR = 50 mg/dL [facility] Triglycerides 200(H) <150 mg/dL [facility] Comment: If a non-fasting specimen was collected, consider repeat triglyceride testing on a fasting specimen if clinically indicated. Miguel et al. J. of Clin. Lipidol. 2015;9:129-169. LDL Cholesterol 77 mg/dL (calc) [facility] Comment: Reference range: <100 Desirable range <100 mg/dL for primary prevention; ?? <70 mg/dL for patients with CHD or diabetic patients with > or = 2 CHD risk factors. LDL-C is now calculated using the Cristina calculation, which is a validated novel method providing better accuracy than the Friedewald equation in the estimation of LDL-C. Jeffrey ROSENBAUM et al. ANN. 2013;310(19): 9686-0501 (http://mediaBunker.Socialite/faq/OXC955) Chol/HDLC Ratio 3.2 <5.0 (calc) [facility] Non-HDL Cholesterol 107 <130 mg/dL (calc) [facility] Comment: For patients with diabetes plus 1 major ASCVD risk factor, treating to a non-HDL-C goal of <100 mg/dL (LDL-C of <70 mg/dL) is considered a therapeutic option. 10/27/2022 2:29 PM EST 10/27/2022 2:30 PM EST Narrative [facility] - 10/30/2022 4:26 PM EST FASTING:UNKNOWN FASTING: UNKNOWN [facility] LAB BLOOD ORDERABLES Final Re sult [facility] [address] [facility], [facility], [place] [address] [facility] [employer] [address] [facility], ([address]) [place] [address] * HEPATITIS C AB W/REFL TO HCV RNA, QN, PCR (06/01/2020 2:02 PM EDT) HEPATITIS C ANTIBODY NON-REACT SERG[facility] NON-REACT [facility] INDEX 0.05 <1.00 [facility] Comment: ?? HCV antibody was non-reactive. There is no laboratory ?? evidence of HCV infection. ?? In most cases, no further action is required. However, if recent HCV exposure is suspected, a test for HCV RNA (test code 94266) is suggested. ?? For additional information please refer to http://mediaBunker.Gingr/faq/KDL72e2 (This link is being provided for informational/ educational purposes only.) ?? HEPATITIS C ANTIBODY NON-REACT SERGIO NON-REACT SERGIO [facility] INDEX 0.05 <1.00 [facility] Comment: ?? HCV antibody was non-reactive. There is no laboratory ?? evidence of HCV infection. ?? In most cases, no further action is required. However, if recent HCV exposure is suspected, a test for HCV RNA (test code 08012) is suggested. ?? For additional information please refer to http://education.Gingr/faq/UEG80y3 (This link is being provided for informational/ educational purposes only.) ?? 06/01/2020 2:02 PM EDT Gwendolyn Gaming MD HISTORICAL/NON ORDERABLE LABS Final Result [facility] [address] * 3D BILATERAL DIAGN MAMMO 1 (08/28/2019 4:16 PM EST) Anatomical Region Laterality Modality Breast Bilateral Mammography 08/28/2019 4:16 PM EST Narrative 08/28/2019 4:17 PM EST Refer to the Notes tab for result details [facility] Procedure: 3D BILATERAL DIAGN MAMMO 1 Procedure Note Provider, MD Bibiana - 01/06/2023 Refer to the Notes tab for result details [facility] Procedure: 3D BILATERAL DIAGN MAMMO 1 Gwendolyn Gaming MD IMG BI PROCEDURES Final Result from Last 3 Months or Most Recently Relevant to Health Maintenance Insurance [facility]
--- OUTSIDE RECORDS SUMMARY | 2024-12-05 14:50 | XMS_ITS | Encounter Summary ---
Author Organization [employer] Address [address] [place] [address] Care Team Providers Care Noise Tester Name Role Phone Unavailable Primary Care Provider Unavailabl e Reason for Visit * Reason Comments Med Refill Encounter Details Date Type Department Care Team ([facility] st Contact Info) Description 10/01/2024 Refill [facility] [address] [place] [address] Janelle Alberto MD [address] [place] [address] Social History Tobacco Use Types Packs/Day Years [...]
--- OUTSIDE RECORDS SUMMARY | 2024-12-05 14:50 | XMS_ITS | Encounter Summary ---
Author Organization [email or web address] Address [address] [place] [address] Care Team Providers Care Hammer Driver Name Role Phone Unavailable Primary Care Provider Unavailabl e Reason for Visit * Reason Comments Med Refill Encounter Details Date Type Department Care Team ([facility] st Contact Info) Description 07/08/2024 Refill [facility] [address] [place] [address] Janelle Alberto MD [address] [place] [address] Social History Tobacco Use Types Packs/Day Years [...]
--- OUTSIDE RECORDS SUMMARY | 2024-12-05 14:50 | XMS_ITS | Encounter Summary ---
Author Organization [employer] Address [address] [facility] 7[address] [place] [address] Care Team Providers Care Grass Farm Laborer Name Role Phone [place] [facility] Primary Care Provider [phone] Reason for Visit * Reason Onset Date Comments Appointment Request 01/03/2023 Encounter Details Date Type Department Care Team ([facility] st Contact Info) Description 01/03/2023 Telephone [facility] [address] [place] [address] [facility] [address] [place] [address] Appointment Request Social History Tobacco Use Types Packs/Day Years Used Date Smoking Tobacco: Every Day Cigarettes Smokeless Tobacco: Never Alcohol Use Standard Drinks/Week Comments Never 0 (1 standard drink = 0.6 oz pur e alcohol) Depression Answer Date Recorded Patient Health Questionnaire-9 Score 24 11/14/2022 Depression Answer Date Recorded Patient Health Questionnaire-2 Score 6 11/14/2022 Comments Unknown Sex and Gender Information Value Date Recorded Sex Assigned at Female 08/14/2022 10:32 AM EDT Legal Sex Female 10:32 AM EDT Gender Identity Female 08/14/2022 10:32 AM EDT Sexual Orientation Straight 08/14/2022 10 :32 AM EDT documented as of this encounter Miscellaneous Notes * Telephone Encounter - Obdulia Garcia - 01/03/2023 2:06 PM EDT Tc from pt requesting to r/s canceled pap appt . States was unable to make it today due to her kidsbeing sick and no one able to watch them . documented in this encounter Plan of Treatment Not on file documented as of this encounter Visit Diagnoses Not on filedocumented in this encounter Additional Health Concerns Assessment Noted Time PHQ-9 Depression Total Score: 24 023 3:24 PM EST documented as of this encounter Care Teams Grass Farm Laborer Relationship Specialty Start Date End Date Julianne Villarreal FNP [address] [place] [id number] PCP - General Family Medicine 06/09/22 06/08/24 documented as of this encounter
--- OUTSIDE RECORDS SUMMARY | 2024-12-05 14:50 | XMS_ITS | Encounter Summary ---
Author Organization [employer] Address [address] [place] [address] Care Team Providers Care Resource Technician Name Role Phone Unavailable Primary Care Provider Unavailabl e Reason for Visit * Reason Comments Med Refill Encounter Details Date Type Department Care Team ([facility] st Contact Info) Description 09/05/2024 Refill [facility] & PEDS [address] [place] [address] [facility] [address] [place] [address] Hidradenitis suppurativa Social History Tobacco Use Types [...]
--- OUTSIDE RECORDS SUMMARY | 2024-12-05 14:50 | XMS_ITS | Encounter Summary ---
Author Organization [employer] Address [address] [place] [address] Care Team Providers Care Contract Graphic Designer Name Role Phone Unavailable Primary Care Provider Unavailabl e Reason for Visit * Reason Comments Med Refill Encounter Details Date Type Department Care Team ([facility] st Contact Info) Description 11/26/2024 Refill [facility] [address] [place] [address] [facility] [address] [place] [address] Dyspepsia Social History Tobacco Use Types Packs/Day [...]
--- OUTSIDE RECORDS SUMMARY | 2024-12-05 14:50 | XMS_ITS | Encounter Summary ---
Author Organization [employer] Address [address] [place] [address] Care Team Providers Care Engine Dynamometer Tester Name Role Phone Unavailable Primary Care Provider Unavailabl e Reason for Visit * Reason Comments Med Refill Encounter Details Date Type Department Care Team ([facility] st Contact Info) Description 09/02/2024 Refill [facility] [address] [place] [address] Janelle Alberto MD [address] [place] [address] Social History Tobacco Use Types Packs/Day Years [...]
--- OUTSIDE RECORDS SUMMARY | 2024-12-05 14:50 | XMS_ITS | Clinical Summary ---
Author Organization [facility] Address [address] [place] [address] Care Team Providers Care Editorial Writer Name Role Phone Unavailable Primary Care Provider Unavailabl e Social History Tobacco Use Types Packs/Day Years Used Date Smoking Tobacco: Never Assessed Comments Unknown Sex and Gender Information Value Date Recorded Sex Assigned at Not on file Legal Sex Female 5:47 AM EST Gender Identity Not on file Sexual Orientation Not on file Plan of Treatment Health Maintenance Due Date Last Done Comments Breast Cancer Screening 1983 DTaP,Tdap,and Td Vaccines (1 - Tdap) 2002 Hepatitis B Vaccines (1 of 3 - 19+ 3-dose series) 2002 Cervical Cancer Screening: P ap Smear 2004 COVID-19 Vaccine (2023-2 5 season) 2024 Influenza Vaccine (#1) 2024 HIB Vaccines Aged Out No longer eligi [...] on patient's age to complete this topic MMR Vaccines Aged Out No longer eligi ble based on patient's age to complete this topic Meningococcal ACWY Vaccine Aged Out N o longer eligible based on patient's age to complete this topic Meningococcal B Vacine Aged Out No lo nger eligible based on patient's age to complete this topic Pneumococcal Vaccine: Pediat rics (0 to 5 Years) and At-Risk Patients (6 to 64 Years) Aged Out No longer eligible b ased on patient's age to complete this topic RSV Immunization Patients Un yong 20 months Aged Out No longer eligible b ased on patient's age to complete this topic Varicella Vaccines Aged Out No longer eligible based on patient's age to complete this topic
[2024-12-05 16:11] LABS: Estimated Average Glucose 140 mg/dL; Hemoglobin A1c % 6.5 % (<6.0); Total Hemoglobin (HGBA1C) 2732.5219 umol/L
[2024-12-05 16:54] LABS: Creatinine Urine 365.75 mg/dL; Microalbum/Creatinine Ratio Ur 9.8 ug/mg cr (<30)
[2024-12-05 16:54] LABS: Alanine Aminotransferase 60 U/L (0-31); Albumin Level 3.7 g/dL (3.5-5.0); Alkaline Phosphatase 83 U/L (39-117); Anion Gap 15 (12-20); Aspartate Amino Transferase 163 U/L (5-31); Bilirubin Total 0.6 mg/dL (0.0-1.0); Blood Urea Nitrogen 9 mg/dL (9-16); Calcium 9.5 mg/dL (8.4-10.2); Carbon Dioxide 23 mmol/L (22-29); Chloride 103 mmol/L (96-108); Cholesterol 192 mg/dL (<200); Estimated Glomerular Filt Rate > 60; Glucose Random 179 mg/dL (60-115); HDL Cholesterol 37 mg/dL (>40); Potassium 3.9 mmol/L (3.3-5.1); Sodium 137 mmol/L (135-145); Total Protein 9.1 g/dL (6.5-8.0)
[2024-12-05 17:04] LABS: LDL Cholesterol Calculated 114 mg/dL (<100); Triglycerides 209 mg/dL (<150)
== END 2024-12-05 14:29 | disposition home or self-care (01) ==
LOC: HO.LAB 14:28
PROVIDERS: PCP Internal Medicine; Visit Provider Internal Medicine
DX: Z00.01 Encounter for general adult medical examination with abnormal findings (principal); E11.65 Type 2 diabetes mellitus with hyperglycemia; E66.01 Morbid (severe) obesity due to excess calories; E78.00 Pure hypercholesterolemia, unspecified; F32.9 Major depressive disorder, single episode, unspecified; G47.33 Obstructive sleep apnea (adult) (pediatric)
CPT/HCPCS: 36415; 80053; 80061; 82043; 82570; 83036

== ENCOUNTER 2025-06-18 15:25 | Outpatient (AMB) | payer OTHER, SELFPAY ==
--- NOTE | 2025-06-18 15:27 | MHC.OFFVIS ---
Vital Signs 06/18/25 15:29 Height 5 ft 5 in Weight 339 lb 1.135 oz BMI 56.4 BP 146/80 H Blood Pressure Location Rt brachial Position Sitting Pulse 104 H Pulse Source Monitor Intake Visit Reasons: f/u County Program Technician Required: No Accompanied by: Spouse Allergies aspirin (ASA) Allergy (Unknown, Verified 06/18/25 15:32) HIVES levofloxacin (From LEVAQUIN) Allergy (Unknown, Verified 06/18/25 15:32) RASH penicillin G Allergy (Unknown, Verified 06/18/25 15:32) Unknown Penicillins (PCN) Allergy (Unknown, Verified 06/18/25 15:32) HIVES Sulfa (Sulfonamide Antibiotics) (SULFA (SULFONAMIDE ANTIBIOTICS)) Allergy (Unknown, Verified 06/18/25 15:32) ITCHING Aspir-81 Allergy (Unknown, Uncoded 06/18/25 15:32) Unknown Sulfa Allergy (Unknown, Uncoded 06/18/25 15:32) Unknown SURGICAL TAPE Allergy (Unknown, Uncoded 06/18/25 15:32) UNKNOWN Medication List - Last Reconciled 06/18/25 by SUZANNE Gilbert albuterol sulfate 5 mg inhalation Q4H PRN albuterol sulfate 90 mcg/actuation 2 puffs PO Q4-6H PRN atorvastatin 10 mg PO DAILY blood pressure test kit-large As directed doxycycline hyclate 100 mg PO DAILY fluticasone propionate 110 mcg/actuation 110 mcg inhalation ONCE PRN inhalational spacing device As directed ketoconazole 2% 1 appl topical 2XW loratadine (Claritin) 10 mg PO DAILY losartan-hydrochlorothiazide 100-25 mg 1 tab PO DAILY metoprolol succinate ER 50 mg PO DAILY omeprazole 20 mg PO DAILY sitagliptin phos-metformin 50-1,000 mg (Janumet) 1 tab PO BID triamcinolone acetonide 0.025% appl topical HPI HPI f/u: Details: Danielle is a 39-year-old female with past medical history of morbid obesity, hypertension, diabetes, smoking, who presents for follow-up. Her last prior visit was 06/05/2023. At that time she reported chest discomfort and heart palpitations and a nuclear stress test, echocardiogram and cardiac event monitor were ordered however not completed by her. Today she reports that she has significant issues with hidradenitis suppurative and is hoping to have surgery on her under arms and back of her neck. She needs surgical re-evaluation as her last visit with them was also 2 years ago. She continues to have episodes of left-sided chest discomfort that can occur at rest and with physical activity. She says it is a tightness that has been worsening with time. She also gets sharp pains that she feels with heart palpitations. Her palpitations occur most weeks and feels like her heart is beating irregular. She has chronic shortness of breath with activity. She admits to being mostly sedentary due to low back and bilateral knee pains. No lightheadedness, presyncope, syncope, falls. Her sleep apnea remains untreated. She tells me that she takes her diabetic and blood pressure medications. [facility] Medical History Bipolar 1 disorder PTSD (post-traumatic stress disorder) Depression DJD (degenerative joint disease) Asthma Diabetes Obstructive sleep apnea Morbid obesity HTN (hypertension) Vitamin D deficiency Multinodular thyroid Graves disease Surgical History Hx of tubal ligation History of excision of pilonidal cyst History of 2 sections Family History Father Hypertension Mother Hypertension Diabetes Maternal Grandmother Ovarian cancer Mother Uterine cancer Social History Alcohol intake: current Alcohol intake frequency: holidays/special occasions only Patient Tobacco Use Status: Current everyday Tobacco user Cigarettes Per Day: 5 Female Reproductive History Menstrual Age of Menarche: 11 Review of Systems Const All systems reviewed & are unremarkable except as noted in HPI and below ENT Details: recent root canal with discomfort Denies dizziness Card Details: heart palpitations, irregularity Reports chest pain, Reports chest pain at rest, Reports chest pain with activity, Denies rapid heart rate, Denies pedal edema, Denies edema, Denies leg edema, Denies lightheadedness, Denies palpitations, Reports dyspnea, Reports dyspnea on exertion and Reports orthopnea Resp Denies cough, Reports dyspnea and Reports dyspnea on exertion GI Denies hematochezia and Denies change in stool character Musc Reports abnormal gait (related to obesity, knee and back pain), Reports limited range of motion, Denies muscle cramps, Denies muscle weakness, Denies numbness, Denies radiating pain into limb, Denies stiffness and Denies tingling Neuro Reports abnormal gait (related to obesity, knee and back pain), Denies dizziness, Denies numbness and Denies tingling Endo Denies palpitations Physical Exam Vital Signs: Last Vital Signs Pulse 104 H 06/18/25 15:29 BP 146/80 H 06/18/25 15:29 BMI result Body Mass Index 56.4 Const Other: morbidly obese General: cooperative and no acute distress Orientation/consciousness: patient oriented x3 Neck Neck: Yes normal visual inspection Resp Effort & Inspection: normal respiratory effort Auscultation: clear to auscultation bilaterally, no rales, no rhonchi and no wheezes Cardio Rate: regular rate Rhythm: regular rhythm Heart sounds: S1 normal heart sound present, S2 normal heart sound present, no gallops, no murmurs and no rubs Neuro General: patient oriented x3 Extrem General: Yes normal to inspection, No no pedal edema and No calf tenderness Psych Appearance: grossly normal Mental Status: mental status grossly normal Speech and movement: Normal speech and movement present Office Procedures EKG Details: Today, read by me, sinus tachycardia, right atrial enlargement, nonspecific ST abnormality, rate 103, QTC 468 milliseconds [id number], Complete Assessment & Plan Assessment & Plan (1) Chest discomfort: Code(s): R07.89 - Other chest pain Category: Medical Plan: Reports of chest discomfort with some atypical and typical features. She does have cardiac risk factors of morbid obesity, smoking, hypertension, diabetes. EKG today shows sinus tachycardia, no ischemia, rate 103. Will check a pharmacological nuclear stress test. She will not be able to walk on the treadmill due to knee and back pain, morbid obesity. Will check an echocardiogram to assess for structural heart disease. Signs and symptoms of angina reviewed with her. Discussed cardiac risk factor modification. Cardiology follow-up in 2 months, sooner if needed. (2) Shortness of breath: Code(s): R06.02 - Shortness of breath Category: Medical Plan: Shortness of breath with activity which can be multifactorial in the setting of her morbid obesity, sedentary lifestyle, smoking. Cardiac evaluation as above. (3) HTN (hypertension): Code(s): I10 - Essential (primary) hypertension Category: Medical Plan: Blood pressure goal less than 130/80. Elevated today. At present will have her continue current medications including lisinopril/hydrochlorothiazide and metoprolol XL. Will obtain cardiac evaluation and determine plan of care. (4) Obstructive sleep apnea: Code(s): G47.33 - Obstructive sleep apnea (adult) (pediatric) Category: Medical Plan: History of obstructive sleep apnea, not able to wear CPAP due to claustrophobia. (5) Palpitations: Code(s): R00.2 - Palpitations Category: Medical Plan: Report of heart palpitations like her heart is beating irregularly, making her gasp at times. She could be feeling extrasystoles. Will check a 7 day Holter monitor to assess for arrhythmia. (6) Morbid obesity: Code(s): E66.01 - Morbid (severe) obesity due to excess calories Category: Medical Plan: She would benefit greatly from weight loss. She is aware of this and states she is going to start working on her health. Plan Time spent on chart review, documentation, interview and assessment Orders: Orders ECG 7 day holter monitor Today R00.2 - Palpitations CA lexiscan stress w savannah Today E66.01 - Morbid (severe) obesity due to excess calories, I10 - Essential (primary) hypertension, R07.89 - Other chest pain NM cardiolite stress test Today E66.01 - Morbid (severe) obesity due to excess calories, I10 - Essential (primary) hypertension, R07.89 - Other chest pain CA echo transthoracic complete Today E66.01 - Morbid (severe) obesity due to excess calories, R07.89 - Other chest pain Coding Level of Care Code Est Pt Level 4 (69066) Complex EM visit Add On G2211 Diagnoses Chest discomfort R07.89 Shortness of breath R06.02 HTN (hypertension) I10 Obstructive sleep apnea G47.33 Palpitations R00.2 Morbid obesity E66.01 CPT Codes EKG - CPT: [id number], Complete ([id number]) Time Spent (min) 32
[2025-06-18 15:29] VITALS: BP 146/80; PULSE 104; BMI 56.4
--- OUTSIDE RECORDS SUMMARY | 2025-06-18 16:24 | XMS_ITS | Encounter Summary ---
Author Organization [employer] Address [address] [place] [address] Care Team Providers Care Loading Machine Operator Helper Name Role Phone Unavailable Primary Care Provider Unavailabl e Reason for Visit * Reason Comments Med Refill Encounter Details Date Type Department Care Team ([facility] st Contact Info) Description 10/29/2024 Refill [facility] CHC MED & PEDS [address] [place] [address] [facility] [address] [place] [address] Dyspepsia Social History Tobacco Use Types Packs/Day Years Used Date Smoking Tobacco: Every Day Cigarettes 0.5 22.7 Started: 2002 Passive Smoke Exposure: Past Smokeless [...]
--- OUTSIDE RECORDS SUMMARY | 2025-06-18 16:24 | XMS_ITS | Clinical Summary ---
Author Organization [employer] Address [address] [place] [address] Care Team Providers Care Supervisor Electrolytic Tinning Name Role Phone Unavailable Primary Care Provider [...] Date Diagnosed Date Apnea 11/02/2022 Overview (11/19/2022): Sleep study completed at [facility] 11/02/2022 Overview (11/19/2022): Pap: Prior screening unknown, will schedule today Mammogram: Routine age 38 BMD: Routine age 63 CRC: Routine age 43 Vision: Discuss at f/u Dental: Discuss at f/u HIV: negative 08/2022 Hepatitis: negative 08/2022, needs Hep B vaccine Screening Labs: A1c-5.6 08/2022 Elevated liver enzymes 11/02/2022 Overview (11/19/2022): Persistent mild liver enzyme <2x ULN Negative hepatitis serology Presumed fatty liver, no ultrasound on file Asthma, mild persistent 11/02/2022 Overview (11/02/2022): - Flovent b.i.d - Albuterol PRN -Currently well managed Hidradenitis suppurativa 08/12/2022 Hypertensive disorder 08/12/2022 Overview (11/19/2022): Lisinopril 20mg HCTZ 25mg Metoprolol ER 50mg Maintenance: BMP: 08/2022, elevated [...] current chest pain, shortness of breath, dizziness. Pt to take BP medications at home Continue to monitor home readings RN BP check in 2 weeks Hyperthyroidism 08/07/2018 Overview (11/02/2022): - Followed by [facility] endocrinology, last seen 01/2022. Per visit note [...] Date Resolved Date Mild intermittent asthma 07/12/2017 Immunizations Immunization Administration Dates Next Due Pfizer Covid-19 Vaccine [...] 106 03/05/2023 6:20 PM EDT Temperature 36.8 C (98.3 F) 03/05/2023 6:20 PM EDT Respiratory Rate 20 03/05/2023 6:20 PM EDT Oxygen Saturation 94% 11/14/2022 3:21 PM EST Inhaled Oxygen Concentration - - Weight 158 kg (347 lb 9.6 oz) 03/05/2023 6:20 PM EDT Height 165.1 cm (5' 5 ) 03/05/2023 6:20 PM EDT Body Mass Index 57.84 03/05/2023 6:20 PM EDT Plan of Treatment Health Maintenance Due Date Last Done Comments Disability Screening 1983 Alcohol/Substance Use Screening 1995 Family Planning (PISQ) 1998 HPV Vaccines (1 - 3-dose series) 1998 Hepatitis B Vaccines (1 of 3 - 19+ 3-dose series) 2002 Pneumococcal Vaccine: Pediatrics (0 to 5 Years) and At-Risk Patients (6 to 49) Years (1 of 2 - PCV) 2002 Pap Smear 2004 Cervical Cancer Screening 2013 HPV/Cotest 2013 Depression Monitoring 05/14/2023 11/14/2022, 023 DTaP/Tdap/Td Vaccines (2 - Td or Tdap) 07/01/2023 07/01/2013 Mammogram 2023 08/28/2019 SDOH Screening 11/14/2023 11/14/2022 Tobacco Screening 03/05/2024 03/05/2023 COVID-19 Vaccine ( season) 2025 10/27/2022, 12/19/2021, 08/24/2021 Influenza Vaccine (#1) 2025 , 08/24/2021, 08/06/2018, Additional history exists Lipid Panel [...] age to complete this topic Meningococcal B Vaccine Aged Out No l onger eligible based on patient's age to complete [...] Generation, with Reflexes (10/27/2022 2:29 PM EST) HIV Antigen/Antibody, 4th Generation NON-REAC TIVE NON-REAC TIVE [facility] Comment: HIV-1 antigen and HIV-1/HIV-2 antibodies were not detected. There is no laboratory evidence of HIV infection. PLEASE NOTE: This information has been disclosed to you from records whose confidentiality may be protected by state law. If your state requires such protection, then the state law prohibits you from making any further disclosure of the information without the specific written consent of the person to whom it pertains, or as otherwise permitted by law. A general authorization for the release of medical or other information is NOT sufficient for this purpose. For additional information please refer to http://education.[employer]ide Systems.Jemstep/faq/WJU541 (This link is being provided for informational/ educational purposes only.) The performance of this assay has not been clinically validated in patients less than 2 years old. 10/27/2022 2:29 PM EST 10/27/2022 2:30 PM EST Narrative [facility] - 10/30/2022 4:26 PM EST FASTING:UNKNOWN FASTING: UNKNOWN [facility] LAB BLOOD ORDERABLES Final Re sult [facility] [address] [place] [address] [facility] [place] [facility] [address], [address]) [place] [address] * (ABNORMAL) Lipid Panel, Standard (10/27/2022 2:29 PM EST) Cholesterol, Total 155 <200 mg/dL [facility] [place] [facility] HDL Cholesterol 48(L) > OR = 50 mg/dL [facility] [place] [facility] Triglycerides 200(H) <150 mg/dL [facility] [place] [facility] Comment: If a non-fasting specimen was collected, consider repeat triglyceride testing on a fasting specimen if clinically indicated. Miguel et al. J. of Clin. Lipidol. 2015;9:129-169. LDL Cholesterol 77 mg/dL (calc) [facility] [place] [facility] Comment: Reference range: <100 Desirable range <100 mg/dL for primary prevention; <70 mg/dL for patients with CHD or diabetic patients with > or = 2 CHD risk factors. LDL-C is now calculated using the Jeffrey-Jose Carlos calculation, which is a validated novel method providing better accuracy than the Friedewald equation in the estimation of LDL-C. Jeffrey ROSENBAUM et al. ANN. 2013;310(19): 0998-1553 (http://education.BioGreen [employer].Jemstep/faq/WXL449) Chol/HDLC Ratio 3.2 <5.0 (calc) [facility] [place] [facility] Non-HDL Cholesterol 107 <130 mg/dL (calc) [facility] [place] [facility] Comment: For patients with diabetes plus 1 major ASCVD risk factor, treating to a non-HDL-C goal of <100 mg/dL (LDL-C of <70 mg/dL) is considered a therapeutic option. 10/27/2022 2:29 PM EST 10/27/2022 2:30 PM EST Narrative [facility] - 10/30/2022 4:26 PM EST FASTING:UNKNOWN FASTING: UNKNOWN [facility] LAB BLOOD ORDERABLES Final Re sult Performing Organization Address City/[facility]/ZIP Co de Phone Number [facility] [address] [place] [address] [facility] [address], [address]) [place] [address] * HEPATITIS C AB W/REFL TO HCV RNA, QN, PCR (06/01/2020 2:02 PM EDT) HEPATITIS C ANTIBODY NON-REACT SERGIO NON-REACT SERGIO [facility] INDEX 0.05 <1.00 [facility] Comment: HCV antibody was non-reactive. There is no laboratory evidence of HCV infection. In most cases, no further action is required. However, if recent HCV exposure is suspected, a test for HCV RNA (test code 74585) is suggested. For additional information please refer to http://Polisofia/faq/LSS01k7 (This link is being provided for informational/ educational purposes only.) HEPATITIS C ANTIBODY NON-REACT SERGIO NON-REACT SERGIO [facility] INDEX 0.05 <1.00 [facility] Comment: HCV antibody was non-reactive. There is no laboratory evidence of HCV infection. In most cases, no further action is required. However, if recent HCV exposure is suspected, a test for HCV RNA (test code 21598) is suggested. For additional information please refer to http://Seedrs.[employer]/faq/ZHP69z4 (This link is being provided for informational/ educational purposes only.) 06/01/2020 2:02 PM EDT Gwendolyn Gaming MD HISTORICAL/NON ORDERABLE LABS Final Result Performing Organization Address City/[facility]/ZIP Co de Phone Number [facility] [address] [place] [address], * 3D BILATERAL DIAGN MAMMO 1 (08/28/2019 [...] Most Recently Relevant to Health Maintenance Insurance [facility] < 65 FÁTIMA HALE [id number]
--- OUTSIDE RECORDS SUMMARY | 2025-06-18 16:24 | XMS_ITS | Encounter Summary ---
Author Organization [employer] Address [address] [place] [address] Care Team Providers Care Complaint Evaluation Supervisor Name Role Phone [facility] Primary Care Provider [phone] Reason for Visit * Reason Onset Date Comments Appointment Request 01/03/2023 Encounter Details Date Type Department Care Team ([facility] Contact Info) Description 01/03/2023 Telephone [facility] [address] [place] [address] [facility] [address] [place] [address] Appointment Request Social History Tobacco Use Types [...] documented as of this encounter Care Teams Complaint Evaluation Supervisor Relationship Specialty Start Date End Date Julianne Villarreal FNP [address] [place] [phone] PCP - General Family Medicine 06/09/22 06/08/24 documented as of this encounter
--- OUTSIDE RECORDS SUMMARY | 2025-06-18 16:24 | XMS_ITS | Encounter Summary ---
Author Organization [employer] Address [address] [place] [address] Care Team Providers Care Vegetable Grader Name Role Phone Unavailable Primary Care Provider Unavailabl e Reason for Visit * Reason Comments Med Refill Encounter Details Date Type Department Care Team ([facility] st Contact Info) Description 11/26/2024 Refill [facility] CHC MED & PEDS [address] [place] [address] [facility] [address] [place] [address] Dyspepsia Social History Tobacco Use Types Packs/Day [...]
--- OUTSIDE RECORDS SUMMARY | 2025-06-18 16:24 | XMS_ITS | Clinical Summary ---
Author Organization [facility] Address [address] [place] [address] Care Team Providers Care Continuous Mining Machine Lode Miner Name Role Phone Unavailable Primary Care Provider [...] Cervical Cancer Screening: P ap Smear 2004 Depression Screening 10/15/2024 COVID-19 Vaccine ( - 2023-2 5 season) 2025 Influenza Vaccine (#1) 2025 HIB Vaccines Aged Out No longer eligi [...] 5 Years) and At-Risk Patients (6 to 49 Years) Aged Out No longer eligible b ased on patient's age to complete this topic RSV Immunization Patients Un yong 20 months Aged Out No longer eligible b ased on patient's age to complete this topic Varicella Vaccines Aged Out No longer eligible based on patient's age to complete this topic
--- OUTSIDE RECORDS SUMMARY | 2025-06-18 16:24 | XMS_ITS | Encounter Summary ---
Author Organization [employer] Address [address] [place] [address] Care Team Providers Care Schedule Checker Name Role Phone Unavailable Primary Care Provider Unavailabl e Reason for Visit * Reason Comments Med Refill Encounter Details Date Type Department Care Team ([facility] st Contact Info) Description 09/05/[address] [facility] CHC MED & PEDS [address] [place] [address] [facility] [address] [place] [address] Hidradenitis suppurativa Social History Tobacco Use Types [...]
--- OUTSIDE RECORDS SUMMARY | 2025-06-18 16:24 | XMS_ITS | Encounter Summary ---
Author Organization [employer] Address [address] [place] [address] Care Team Providers Care Director Of Analytics Name Role Phone Unavailable Primary Care Provider Unavailabl e Reason for Visit * Reason Comments Med Refill Encounter Details Date Type Department Care Team ([facility] st Contact Info) Description 09/02/2024 Refill [facility] CHC MED & PEDS [address] [place] [address] Janelle Alberto MD [address] [place] [address] Social History Tobacco Use Types Packs/Day Years [...]
--- OUTSIDE RECORDS SUMMARY | 2025-06-18 16:24 | XMS_ITS | Encounter Summary ---
Author Organization [employer] Address [address] [place] [address] Care Team Providers Care Lurer Name Role Phone Unavailable Primary Care Provider Unavailabl e Reason for Visit * Reason Comments Med Refill Encounter Details Date Type Department Care Team ([facility] st Contact Info) Description 02/18/2025 Refill [facility] CHC MED & PEDS [address] [place] [address] [facility] [address] [place] [address] Dyspepsia Social History Tobacco Use Types Packs/Day [...]
--- OUTSIDE RECORDS SUMMARY | 2025-06-18 16:24 | XMS_ITS | Encounter Summary ---
Author Organization [employer] Address [address] [place] [address] Care Team Providers Care Vice President Of Academic Affairs Name Role Phone Unavailable Primary Care Provider Unavailabl e Reason for Visit * Reason Comments Med Refill Encounter Details Date Type Department Care Team ([facility] st Contact Info) Description 07/08/2024 Refill [facility] CHC MED & PEDS [address] [place] [address] Janelle Alberto MD [address] [place] [address] Social History Tobacco Use Types Packs/Day Years [...]
--- OUTSIDE RECORDS SUMMARY | 2025-06-18 16:24 | XMS_ITS | Encounter Summary ---
Author Organization [employer] Address [address] [place] [address] Care Team Providers Care Clinical Nutritionist Name Role Phone Unavailable Primary Care Provider Unavailabl e Reason for Visit * Reason Comments Med Refill Encounter Details Date Type Department Care Team ([facility] st Contact Info) Description 10/01/[address] [facility] CHC MED & PEDS [address] [place] [address] Janelle Alberto MD [address] [place] [address] Social History Tobacco Use Types Packs/Day Years [...]
--- OUTSIDE RECORDS SUMMARY | 2025-06-18 16:24 | XMS_ITS | Encounter Summary ---
Author Organization [employer] Address [address] [place] [address] Care Team Providers Care Psychological Tests Sales Agent Name Role Phone Unavailable Primary Care Provider Unavailabl e Reason for Visit * Reason Comments Med Refill Encounter Details Date Type Department Care Team ([facility] st Contact Info) Description 12/23/2024 Refill [facility] CHC MED & PEDS [address] [place] [address] [facility] [address] [place] [address] Dyspepsia Social History Tobacco Use Types Packs/Day [...]
--- OUTSIDE RECORDS SUMMARY | 2025-06-18 16:24 | XMS_ITS | Encounter Summary ---
Author Organization [employer] Address [address] [place] [address] Care Team Providers Care Environmental Studies Department Chair Name Role Phone Unavailable Primary Care Provider Unavailabl e Reason for Visit * Reason Comments Med Refill Encounter Details Date Type Department Care Team ([facility] st Contact Info) Description 08/05/2024 Refill [facility] CHC MED & PEDS [address] [place] [address] Janelle Alberto MD [address] [place] [address] Social History Tobacco Use Types Packs/Day Years [...]
--- OUTSIDE RECORDS SUMMARY | 2025-06-18 16:24 | XMS_ITS | Encounter Summary ---
Author Organization [employer] Address [address] [facility] 7 [place] [address] Care Team Providers Care Food Cashier Name Role Phone [facility] Primary Care Provider [phone] Reason for Visit * Reason Comments Med Refill Encounter Details Date Type Department Care Team ([facility] Contact Info) Description 08/15/2023 Refill [facility] MEDICINE 230 [place] [address] [facility] 230 [place] [address] Hidradenitis suppurativa Social History Tobacco Use Types [...] documented as of this encounter Care Teams Food Cashier Relationship Specialty Start Date End Date Julianne Villarreal FNP [address] [place] [id number] PCP - General Family Medicine 06/09/22 06/08/24 documented as of this encounter
--- OUTSIDE RECORDS SUMMARY | 2025-06-18 16:24 | XMS_ITS | Encounter Summary ---
Author Organization [employer] Address [address] [facility] [address] 7t [place] [address] Care Team Providers Care Hospitality Host Name Role Phone Unavailable Primary Care Provider Unavailabl e Reason for Visit * Reason Comments Med Refill Encounter Details Date Type Department Care Team ([facility] st Contact Info) Description 01/21/2025 Refill [facility] CHC MED & PEDS 505 [place] [address] [facility] 230 [place] [address] Dyspepsia Social History Tobacco Use Types Packs/Day [...]
== END 2025-06-18 16:08 | disposition home or self-care (01) ==
LOC: HO.HCS 15:25
PROVIDERS: PCP Internal Medicine; Visit Provider Nurse Practitioner Family
DX: R07.89 Other chest pain (principal); R06.02 Shortness of breath; I10 Essential (primary) hypertension; G47.33 Obstructive sleep apnea (adult) (pediatric); R00.2 Palpitations; E66.01 Morbid (severe) obesity due to excess calories
CPT/HCPCS: 93010; 99214; G2211

== ENCOUNTER → 2025-06-18 15:25 | Outpatient (BNVA) | payer OTHER, SELFPAY | PROVIDERS: PCP Internal Medicine; Visit Provider Nurse Practitioner Family | DX: R07.89 Other chest pain (principal); R06.02 Shortness of breath; R00.2 Palpitations; I10 Essential (primary) hypertension; E66.01 Morbid (severe) obesity due to excess calories; Z68.43 Body mass index [BMI] 50.0-59.9, adult; L73.2 Hidradenitis suppurativa; G47.33 Obstructive sleep apnea (adult) (pediatric) | CPT/HCPCS: 93005; 99212 ==

== ENCOUNTER 2025-07-30 16:06 | Outpatient (REF) | payer OTHER, SELFPAY ==
--- OUTSIDE RECORDS SUMMARY | 2015-05-18 04:45 | XMS_ITS | Continuity of Care Document ---
Author Organization [facility] Address [address] [place] [address] [address] [place] [address] Phone Care Team Providers Care Box Spring Maker Name Role Phone Unavailable Unavailable Unavailable Advance Directives Directive Yes / No Effective Date File Name No Information Encounters Encounter Description Practice Location Reason(s) For Visit Diagnoses Date Provider Providers Copied on Encounter [facility], [address] [place] [address] [address], [place], [address], [place] tel:[phone] [address] [place] [address] OFFICE No Information No Information Referring Provider: DONI MARTINEZ I, [address] [facility] [address], [place], [address]. tel:[phone] Family History Family Member Type Diagnosis Age At Onset No Information Payers Payer name Insurance type Covered constitution party ID Authoriza tion(s) [facility] SERV OPTIONS IND EMNITY [id number] HUMANA HMO [id number] Social History Type Description Quantity Date Captured Comments Sex Female Smoking Status No Information Chief Complaint And Reason For Visit No Information History Of Present Illness Encounter Date Complaint History Of Prese nt Illness No Information Instructions Date Instruction Additional Infor mation No Information Assessments Type Assessment Date No Information
--- OUTSIDE RECORDS SUMMARY | 2016-06-05 20:00 | XMS_ITS | Continuity of Care Document ---
Author Organization [facility] Address [address] [facility] [address] [place] [address] Phone Care Team Providers Care Side Guider Name Role Phone Franklin Ramírez MD Unavailable Unavailable Procedures Procedure Date Office/outpatient visit,[facility] Office/outpatient visit,[facility] [place] 2015 Advance Directives Directive Yes / No Effective Date File Name No Information Encounters Encounter Description Practice Location Reason(s) For Visit Diagnoses Date Provider Providers Copied on Encounter Office/outpat ient visit,[facility], [address], [place], [id number], [place] tel:[phone] [facility] No Information Darrell Reid. [address], [place], [place], [id number] , [place]. tel:[phone] Referring Provider: Lima Phillips MD, [address] [place], [address]. tel:[phone] Office/outpat ient visit,est, [facility], [address], [place], [place], [id number], [place] tel:[phone] [facility] No Information Tirso Nuñez. [address], [address], [place], [place], [id number] , [place]. tel:[phone] Referring Provider: Lima Phillips MD, [address] [place], [address]. tel:[phone] Family History Family Member Type Diagnosis Age At Onset No Information Payers Payer name Insurance type Covered libertarian ID Authoriza tirory(s) Medicare Part B Primary [id number] Medicaid Secondary [id number] Social History Type Description Quantity Date Captured Comments Sex Female Smoking Status No Information Chief Complaint And Reason For Visit No Information Reason For Referral Reason For Referral No Information History Of Present Illness Encounter Date Complaint History Of Prese nt Illness No Information Functional Status Date Functional Assessmen t No Information Instructions Date Instruction Additional Infor mation No Information Assessments Type Assessment Date No Information Patient Care Teams Name Effective Dates (start - stop) Status Members No Information
--- OUTSIDE RECORDS SUMMARY | 2020-06-13 20:00 | XMS_ITS | Continuity of Care Document ---
Author Organization [facility] Address [address] [place] [address] Care Team Providers Care Air Chief Marshal Name Role Phone No Information Unavailable Unavailable Advance Directives Directive Yes / No Effective Date File Name No Information Encounters Encounter Description Practice Location Reason(s) For Visit Diagnoses Date Provider Providers Copied on Encounter [facility], [address] [place] [address], [phone], No Information No Information Family History Family Member Type Diagnosis Age At Onset No Information Payers Payer name Insurance type Covered green party ID Authoriza tion(s) No Information Social History Type Description Quantity Date Captured Comments Sex Female Smoking Status No Information Chief Complaint And Reason For Visit No Information History Of Present Illness Encounter Date Complaint History Of Prese nt Illness No Information Instructions Date Instruction Additional Infor mation No Information Assessments Type Assessment Date No Information
[2025-07-30 17:37] LABS: MANUAL DIFF FLAG NO
[2025-07-30 17:49] LABS: Hematocrit 35.2 % (37.0-47.0); Hemoglobin 10.4 g/dl (12.0-16.0); Imm Gran Abs Auto 0.03 X10*3/uL (0.00-0.03); Imm Gran Pct Auto 0.3 % (0.0-0.4); Lymphocytes Absolute Auto 2.8 X10*3/uL (1.2-4.9); Mean Corpuscular HGB Conc 29.5 g/dl (31.0-35.0); Mean Corpuscular Hemoglobin 26.5 pg (27.0-33.0); Mean Corpuscular Volume 89.6 fL (80.0-98.0); NRBC Abs Auto 0.000 X10*3/uL (0.0-0.012); NRBC Pct Auto 0.0 /100WBC (0.0-0.2); Platelet Count 194 X10*3/uL (160-400); Red Blood Count 3.93 X10*6/uL (4.20-5.50); White Blood Count 9.4 X10*3/uL (4.8-10.8)
[2025-07-30 18:05] LABS: Alanine Aminotransferase 73 U/L (0-31); Albumin Level 4.2 g/dL (3.5-5.0); Alkaline Phosphatase 120 U/L (39-117); Anion Gap 12 (12-20); Aspartate Amino Transferase 104 U/L (5-31); Blood Urea Nitrogen 15 mg/dL (9-16); Calcium 9.5 mg/dL (8.4-10.2); Carbon Dioxide 25 mmol/L (22-29); Chloride 105 mmol/L (96-108); Cholesterol 192 mg/dL (<200); Estimated Glomerular Filt Rate > 60; HDL Cholesterol 47 mg/dL (>40); Potassium 4.1 mmol/L (3.3-5.1); Sodium 138 mmol/L (135-145); Total Protein 9.0 g/dL (6.5-8.0); Triglycerides 203 mg/dL (<150)
--- OUTSIDE RECORDS SUMMARY | 2025-07-30 19:37 | XMS_ITS | Encounter Summary ---
Author Organization [employer] Address [address] [facility] [address] 7[address] [place] [address] Care Team Providers Care Pump Tender Name Role Phone Unavailable Primary Care Provider Unavailabl e Reason for Visit * Reason Comments Med Refill Encounter Details Date Type Department Care Team ([facility] st Contact Info) Description 07/08/2024 Refill [facility] CHC MED & PEDS 505 [place] [address] Janelle Alberto MD 230 [place] [address] Social History Tobacco Use Types Packs/Day Years Used Date Smoking Tobacco: Every Day Cigarettes 0.5 22.8 Started: 2002 Passive Smoke Exposure: Past Smokeless [...]
--- OUTSIDE RECORDS SUMMARY | 2025-07-30 19:37 | XMS_ITS | Encounter Summary ---
Author Organization [employer] Address [address] [facility] [address] 7t [place] [address] Care Team Providers Care Web Marketing Strategist Name Role Phone Unavailable Primary Care Provider Unavailabl e Reason for Visit * Reason Comments Med Refill Encounter Details Date Type Department Care Team ([facility] st Contact Info) Description 08/05/2024 Refill [facility] CHC MED & PEDS 505 [place] [address] Janelle Alberto MD 230 [place] [address] Social History Tobacco Use Types Packs/Day Years [...]
--- OUTSIDE RECORDS SUMMARY | 2025-07-30 19:37 | XMS_ITS | Encounter Summary ---
Author Organization [employer] Address [address] [facility] [address] 7t [place] [address] Care Team Providers Care Supervisor Special Services Name Role Phone Unavailable Primary Care Provider Unavailabl e Reason for Visit * Reason Comments Med Refill Encounter Details Date Type Department Care Team ([facility] st Contact Info) Description 10/29/2024 Refill [facility] CHC MED & PEDS 505 [place] [address] [facility] 230 [place] [address] Dyspepsia Social History Tobacco Use Types Packs/Day [...]
--- OUTSIDE RECORDS SUMMARY | 2025-07-30 19:37 | XMS_ITS | Encounter Summary ---
Author Organization [employer] Address [address] [facility] 7 [place] [address] Care Team Providers Care Plastic Printer Name Role Phone [facility] Primary Care Provider [phone] Reason for Visit * Reason Comments Med Refill Encounter Details Date Type Department Care Team ([facility] Contact Info) Description 08/15/2023 Refill [facility] MEDICINE 230 [place] [address] [facility] 230 [place] [address] Hidradenitis suppurativa Social History Tobacco Use Types [...] documented as of this encounter Care Teams Plastic Printer Relationship Specialty Start Date End Date Julianne Villarreal FNP [address] [place] [phone] PCP - General Family Medicine 06/09/22 06/08/24 documented as of this encounter
--- OUTSIDE RECORDS SUMMARY | 2025-07-30 19:37 | XMS_ITS | Encounter Summary ---
Author Organization [employer] Address [address] [facility] [address] 7t [place] [address] Care Team Providers Care Superintendent Storage Area Name Role Phone Unavailable Primary Care Provider Unavailabl e Reason for Visit * Reason Comments Med Refill Encounter Details Date Type Department Care Team ([facility] st Contact Info) Description 09/02/2024 Refill [facility] CHC MED & PEDS 505 [place] [address] Janelle Alberto MD 230 [place] [address] Social History Tobacco Use Types Packs/Day Years [...]
--- OUTSIDE RECORDS SUMMARY | 2025-07-30 19:37 | XMS_ITS | Encounter Summary ---
Author Organization [employer] Address [address] [facility] [address] 7[address] [place] [address] Care Team Providers Care Fire Department Marine Engineer Name Role Phone Unavailable Primary Care Provider Unavailabl e Reason for Visit * Reason Comments Med Refill Encounter Details Date Type Department Care Team ([facility] st Contact Info) Description 09/05/2024 Refill [facility] CHC MED & PEDS 505 [place] [address] [facility] 230 [place] [address] Hidradenitis suppurativa Social History Tobacco Use Types [...]
--- OUTSIDE RECORDS SUMMARY | 2025-07-30 19:37 | XMS_ITS | Clinical Summary ---
Author Organization [facility] Address [address] [place] [address] Care Team Providers Care Music Box Mechanic Name Role Phone Unavailable Primary Care Provider [...] Cervical Cancer Screening: P ap Smear 2004 HPV Vaccines (1 - 3-dose SCD M series) 2010 Depression Screening 10/15/2024 COVID-19 Vaccine ( - 2023-2 5 season) 2025 Influenza Vaccine (#1) 2025 RSV Immunization Adult Patie nts (1 - 1-dose 75+ series) 2058 HIB Vaccines Aged Out No longer eligi [...]
--- OUTSIDE RECORDS SUMMARY | 2025-07-30 19:37 | XMS_ITS | Encounter Summary ---
Author Organization [employer] Address [address] [facility] [address] 7[address] [place] [address] Care Team Providers Care Seafood Harvester Name Role Phone Unavailable Primary Care Provider Unavailabl e Reason for Visit * Reason Comments Med Refill Encounter Details Date Type Department Care Team ([facility] st Contact Info) Description 11/26/2024 Refill [facility] CHC MED & PEDS 505 [place] [address] [facility] 230 [place] [address] Dyspepsia Social History Tobacco Use Types Packs/Day [...]
--- OUTSIDE RECORDS SUMMARY | 2025-07-30 19:37 | XMS_ITS | Encounter Summary ---
Author Organization [employer] Address [address] [facility] [address] 7t [place] [address] Care Team Providers Care Intensive Care Unit Nurse Name Role Phone Unavailable Primary Care Provider Unavailabl e Reason for Visit * Reason Comments Med Refill Encounter Details Date Type Department Care Team ([facility] st Contact Info) Description 01/21/2025 Refill [facility] CHC MED & PEDS 505 [place] [address] [facility] 230 [place] [address] Dyspepsia Social History Tobacco Use Types Packs/Day [...]
--- OUTSIDE RECORDS SUMMARY | 2025-07-30 19:37 | XMS_ITS | Encounter Summary ---
Author Organization [employer] Address [address] [facility] 7 [place] [address] Care Team Providers Care Spindle Repairer Name Role Phone [facility] Primary Care Provider [phone] Reason for Visit * Reason Onset Date Comments Appointment Request 01/03/2023 Encounter Details Date Type Department Care Team ([facility] Contact Info) Description 01/03/2023 Telephone [facility] MEDICINE 230 [place] [address] [facility] 230 [place] [address] Appointment Request Social History Tobacco Use Types [...] documented as of this encounter Care Teams Spindle Repairer Relationship Specialty Start Date End Date Julianne Villarreal FNP [address] [place] [address] PCP - General Family Medicine 06/09/22 06/08/24 documented as of this encounter
--- OUTSIDE RECORDS SUMMARY | 2025-07-30 19:37 | XMS_ITS | Encounter Summary ---
Author Organization [employer] Address [address] [facility] [address] 7t [place] [address] Care Team Providers Care Iron Installer Name Role Phone Unavailable Primary Care Provider Unavailabl e Reason for Visit * Reason Comments Med Refill Encounter Details Date Type Department Care Team ([facility] st Contact Info) Description 02/18/[address] [facility] CHC MED & PEDS 505 [place] [address] [facility] 230 [place] [address] Dyspepsia Social History Tobacco Use Types Packs/Day [...]
--- OUTSIDE RECORDS SUMMARY | 2025-07-30 19:37 | XMS_ITS | Clinical Summary ---
Author Organization [employer] Address [address] [facility] 7 [place] [address] Care Team Providers Care Casting Trucker Name Role Phone Unavailable Primary Care Provider [...] 11/02/2022 Overview (11/19/2022): Sleep study completed at [facility] 11/02/2022 Overview (11/19/2022): Pap: Prior screening [...] Hyperthyroidism 08/07/2018 Overview (11/02/2022): - Followed by [facility] [place]ology, last seen 01/2022. 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 For additional information please refer to http://education.dermSearch.E[employer]id Technologies/faq/GSA881 (This link is being provided for informational/ educational purposes only.) The performance of this assay has not been clinically validated in patients less than 2 years old. 10/27/2022 2:29 PM EST 10/27/2022 2:30 PM EST Narrative [facility] - 10/30/2022 4:26 PM EST FASTING:UNKNOWN FASTING: UNKNOWN [facility] LAB BLOOD ORDERABLES Final Re sult [facility] [address] [facility], [place] [address] [facility] [place] [facility] [address] , ([address]) [place] [address] * (ABNORMAL) Lipid Panel, Standard (10/27/2022 2:29 PM EST) Cholesterol, Total 155 <200 mg/dL [facility] [place] [facility] HDL Cholesterol 48(L) > OR = 50 mg/dL [facility] [place] [facility] Triglycerides 200(H) <150 mg/dL [facility] [place] [facility] Comment: If a non-fasting specimen was collected, consider repeat triglyceride testing on a fasting specimen if clinically indicated. Miguel et al. J. of Clin. Lipidol. 2015;9:129-169. LDL Cholesterol 77 mg/dL (calc) [facility] [place] [facility] Comment: Reference range: <100 Desirable range <100 mg/dL for primary prevention; <70 mg/dL for patients with CHD or diabetic patients with > or = 2 CHD risk factors. LDL-C is now calculated using the Jeffrey-Jose Carlos calculation, which is a validated novel method providing better accuracy than the Friedewald equation in the estimation of LDL-C. Jeffrey ROSENBAUM et al. ANN. 2013;310(19): 3333-3625 (http://education.Netsocket.Energid Technologies/faq/VNJ024) Chol/HDLC Ratio 3.2 <5.0 (calc) [facility] [place] [facility] Non-HDL Cholesterol 107 <130 mg/dL (calc) [facility] Comment: For patients with diabetes plus 1 major ASCVD risk factor, treating to a non-HDL-C goal of <100 mg/dL (LDL-C of <70 mg/dL) is considered a therapeutic option. 10/27/2022 2:29 PM EST 10/27/2022 2:30 PM EST Narrative [facility] - 10/30/2022 4:26 PM EST FASTING:UNKNOWN FASTING: UNKNOWN [facility] STUDENT TEACHING COORDINATOR LAB BLOOD ORDERABLES Final Re sult [facility] [address] [facility], [place] [address] [facility] [address] [facility], ([address]) [place] [address] * HEPATITIS C AB W/REFL TO HCV RNA, QN, PCR (06/01/2020 2:02 PM EDT) HEPATITIS C ANTIBODY NON-REACT SERGIO NON-REACT SERGIO [facility] INDEX 0.05 <1.00 [facility] Comment: HCV antibody was non-reactive. There is no laboratory evidence of HCV infection. In most cases, no further action is required. However, if recent HCV exposure is suspected, a test for HCV RNA (test code 53374) is suggested. For additional information please refer to http://JamOrigin.Socialinus/faq/EHD71g1 (This link is being provided for informational/ educational purposes only.) HEPATITIS C ANTIBODY NON-REACT SERGIO NON-REACT SERGIO [facility] INDEX 0.05 <1.00 [facility] Comment: HCV antibody was non-reactive. There is no laboratory evidence of HCV infection. In most cases, no further action is required. However, if recent HCV exposure is suspected, a test for HCV RNA (test code 43525) is suggested. For additional information please refer to http://JamOrigin.Socialinus/faq/OWN19u8 (This link is being provided for informational/ educational purposes only.) 06/01/2020 2:02 PM EDT Gwendolyn Gaming MD HISTORICAL/NON ORDERABLE LABS Final Result Performing Organization Address City/[facility]/ZIP Co de Phone Number [facility] [address] [place] [address], [place] * 3D BILATERAL DIAGN MAMMO 1 (08/28/2019 [...] Most Recently Relevant to Health Maintenance Insurance * Guarantor: Danielle Alamo Account Type Relation to Patient Date of Phone Billing Address Personal/Family Self [address] [address] [facility] < 65 [place] [address] * Guarantor: Danielle Alamo Account Type Relation to Patient Date of Phone Billing Address Personal/Family Self [address] [address] * Guarantor: Danielle Alamo Account Type Relation to Patient Date of Phone Billing Address Personal/Family Self [address] [address] * Guarantor: Danielle Alamo Account Type Relation to Patient Date of Phone Billing Address Personal/Family Self [address] [address]
--- OUTSIDE RECORDS SUMMARY | 2025-07-30 19:37 | XMS_ITS | Encounter Summary ---
Author Organization [employer] Address [address] [facility] [facility] [address] 7t [place] [address] Care Team Providers Care Machine Shop Apprentice Name Role Phone Unavailable Primary Care Provider Unavailabl e Reason for Visit * Reason Comments Med Refill Encounter Details Date Type Department Care Team ([facility] st Contact Info) Description 10/01/2024 Refill [facility] CHC MED & PEDS 505 [place] [address] Janelle Alberto MD 230 [place] [address] Social History Tobacco Use Types Packs/Day Years [...]
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
--- OUTSIDE RECORDS SUMMARY | 2025-07-30 19:37 | XMS_ITS | Encounter Summary ---
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
== END 2025-07-30 16:07 | disposition home or self-care (01) ==
LOC: HO.HHCL 16:06
PROVIDERS: PCP Internal Medicine; Visit Provider Registered Nurse Psychiatric/Mental Health
DX: Z79.899 Other long term (current) drug therapy (principal)
CPT/HCPCS: 36415; 80053; 80061; 80076; 82248; 84443; 85025